=== PATIENT | male | born 1965 | race Caucasian/White ===

== ENCOUNTER 2021-06-26 10:28 | Outpatient (REF) | payer OTHER, SELFPAY ==
[2021-06-26 10:34] LABS: MANUAL DIFF FLAG NO
[2021-06-26 10:52] LABS: Basophils Percent Auto 0.3 % (0-2); Eosinophils Absolute Auto 0.1 X10*3/uL (0.0-0.4); Eosinophils Percent Auto 1.4 % (0-4); Hematocrit 45.1 % (42-52); Hemoglobin 15.5 g/dl (14.0-18.0); Imm Gran Abs Auto 0.05 X10*3/uL (0.00-0.03); Imm Gran Pct Auto 0.6 % (0.0-0.4); Lymphocytes Absolute Auto 2.2 X10*3/uL (1.2-4.9); Lymphocytes Percent Auto 28.3 % (20-40); Mean Corpuscular HGB Conc 34.4 g/dl (31.0-36.0); Mean Corpuscular Hemoglobin 30.2 pg (27.0-33.0); Mean Corpuscular Volume 87.9 fL (80-98); Mean Platelet Volume 9.3 fL (9.4-12.4); Monocytes Absolute Auto 0.5 X10*3/uL (0.1-1.2); Monocytes Percent Auto 5.9 % (2-11); Neutrophils Percent Auto 63.5 % (45-73); Platelet Count 248 X10*3/uL (160-400); Red Blood Count 5.13 X10*6/uL (4.60-5.80); Red Cell Distribution Width 12.7 % (11.0-16.0); White Blood Count 7.9 X10*3/uL (4.8-10.8)
[2021-06-26 11:02] LABS: Glucose Urine UA NEG (NEG); Leukocyte Esterase Urine NEG (NEG); Nitrite Urine NEG (NEG); Specific Gravity - Urine 1.025 (1.005-1.025); Urine Blood TRACE (NEG); Urine Ketones NEG (NEG); Urine Protein NEG (NEG-TRACE)
[2021-06-26 11:04] LABS: Appearance Urine CLEAR; Color Urine YELLOW
[2021-06-26 11:12] LABS: RBC Urine 0-2 /HPF (0); WBC Urine 0 /HPF (0-4)
[2021-06-26 11:37] LABS: PSA,Total (Free>4and<10) 0.16 ng/mL (0.00-4.00)
[2021-06-26 11:38] LABS: Alanine Aminotransferase 34 U/L (0-40); Albumin Level 4.5 g/dL (3.5-5.0); Alkaline Phosphatase 61 U/L (39-117); Anion Gap 16 (12-20); Aspartate Amino Transferase 18 U/L (5-37); Bilirubin Total 0.6 mg/dL (0.0-1.0); Blood Urea Nitrogen 12 mg/dL (9-16); Calcium 8.8 mg/dL (8.4-10.2); Carbon Dioxide 22 mmol/L (22-29); Chloride 104 mmol/L (96-108); Cholesterol 262 mg/dL; Estimated Glomerular Filt Rate > 60; Glucose Fasting 195 mg/dL (60-99); HDL Cholesterol 42 mg/dL; LDL Cholesterol Calculated 168 mg/dl; Potassium 4.2 mmol/L (3.3-5.1); Sodium 138 mmol/L (135-145); Total Protein 7.1 g/dL (6.5-8.0); Triglycerides 262 mg/dL
== END 2021-06-26 10:29 | disposition home or self-care (01) ==
LOC: HO.LNP 10:28
PROVIDERS: Visit Provider Internal Medicine
DX: Z12.5 Encounter for screening for malignant neoplasm of prostate (principal); E78.00 Pure hypercholesterolemia, unspecified; I10 Essential (primary) hypertension; G47.33 Obstructive sleep apnea (adult) (pediatric)
CPT/HCPCS: 80053; 80061; 81001; 81003; 84153; 85025

== ENCOUNTER → 2022-01-01 09:02 | Outpatient (BNVA) | payer OTHER, SELFPAY | PROVIDERS: PCP Internal Medicine; Visit Provider Internal Medicine | DX: S00.93XA Contusion of unspecified part of head, initial encounter (principal); S20.20XA Contusion of thorax, unspecified, initial encounter; S50.01XA Contusion of right elbow, initial encounter; S46.911A Strain of unspecified muscle, fascia and tendon at shoulder and upper arm level, right arm, initial encounter; S16.1XXA Strain of muscle, fascia and tendon at neck level, initial encounter; S46.811A Strain of other muscles, fascia and tendons at shoulder and upper arm level, right arm, initial encounter; W01.0XXA Fall on same level from slipping, tripping and stumbling without subsequent striking against object, initial encounter | CPT/HCPCS: 72040; 72072; 73080; 99204 ==

== ENCOUNTER → 2022-01-04 08:54 | Outpatient (BNVA) | payer OTHER, SELFPAY | PROVIDERS: PCP Internal Medicine; Visit Provider Physician Assistant Medical | DX: S06.2X0A Diffuse traumatic brain injury without loss of consciousness, initial encounter (principal); S16.1XXA Strain of muscle, fascia and tendon at neck level, initial encounter; S20.20XA Contusion of thorax, unspecified, initial encounter; S50.01XA Contusion of right elbow, initial encounter; W01.0XXA Fall on same level from slipping, tripping and stumbling without subsequent striking against object, initial encounter | CPT/HCPCS: 99213 ==

== ENCOUNTER → 2022-01-11 07:16 | Outpatient (BNVA) | payer OTHER, SELFPAY | PROVIDERS: PCP Internal Medicine; Visit Provider Physician Assistant Medical | DX: S00.93XA Contusion of unspecified part of head, initial encounter (principal); S16.1XXA Strain of muscle, fascia and tendon at neck level, initial encounter; S46.819A Strain of other muscles, fascia and tendons at shoulder and upper arm level, unspecified arm, initial encounter; S46.911A Strain of unspecified muscle, fascia and tendon at shoulder and upper arm level, right arm, initial encounter; S50.01XA Contusion of right elbow, initial encounter; W18.30XA Fall on same level, unspecified, initial encounter | CPT/HCPCS: 99213 ==

== ENCOUNTER 2022-01-11 11:29 | Outpatient (REF) | payer OTHER, SELFPAY ==
[2022-01-11 11:34] LABS: MANUAL DIFF FLAG NO
[2022-01-11 12:22] LABS: Basophils Percent Auto 0.5 % (0-2); Eosinophils Percent Auto 0.3 % (0-4); Hemoglobin 15.7 g/dl (14.0-18.0); Imm Gran Abs Auto 0.01 X10*3/uL (0.00-0.03); Imm Gran Pct Auto 0.1 % (0.0-0.4); Mean Corpuscular HGB Conc 33.4 g/dl (31.0-36.0); Mean Corpuscular Hemoglobin 30.4 pg (27.0-33.0); Mean Corpuscular Volume 90.9 fL (80.0-98.0); Mean Platelet Volume 9.3 fL (9.4-12.4); Monocytes Absolute Auto 0.4 X10*3/uL (0.1-1.2); Monocytes Percent Auto 5.6 % (2-11); Neutrophils Absolute Auto 4.8 x10*3/uL (2.0-8.3); Neutrophils Percent Auto 65.5 % (45-73); Platelet Count 228 X10*3/uL (160-400); Red Blood Count 5.17 X10*6/uL (4.60-5.80); Red Cell Distribution Width 13.1 % (11.0-16.0); White Blood Count 7.3 X10*3/uL (4.8-10.8)
[2022-01-11 12:36] LABS: Alanine Aminotransferase 24 U/L (0-40); Albumin Level 4.6 g/dL (3.5-5.0); Alkaline Phosphatase 46 U/L (39-117); Anion Gap 13 (12-20); Aspartate Amino Transferase 15 U/L (5-37); Blood Urea Nitrogen 19 mg/dL (9-16); Calcium 9.3 mg/dL (8.4-10.2); Carbon Dioxide 25 mmol/L (22-29); Chloride 104 mmol/L (96-108); Cholesterol 224 mg/dL; Estimated Glomerular Filt Rate > 60; Glucose Fasting 104 mg/dL (60-99); HDL Cholesterol 41 mg/dL; LDL Cholesterol Calculated 161 mg/dl; Potassium 4.6 mmol/L (3.3-5.1); Sodium 137 mmol/L (135-145); Total Protein 6.9 g/dL (6.5-8.0); Triglycerides 111 mg/dL
[2022-01-11 12:42] LABS: Appearance Urine HAZY; Color Urine YELLOW; Glucose Urine UA NEG (NEG); Leukocyte Esterase Urine NEG (NEG); Nitrite Urine NEG (NEG); Specific Gravity - Urine 1.025 (1.005-1.025); Urine Blood NEG (NEG); Urine Ketones NEG (NEG); Urine Protein NEG (NEG-TRACE)
[2022-01-11 12:59] LABS: PSA,Total (Free>4and<10) 0.36 ng/mL (0.00-4.00)
== END 2022-01-11 11:30 | disposition home or self-care (01) ==
LOC: HO.LNP 11:29
PROVIDERS: Visit Provider Internal Medicine
DX: Z00.00 Encounter for general adult medical examination without abnormal findings (principal); Z12.5 Encounter for screening for malignant neoplasm of prostate; E78.00 Pure hypercholesterolemia, unspecified; G47.33 Obstructive sleep apnea (adult) (pediatric); I10 Essential (primary) hypertension; G62.9 Polyneuropathy, unspecified
CPT/HCPCS: 80053; 80061; 81003; 84153; 85025

== ENCOUNTER → 2022-01-24 10:28 | Outpatient (BNVA) | payer OTHER, SELFPAY | PROVIDERS: PCP Internal Medicine; Visit Provider Physician Assistant Medical | DX: S00.93XD Contusion of unspecified part of head, subsequent encounter (principal); S46.819D Strain of other muscles, fascia and tendons at shoulder and upper arm level, unspecified arm, subsequent encounter; S29.012D Strain of muscle and tendon of back wall of thorax, subsequent encounter; S46.911D Strain of unspecified muscle, fascia and tendon at shoulder and upper arm level, right arm, subsequent encounter; S50.01XD Contusion of right elbow, subsequent encounter; X58.XXXD Exposure to other specified factors, subsequent encounter | CPT/HCPCS: 99213 ==

== ENCOUNTER → 2022-02-14 13:14 | Outpatient (BNVA) | payer OTHER, SELFPAY | PROVIDERS: PCP Internal Medicine; Visit Provider Physician Assistant Medical | DX: S00.93XD Contusion of unspecified part of head, subsequent encounter (principal); S16.1XXD Strain of muscle, fascia and tendon at neck level, subsequent encounter; S29.012D Strain of muscle and tendon of back wall of thorax, subsequent encounter; S46.911D Strain of unspecified muscle, fascia and tendon at shoulder and upper arm level, right arm, subsequent encounter; S50.01XD Contusion of right elbow, subsequent encounter; W18.30XD Fall on same level, unspecified, subsequent encounter | CPT/HCPCS: 99213 ==

== ENCOUNTER → 2022-02-21 07:59 | Outpatient (BNVA) | payer OTHER, SELFPAY | PROVIDERS: PCP Internal Medicine; Visit Provider Physician Assistant Medical | DX: S00.93XD Contusion of unspecified part of head, subsequent encounter (principal); S16.1XXD Strain of muscle, fascia and tendon at neck level, subsequent encounter; S29.012D Strain of muscle and tendon of back wall of thorax, subsequent encounter; W18.30XD Fall on same level, unspecified, subsequent encounter | CPT/HCPCS: 99213 ==

== ENCOUNTER → 2022-03-08 07:26 | Outpatient (BNVA) | payer OTHER, SELFPAY | PROVIDERS: PCP Internal Medicine; Visit Provider Physician Assistant Medical | DX: S00.93XD Contusion of unspecified part of head, subsequent encounter (principal); S16.1XXD Strain of muscle, fascia and tendon at neck level, subsequent encounter; S29.012D Strain of muscle and tendon of back wall of thorax, subsequent encounter; W18.30XD Fall on same level, unspecified, subsequent encounter | CPT/HCPCS: 99213 ==

== ENCOUNTER → 2022-03-25 07:25 | Outpatient (BNVA) | payer OTHER, SELFPAY | PROVIDERS: PCP Internal Medicine; Visit Provider Physician Assistant Medical | DX: S00.93XD Contusion of unspecified part of head, subsequent encounter (principal); S16.1XXD Strain of muscle, fascia and tendon at neck level, subsequent encounter; S29.012D Strain of muscle and tendon of back wall of thorax, subsequent encounter; W18.30XD Fall on same level, unspecified, subsequent encounter | CPT/HCPCS: 99213 ==

== ENCOUNTER → 2022-04-15 12:50 | Outpatient (BNVA) | payer OTHER, SELFPAY | PROVIDERS: PCP Internal Medicine; Visit Provider Internal Medicine | DX: M48.34 Traumatic spondylopathy, thoracic region (principal); S13.4XXD Sprain of ligaments of cervical spine, subsequent encounter | CPT/HCPCS: 99202 ==

== ENCOUNTER → 2022-04-25 07:30 | Outpatient (BNVA) | payer OTHER, SELFPAY | PROVIDERS: PCP Internal Medicine; Visit Provider Physician Assistant Medical | DX: S00.93XD Contusion of unspecified part of head, subsequent encounter (principal); S16.1XXD Strain of muscle, fascia and tendon at neck level, subsequent encounter; W01.0XXD Fall on same level from slipping, tripping and stumbling without subsequent striking against object, subsequent encounter | CPT/HCPCS: 99213 ==

== ENCOUNTER → 2022-05-23 07:38 | Outpatient (BNVA) | payer OTHER, SELFPAY | PROVIDERS: PCP Internal Medicine; Visit Provider Physician Assistant Medical | DX: S00.93XD Contusion of unspecified part of head, subsequent encounter (principal); S16.1XXD Strain of muscle, fascia and tendon at neck level, subsequent encounter; S29.012D Strain of muscle and tendon of back wall of thorax, subsequent encounter; W01.0XXD Fall on same level from slipping, tripping and stumbling without subsequent striking against object, subsequent encounter | CPT/HCPCS: 99213 ==

== ENCOUNTER 2022-06-19 06:10 | Outpatient (REF) | payer OTHER, SELFPAY ==
--- NOTE | ~2022-06-19 | FL_ITS ---
EXAMINATION: XR FLUOROSCOPY WITH IMAGES CLINICAL INFORMATION: Traumatic spondylopathy. COMPARISON: None. TECHNIQUE: Fluoroscopy performed by Mariela Ortiz. Fluoroscopy time: 0.3 minutes. Cumulative Dose: 0.0898 mGy. DAP: 0.0898 Gy-cm2. Images: 3. FINDINGS: There are at least 5 needles positioned adjacent to left pedicles of first, second, third, fourth and fifth vertebrae and adjacent contrast for pain management. Visualized bones are grossly unremarkable. FL/FL guidance in treatment room IMPRESSION: Fluoroscopy provided to referrer for pain management.
== END 2022-06-19 06:11 | disposition home or self-care (01) ==
LOC: HO.RADIR 06:10
PROVIDERS: Visit Provider Internal Medicine
DX: M48.34 Traumatic spondylopathy, thoracic region (principal)
CPT/HCPCS: 64490; 64491; 64492; J1040; J2795

== ENCOUNTER → 2022-06-27 07:25 | Outpatient (BNVA) | payer OTHER, SELFPAY | PROVIDERS: PCP Internal Medicine; Visit Provider Physician Assistant Medical | DX: S00.93XD Contusion of unspecified part of head, subsequent encounter (principal); S16.1XXD Strain of muscle, fascia and tendon at neck level, subsequent encounter; S29.012D Strain of muscle and tendon of back wall of thorax, subsequent encounter; W01.0XXD Fall on same level from slipping, tripping and stumbling without subsequent striking against object, subsequent encounter; M54.10 Radiculopathy, site unspecified | CPT/HCPCS: 99213 ==

== ENCOUNTER 2022-07-12 07:12 | Outpatient (REF) | payer OTHER, SELFPAY ==
--- NOTE | ~2022-07-12 | MR_ITS ---
EXAMINATION: MR THORACIC SPINE WITHOUT CONTRAST CLINICAL INFORMATION: Fall, sprain, radiculopathy. COMPARISON: Thoracic spine radiographs 01/01/2022. TECHNIQUE: MRI of the thoracic spine was obtained using routine sequences without contrast. FINDINGS: Alignment is normal. Vertebral heights are preserved. No acute bone marrow signal changes. There is a slight loss of intervertebral disc height and T2 signal intensity at multiple levels related to disc degeneration. There are a few shallow protrusions and/or bulging discs causing minimal indentation of the thecal sac. There is no canal or neuroforaminal compromise. No cord compression or abnormal intramedullary signal changes. Limited visualization of intrathoracic anatomy reveals no abnormal finding. Specifically there is no paraspinal soft tissue mass or collection. MR/MR thoracic spine wo con IMPRESSION: Mild multilevel degenerative spondylosis of the thoracic spine. No canal or neuroforaminal compromise. No cord compression or abnormal intramedullary signal changes.
== END 2022-07-12 07:13 | disposition home or self-care (01) ==
LOC: HO.MRI 07:12
PROVIDERS: Visit Provider Internal Medicine
DX: M54.14 Radiculopathy, thoracic region (principal)
CPT/HCPCS: 72146

== ENCOUNTER → 2022-08-01 07:35 | Outpatient (BNVA) | payer OTHER, SELFPAY | PROVIDERS: PCP Internal Medicine; Visit Provider Physician Assistant Medical | DX: S00.93XD Contusion of unspecified part of head, subsequent encounter (principal); S16.1XXD Strain of muscle, fascia and tendon at neck level, subsequent encounter; S29.012D Strain of muscle and tendon of back wall of thorax, subsequent encounter; W01.0XXD Fall on same level from slipping, tripping and stumbling without subsequent striking against object, subsequent encounter; M54.13 Radiculopathy, cervicothoracic region | CPT/HCPCS: 99213 ==

== ENCOUNTER 2023-01-14 11:38 | Outpatient (REF) | payer OTHER, SELFPAY ==
[2023-01-14 11:42] LABS: MANUAL DIFF FLAG NO
[2023-01-14 12:10] LABS: Basophils Percent Auto 0.4 % (0-2); Hematocrit 45.4 % (42.0-52.0); Hemoglobin 15.2 g/dl (14.0-18.0); Imm Gran Abs Auto 0.02 X10*3/uL (0.00-0.03); Imm Gran Pct Auto 0.2 % (0.0-0.4); Lymphocytes Absolute Auto 2.4 X10*3/uL (1.2-4.9); Lymphocytes Percent Auto 24.7 % (20-40); Mean Corpuscular HGB Conc 33.5 g/dl (31.0-36.0); Mean Corpuscular Hemoglobin 29.6 pg (27.0-33.0); Mean Corpuscular Volume 88.3 fL (80.0-98.0); Mean Platelet Volume 8.9 fL (9.4-12.4); Monocytes Absolute Auto 0.5 X10*3/uL (0.1-1.2); Neutrophils Absolute Auto 6.7 x10*3/uL (2.0-8.3); Neutrophils Percent Auto 69.7 % (45-73); Platelet Count 340 X10*3/uL (160-400); Red Blood Count 5.14 X10*6/uL (4.60-5.80); Red Cell Distribution Width 12.6 % (11.0-16.0); White Blood Count 9.6 X10*3/uL (4.8-10.8)
[2023-01-14 12:14] LABS: Appearance Urine Clear; Color Urine Dark Yellow; Glucose Urine UA Negative (Negative); Leukocyte Esterase Urine Negative (Negative); Nitrite Urine Negative (Negative); PH 6.5 (5.0-9.0); Specific Gravity - Urine >= 1.030 (1.005-1.025); UMIC TRIGGER UACC YES; Urine Blood Negative (Negative); Urine Ketones Trace mg/dL (Negative); Urine Protein 30 (1+) mg/dL (Neg-Trace)
[2023-01-14 12:18] LABS: Estimated Average Glucose 131 mg/dL; Hemoglobin A1c % 6.2 %
[2023-01-14 12:24] LABS: Bacteria Urine None Seen (None Seen); Calcium Oxalate Crystals Urine Present; Squamous Epithelial Cell Urine 0-2 /HPF (0-2); WBC Urine 0-5 /HPF (0-5)
[2023-01-14 12:32] LABS: Alanine Aminotransferase 26 U/L (0-40); Albumin Level 4.6 g/dL (3.5-5.0); Alkaline Phosphatase 44 U/L (39-117); Anion Gap 16 (12-20); Aspartate Amino Transferase 16 U/L (5-37); Bilirubin Direct 0.2 mg/dL (0.0-0.5); Bilirubin Total 0.6 mg/dL (0.0-1.0); Blood Urea Nitrogen 16 mg/dL (9-16); Calcium 9.2 mg/dL (8.4-10.2); Carbon Dioxide 22 mmol/L (22-29); Chloride 105 mmol/L (96-108); Cholesterol 273 mg/dL; Estimated Glomerular Filt Rate > 60; Glucose Fasting 140 mg/dL (60-99); HDL Cholesterol 50 mg/dL; LDL Cholesterol Calculated 191 mg/dl; Potassium 4.1 mmol/L (3.3-5.1); Sodium 139 mmol/L (135-145); Total Protein 6.8 g/dL (6.5-8.0); Triglycerides 163 mg/dL
[2023-01-14 12:47] LABS: Microalbum/Creatinine Ratio Ur 14.8 ug/mg cr
[2023-01-14 12:49] LABS: Reflex LDLD? No
== END 2023-01-14 11:39 | disposition home or self-care (01) ==
LOC: HO.LNP 11:38
PROVIDERS: Visit Provider Internal Medicine
DX: Z12.5 Encounter for screening for malignant neoplasm of prostate (principal); E78.00 Pure hypercholesterolemia, unspecified; G47.33 Obstructive sleep apnea (adult) (pediatric); I10 Essential (primary) hypertension; R73.03 Prediabetes
CPT/HCPCS: 80053; 80061; 80076; 81001; 82043; 82248; 83036; 84153; 85025

== ENCOUNTER 2023-02-10 15:50 | Outpatient (REF) | payer OTHER, SELFPAY ==
[2023-02-10 17:57] LABS: Appearance Urine Turbid; Color Urine Yellow; Glucose Urine UA Negative (Negative); Leukocyte Esterase Urine Negative (Negative); Nitrite Urine Negative (Negative); PH 5.5 (5.0-9.0); Specific Gravity - Urine >= 1.030 (1.005-1.025); Urine Blood Negative (Negative); Urine Ketones Trace mg/dL (Negative); Urine Protein Negative (Neg-Trace)
[2023-02-10 18:00] LABS: Bacteria Urine None Seen (None Seen); Hyaline Casts Urine 0-2 /LPF (0-2); RBC Urine 0-2 /HPF (0-2); Squamous Epithelial Cell Urine 0-2 /HPF (0-2); WBC Urine 0-5 /HPF (0-5)
== END 2023-02-10 15:51 | disposition home or self-care (01) ==
LOC: HO.LNP 15:50
PROVIDERS: Visit Provider Internal Medicine
DX: R31.9 Hematuria, unspecified (principal)
CPT/HCPCS: 81001

== ENCOUNTER 2023-05-13 10:47 | Outpatient (REF) | payer SELFPAY ==
[2023-05-13 11:31] LABS: Estimated Average Glucose 123 mg/dL; Hemoglobin A1c % 5.9 %
[2023-05-13 11:36] LABS: Alanine Aminotransferase 40 U/L (0-40); Albumin Level 4.9 g/dL (3.5-5.0); Alkaline Phosphatase 54 U/L (39-117); Aspartate Amino Transferase 20 U/L (5-37); Bilirubin Direct 0.2 mg/dL (0.0-0.5); Bilirubin Total 0.9 mg/dL (0.0-1.0); Cholesterol 210 mg/dL; Glucose Fasting 148 mg/dL (60-99); HDL Cholesterol 56 mg/dL; LDL Cholesterol Calculated 119 mg/dl; Total Protein 7.3 g/dL (6.5-8.0); Triglycerides 179 mg/dL
[2023-05-13 14:10] LABS: Reflex LDLD? No
== END 2023-05-13 10:48 | disposition home or self-care (01) ==
LOC: HO.LNP 10:47
PROVIDERS: Visit Provider Internal Medicine
DX: R73.03 Prediabetes (principal); E78.00 Pure hypercholesterolemia, unspecified
CPT/HCPCS: 80061; 80076; 82947; 83036

== ENCOUNTER 2023-08-19 11:36 | Outpatient (REF) | payer SELFPAY ==
[2023-08-19 12:32] LABS: Alanine Aminotransferase 38 U/L (0-40); Albumin Level 4.9 g/dL (3.5-5.0); Alkaline Phosphatase 48 U/L (39-117); Aspartate Amino Transferase 21 U/L (5-37); Bilirubin Direct 0.2 mg/dL (0.0-0.5); Bilirubin Total 0.7 mg/dL (0.0-1.0); Cholesterol 184 mg/dL (<200); Glucose Fasting 153 mg/dL (60-99); HDL Cholesterol 52 mg/dL (>40); LDL Cholesterol Calculated 94 mg/dL (<100); Total Protein 7.5 g/dL (6.5-8.0); Triglycerides 190 mg/dL (<150)
[2023-08-19 12:34] LABS: Estimated Average Glucose 126 mg/dL
[2023-08-19 13:48] LABS: Reflex LDLD? No
== END 2023-08-19 11:37 | disposition home or self-care (01) ==
LOC: HO.LNP 11:36
PROVIDERS: Visit Provider Internal Medicine
DX: R73.03 Prediabetes (principal); E78.00 Pure hypercholesterolemia, unspecified
CPT/HCPCS: 80061; 80076; 82947; 83036

== ENCOUNTER 2024-02-12 11:25 | Outpatient (REF) | payer SELFPAY ==
[2024-02-12 11:32] LABS: MANUAL DIFF FLAG NO
[2024-02-12 11:51] LABS: Estimated Average Glucose 143 mg/dL; Hemoglobin A1c % 6.6 % (<6.0)
[2024-02-12 11:54] LABS: Basophils Percent Auto 0.5 % (0-2); Eosinophils Absolute Auto 0.3 X10*3/uL (0.0-0.4); Eosinophils Percent Auto 3.9 % (0-4); Hematocrit 46.6 % (42.0-52.0); Hemoglobin 15.8 g/dl (14.0-18.0); Imm Gran Abs Auto 0.02 X10*3/uL (0.00-0.03); Imm Gran Pct Auto 0.2 % (0.0-0.4); Lymphocytes Percent Auto 23.5 % (20-40); Mean Corpuscular HGB Conc 33.9 g/dl (31.0-36.0); Mean Corpuscular Volume 88.6 fL (80.0-98.0); Mean Platelet Volume 9.1 fL (9.4-12.4); Monocytes Absolute Auto 0.4 X10*3/uL (0.1-1.2); Neutrophils Absolute Auto 5.7 x10*3/uL (2.0-8.3); Neutrophils Percent Auto 66.9 % (45-73); Platelet Count 216 X10*3/uL (160-400); Red Blood Count 5.26 X10*6/uL (4.60-5.80); Red Cell Distribution Width 12.3 % (11.0-16.0); White Blood Count 8.5 X10*3/uL (4.8-10.8)
[2024-02-12 11:55] LABS: Appearance Urine Clear; Color Urine Yellow; Glucose Urine UA Negative (Negative); Leukocyte Esterase Urine Negative (Negative); Nitrite Urine Negative (Negative); Urine Blood Negative (Negative); Urine Ketones Negative (Negative); Urine Protein Negative (Neg-Trace)
[2024-02-12 11:59] LABS: Bacteria Urine None Seen (None Seen); Hyaline Casts Urine 0-2 /LPF (0-2); RBC Urine 0-2 /HPF (0-2); Squamous Epithelial Cell Urine 0-2 /HPF (0-2); WBC Urine 0-5 /HPF (0-5)
[2024-02-12 12:13] LABS: Alanine Aminotransferase 43 U/L (0-40); Albumin Level 4.7 g/dL (3.5-5.0); Alkaline Phosphatase 50 U/L (39-117); Anion Gap 14 (12-20); Aspartate Amino Transferase 27 U/L (5-37); Bilirubin Total 0.7 mg/dL (0.0-1.0); Blood Urea Nitrogen 17 mg/dL (9-16); Calcium 9.5 mg/dL (8.4-10.2); Carbon Dioxide 25 mmol/L (22-29); Chloride 104 mmol/L (96-108); Cholesterol 147 mg/dL (<200); Estimated Glomerular Filt Rate > 60; Glucose Fasting 162 mg/dL (60-99); HDL Cholesterol 48 mg/dL (>40); LDL Cholesterol Calculated 73 mg/dL (<100); Potassium 4.4 mmol/L (3.3-5.1); Sodium 139 mmol/L (135-145); Total Protein 7.4 g/dL (6.5-8.0); Triglycerides 134 mg/dL (<150)
[2024-02-12 12:28] LABS: PSA,Total (Free>4and<10) 0.13 ng/mL (0.00-4.00)
[2024-02-12 12:41] LABS: Creatinine Urine 163.91 mg/dL; Microalbum/Creatinine Ratio Ur 8.5 ug/mg cr (<30)
== END 2024-02-12 11:26 | disposition home or self-care (01) ==
LOC: HO.LNP 11:25
PROVIDERS: Visit Provider Internal Medicine
DX: Z00.00 Encounter for general adult medical examination without abnormal findings (principal); Z12.5 Encounter for screening for malignant neoplasm of prostate; E78.00 Pure hypercholesterolemia, unspecified; R73.03 Prediabetes
CPT/HCPCS: 80053; 80061; 81001; 82043; 82570; 83036; 84153; 85025

== ENCOUNTER 2024-08-12 10:54 | Outpatient (REF) | payer SELFPAY ==
[2024-08-12 11:45] LABS: Estimated Average Glucose 143 mg/dL; Hemoglobin A1c % 6.6 % (<6.0)
[2024-08-12 12:00] LABS: Alanine Aminotransferase 42 U/L (0-40); Albumin Level 4.6 g/dL (3.5-5.0); Alkaline Phosphatase 56 U/L (39-117); Aspartate Amino Transferase 24 U/L (5-37); Bilirubin Direct 0.2 mg/dL (0.0-0.5); Bilirubin Total 0.7 mg/dL (0.0-1.0); Cholesterol 201 mg/dL (<200); Glucose Fasting 171 mg/dL (60-99); HDL Cholesterol 47 mg/dL (>40); LDL Cholesterol Calculated 116 mg/dL (<100); Total Protein 7.3 g/dL (6.5-8.0); Triglycerides 192 mg/dL (<150)
[2024-08-12 12:15] LABS: Reflex LDLD? No
== END 2024-08-12 10:55 | disposition home or self-care (01) ==
LOC: HO.LNP 10:54
PROVIDERS: Visit Provider Internal Medicine
DX: E11.9 Type 2 diabetes mellitus without complications (principal); E78.00 Pure hypercholesterolemia, unspecified
CPT/HCPCS: 80061; 80076; 82947; 83036

== ENCOUNTER 2025-02-17 10:34 | Outpatient (REF) | payer SELFPAY ==
[2025-02-17 10:38] LABS: MANUAL DIFF FLAG NO
[2025-02-17 11:13] LABS: Basophils Absolute Auto 0.1 X10*3/uL (0.0-0.2); Basophils Percent Auto 0.6 % (0-2); Eosinophils Absolute Auto 0.4 X10*3/uL (0.0-0.4); Eosinophils Percent Auto 4.6 % (0-4); Hematocrit 46.8 % (42.0-52.0); Hemoglobin 16.2 g/dl (14.0-18.0); Imm Gran Abs Auto 0.06 X10*3/uL (0.00-0.03); Imm Gran Pct Auto 0.7 % (0.0-0.4); Lymphocytes Absolute Auto 2.3 X10*3/uL (1.2-4.9); Lymphocytes Percent Auto 25.9 % (20-40); Mean Corpuscular HGB Conc 34.6 g/dl (31.0-36.0); Mean Corpuscular Volume 86.7 fL (80.0-98.0); Mean Platelet Volume 8.8 fL (9.4-12.4); Monocytes Absolute Auto 0.5 X10*3/uL (0.1-1.2); Monocytes Percent Auto 5.7 % (2-11); Neutrophils Absolute Auto 5.5 x10*3/uL (2.0-8.3); Neutrophils Percent Auto 62.5 % (45-73); Platelet Count 258 X10*3/uL (160-400); Red Cell Distribution Width 12.8 % (11.0-16.0); White Blood Count 8.7 X10*3/uL (4.8-10.8)
[2025-02-17 11:19] LABS: Appearance Urine Clear; Color Urine Yellow; Glucose Urine UA Negative (Negative); Leukocyte Esterase Urine Negative (Negative); Nitrite Urine Negative (Negative); PH 5.5 (5.0-9.0); Urine Blood Negative (Negative); Urine Ketones Negative (Negative); Urine Protein Negative (Neg-Trace)
[2025-02-17 11:27] LABS: Bacteria Urine None Seen (None Seen); Hyaline Casts Urine 0-2 /LPF (0-2); RBC Urine 0-2 /HPF (0-2); Squamous Epithelial Cell Urine 0-2 /HPF (0-2); WBC Urine 0-5 /HPF (0-5)
[2025-02-17 11:28] LABS: Estimated Average Glucose 166 mg/dL; Hemoglobin A1c % 7.4 % (<6.0)
[2025-02-17 11:40] LABS: Creatinine Urine 105.51 mg/dL; Microalbum/Creatinine Ratio Ur 6.6 ug/mg cr (<30)
[2025-02-17 11:48] LABS: PSA,Total (Free>4and<10) 0.14 ng/mL (0.00-4.00)
[2025-02-17 12:10] LABS: Albumin Level 4.7 g/dL (3.5-5.0); Alkaline Phosphatase 53 U/L (39-117); Anion Gap 14 (12-20); Aspartate Amino Transferase 22 U/L (5-37); Bilirubin Total 0.7 mg/dL (0.0-1.0); Blood Urea Nitrogen 16 mg/dL (9-16); Calcium 9.4 mg/dL (8.4-10.2); Carbon Dioxide 24 mmol/L (22-29); Chloride 103 mmol/L (96-108); Cholesterol 294 mg/dL (<200); Estimated Glomerular Filt Rate > 60; Glucose Fasting 182 mg/dL (60-99); HDL Cholesterol 45 mg/dL (>40); LDL Cholesterol Calculated 201 mg/dL (<100); Potassium 4.6 mmol/L (3.3-5.1); Sodium 136 mmol/L (135-145); Total Protein 7.4 g/dL (6.5-8.0); Triglycerides 241 mg/dL (<150)
[2025-02-17 12:27] LABS: Alanine Aminotransferase 36 U/L (0-40)
== END 2025-02-17 10:35 | disposition home or self-care (01) ==
LOC: HO.LNP 10:34
PROVIDERS: Visit Provider Internal Medicine
DX: Z00.00 Encounter for general adult medical examination without abnormal findings (principal); E78.00 Pure hypercholesterolemia, unspecified; I10 Essential (primary) hypertension; E11.9 Type 2 diabetes mellitus without complications; Z12.5 Encounter for screening for malignant neoplasm of prostate
CPT/HCPCS: 80053; 80061; 81001; 82043; 82570; 83036; 84153; 85025

== ENCOUNTER 2025-07-13 14:05 | Outpatient (AMB) | payer BC, SELFPAY ==
[2025-07-13 14:55] VITALS: BP 130/82; PULSE 91; BMI 32.6
--- NOTE | 2025-07-13 14:55 | A.OFFVIS_ITS ---
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 He recently had blood workup done which showed LDL cholesterol of 200. He does not have any family history of hyperlipidemia. He has known history of hypertension and is on amlodipine and valsartan. He also had herpes zoster involving the left side of the abdomen and has post herpetic neuralgia and is using gabapentin. He is complaining that off and on he gets lower extremity edema. He is saying that he has been holding his amlodipine for that purpose. It appears he was given statins but he had some issue with muscle aches and pains and it was discontinued. He is referred to us for management of high cholesterol. He has no chest discomfort shortness of breath with activities. He has never had any other medical issues. [facility] Medical History Tingling of upper extremity Family History (Updated 07/13/25 @ 14:57 by Radha Smith CMA) Father Heart attack Stented coronary artery Social History (Updated 07/13/25 @ 14:58 by Radha Smith CMA) Alcohol intake: current Alcohol intake frequency: holidays/special occasions only Alcohol type: beer, wine, hard liquor and other Patient Tobacco Use Status: Never used Tobacco Review of Systems Const Denies chills, Denies fatigue, Denies fever(s), Denies frequent falls, Denies weakness, Denies weight gain and Denies weight loss ENT Denies dizziness Card Denies chest pain, Denies leg edema, Denies lightheadedness, Denies palpitations, Denies dyspnea, Denies dyspnea on exertion and Denies orthopnea Resp Denies cough, Denies dyspnea and Denies dyspnea on exertion GI Denies bloating and Denies change in bowel habits Musc Denies muscle weakness, Denies numbness and Denies tingling Neuro Denies dizziness, Denies frequent falls, Denies numbness, Denies tingling and Denies weakness Endo Denies fatigue and Denies palpitations Physical Exam Vital Signs: Last Vital Signs Pulse 91 07/13/25 14:55 BP 130/82 07/13/25 14:55 BMI result Body Mass Index 32.6 GENERAL APPEARANCE: in no acute distress, pleasant. NECK: no carotid bruit, no jugular venous distention. SKIN: no suspicious lesions, warm and dry. HEART: no murmurs, regular rate and rhythm. LUNGS: clear to auscultation bilaterally. ABDOMEN: soft, nontender. EXTREMITIES: no edema. PERIPHERAL PULSES: equal. NEUROLOGIC: No gross deficits, AAO X 3 Office Procedures EKG Details: Sinus rhythm 91 beats per minute, normal axis, normal EKG, QTC 450 milliseconds. 59900-Cfgjrbvleniouovve, Complete Assessment & Plan Assessment & Plan (1) Hyperlipidemia: Code(s): E78.5 - Hyperlipidemia, unspecified Category: Medical Plan Pleasant 60-year-old gentleman who is here for 1st office visit. He has significantly elevated LDL and his LDL is in the range of familiar hyperlipidemia. He has not tolerated daily statin regimen. I have explained to him that most patients are able to tolerate statins if given once a week and slowly frequency can be increased to 3 times a week and eventually daily. I will start him on Crestor 20 mg once a week. If he tolerates it over the next month then he can make it 3 times a week and eventually daily. I will also add 10 mg of ezetimibe. We discussed about doing coronary calcium score to further risk stratify him and to define LDL target for him. If he has significant calcification for his age noticed on the coronary calcium score then we will consider starting him on PCSK9 and we will target LDL less than 55. Currently asymptomatic and does not need any stress testing. He will decrease the amlodipine to 5 mg daily. He will continue gabapentin because it works quite well for his post herpetic neuralgia. I have explained to him that gabapentin also is a common cause for lower extremity edema. Thank you for allowing me to participate in the care of your patient. Please feel free to contact me if you have any questions. Orders: Orders CT Coronary Calcium Score Today E78.5 - Hyperlipidemia, unspecified Medications: New rosuvastatin (Crestor) 20 mg PO .once a week 60 tabs 3RF E78.5 - Hyperlipidemia, unspecified amlodipine 5 mg PO DAILY ezetimibe 10 mg PO DAILY 90 tabs 3RF E78.5 - Hyperlipidemia, unspecified Coding Level of Care Code New Pt Level 4 (52298) Diagnoses Hyperlipidemia E78.5 CPT Codes EKG - CPT: 38967-Nngrpdzgxqfhppjpl, Complete ([id number])
--- OUTSIDE RECORDS SUMMARY | 2025-07-13 15:03 | XMS_ITS | Patient Health Record ---
Author Organization [facility] Address [address] [place] [address] Care Team Providers Care Luncheonette Operator Name Role Phone Bernard Nieves MD Primary Care Provider Cj Guajardo Jr Unavailable Reason For Referral Referring Provider First Name Bernard Referring Provider Last Name Ezequiel Referring Provider Speciality Internal M edicine Referred Organization [facility] Referred Provider Cj Gross Jr Referred Address [address],[place], [place],[address],[place] Referred Provider Specialty Gastroentero logy General Notes Nadia Felder 2024 08:31:32 AM >call Dr. Nieves's office to request an [facility] referral for visit with Dr. Gross on 06-20-25 for screening colon, Nadia Felder 06/02/2025 10:33:58 AM >requested referral from Dr. Nieves's office Referral Priority Routine Medications Medication SIG (Take, Route, Frequency, Duration) Notes Start Date End Date Status amLODIPine Besylate 10 MG 1 tablet Orall y Once a day for 30 day(s) 06/20/2025 Active Valsartan-hydroCHLOROthiaz maged 320-12.5 MG 1 tablet Orally Once a day for 30 day(s) 06/20/2025 Active Immunizations Vaccine Route Administration Date Status Comme nts Influenza Unknown 06/20/2025 Refused Social History Tobacco Use: Social History Observation Description Date Details (start date - stop date) Never Smoker NA - NA Tobacco Control (Standard) Question Answer Notes Tobacco use: Nonsmoker AUDIT-C (Standard) Question Answer Notes Did you have a drink contain ing alcohol in the past year? Yes How often did you have a dri nk containing alcohol in the past year? 2 to 3 times a week (3 points) How many drinks did you have on a typical day when you were drinking in the past year? 3 or 4 drinks (1 point) How often did you have six o r more drinks on one occasion in the past year? Never (0 point) Points 4 Interpretation Positive Problems Problem Type SNOMED Code ICD Code Onset Dates Problem Status W/U Status Risk Notes Problem Screening for malignant neoplasm of colon (884589921) Encounter for screening for malignant neoplasm of colon (Z12.11) Active confirmed Problem Preoperative examination (Z01.818) Active confirmed Vital Signs Temperature 98.2 degrees Fahrenheit 06/20/2025 Blood pressure diastolic 01 mm Hg 06/20/2025 Height 69 in 06/20/2025 Blood pressure systolic 001 mm Hg 06/20/2025 Weight 223 lbs 06/20/2025 BMI 32.93 kg/m2 06/20/2025 Encounters Encounter Location Date Provider Diagnosis [facility] [address] [place] [address] 06/20/2025 Cj Gross Jr Encounter for screening for malignant neoplasm of colon Z12.11 and Preoperative examination Z01.818 Assessments Encounter Date Diagnosis (ICD Code) Assessment Notes Treatment Notes Treatment Clinical Notes Section Notes 06/20/2025 Encounter for screening for malignant neoplasm of colon (ICD-10 - Z12.11) We discussed colonoscopy today. We discussed risks and benefits of the procedure today. He understands these and agrees to proceed. This will be scheduled at his convenience. 06/20/2025 Preoperative examination (ICD-10 - Z01.818) We discussed colonoscopy today. We discussed risks and benefits of the procedure today. He understands these and agrees to proceed. This will be scheduled at his convenience. Plan Of Treatment Future Test Test Name Order Date COLONOSCOPY 06/20/2025 Next Appt Details Provider Name:Cj dempsey Jr, 08/05/2025 08:20:00 AM, [address] [facility] , [place], [place], [id number], Insurance Providers Payer Name Payer Address Payer Phone Subscriber Number Group Number Insured Name Patient Relationship to Insured Coverage Start Date Coverage End Date [facility] PROFESSIONAL CLAIMS [address] [place] [address] [id number] СЕРГЕЙ POSADA Self - patient is the insured Medical (General) History Medical History History ICD Code Hypertension Diabetes type 2, borderline Postherpetic neuralgia FERNANDO/CPAP
--- OUTSIDE RECORDS SUMMARY | 2025-07-13 15:03 | XMS_ITS | Patient Health Record ---
Author Organization Bernard Nieves MD Address [address] [place], [place] [address] Care Team Providers Care Skelp Processor Name Role Phone Bernard Nieves Primary Care Provider Allergies Allergen (clinical drug ingredient) Drug/Non Drug Allergy documented on EMR Reaction Allergy Type Onset Date Status Medicinal product containing thiazide and acting as diuretic agent (product) Thiazide-Type Diuretics sun sensitivity Drug Allergy Active Results Component Value Reference Range Notes Hemoglobin A1c Reviewed date:08/19/2024 07:43:00 AM Interpretation: Performing Lab: Notes/Report: Hemoglobin A1c 6.8 Hemoglobin A1c Reviewed date:06/23/2025 02:01:36 PM Interpretation: Performing Lab: Notes/Report: Hemoglobin A1c 7.8 Hold Gold Reviewed date:08/12/2024 12:21:42 PM Interpretation: Performing Lab:[facility], [address] [place] [phone] Notes/Report: Hold Gold See Note Specimen held untested for 24 hours; Call to request Chemistry testing. Liver Panel Reviewed date:08/12/2024 12:23:14 PM Interpretation: Performing Lab:[facility], [address] [place] [phone] Notes/Report: Bilirubin Total 0.7 0.0-1.0 mg/dL Bilirubin Direct 0.2 0.0-0.5 mg/dL Aspartate Amino Transferase 24 5-37 U/L Alanine Aminotransferase 42 0-40 U/L Total Protein 7.3 6.5-8.0 g/dL Albumin Level 4.6 3.5-5.0 g/dL Alkaline Phosphatase 56 39-117 U/L Glucose Fasting Reviewed date:08/12/2024 12:23:02 PM Interpretation: Performing Lab:[facility], [address] [place] [phone] Notes/Report: Glucose Fasting 171 60-99 mg/dL A fasting glucose of 126 mg/dl or greater on more than one occasion is considered diagnostic of diabetes. Lipid Panel with Reflex Reviewed date:08/12/2024 12:21:51 PM Interpretation: Performing Lab:[facility], [address] [place] [phone] Notes/Report: Triglycerides 192 <150 mg/dL Desirable Triglyceride: [...] A1c Reviewed date:08/12/2024 12:22:00 PM Interpretation: Performing Lab:[address] [phone] Notes/Report: Hemoglobin A1c % 6.6 <6.0 % [...] average glucose, using the formula of the G5F-Jvxiyid Average Glucose study (ADAG), Diabetes Care, Vol.31,#8, 2007 Glucose, finger stick Reviewed date:08/19/2024 07:36:10 AM Interpretation: Performing Lab: Notes/Report: Value 158 Complete Blood Count Auto Di ff Reviewed date:02/17/2025 04:30:47 PM Interpretation: Performing Lab:[facility], [address] [place] [phone] Notes/Report: White Blood Count 8.7 4.8-10.8 X10*3/uL [...] NRBC Abs Auto 0.000 0.0-0.012 X10*3/uL Comprehensive [place]. Panel Fa st Reviewed date:02/17/2025 04:28:05 PM Interpretation: Performing Lab:[facility], [address] [place] [phone] Notes/Report: Sodium 136 135-145 mmol/L Potassium 4.6 [...] U/L Lipid Panel Reviewed date:02/24/2025 08:37:26 AM Interpretation:[facility] 02/24 Performing Lab:[address] [phone] Notes/Report: Triglycerides 241 <150 mg/dL Desirable Triglyceride: [...] (Free>4and<10) Reviewed date:02/17/2025 04:28:29 PM Interpretation: Performing Lab:[address] [phone] Notes/Report: PSA,Total (Free>4and<10) 0.14 0.00-4.00 ng/mL A [...] Random Reviewed date:02/17/2025 04:30:18 PM Interpretation: Performing Lab:[address] [phone] Notes/Report: Creatinine Urine 105.51 Microalbumin Urine 7.0 Microalbum/Creatinine Ratio Ur 6.6 <30 ug/mg cr Albumin/Creatinine Ratio Reference Ranges: Normal: < 30 ug/mg creatinine Microalbuminuria: 30 - 300 ug/mg creatinine Clinical Albuminuria: > 300 ug/mg creatinine Hemoglobin A1c Reviewed date:02/17/2025 04:28:19 PM Interpretation: Performing Lab:[address] [phone] Notes/Report: Hemoglobin A1c % 7.4 <6.0 % [...] average glucose, using the formula of the E1S-Rowbxkn Average Glucose study (ADAG), Diabetes Care, Vol.31,#8, Jun. 2007 UA ClnCatch+Micro w/rflx Cul t Reviewed date:02/17/2025 04:37:22 PM Interpretation: Performing Lab:[address] [phone] Notes/Report: Urine, Clean Catch Color Urine Yellow Appearance Urine Clear PH 5.5 5.0-9.0 Glucose Urine UA Negative Negative mg/dL Urine Blood Negative Negative Specific [place] - Urine 1.020 1.005-1.025 Urine Protein Negative Neg-Trace mg/dL Urine Ketones Negative Negative mg/dL Nitrite Urine Negative Negative Leukocyte Esterase Urine Negative Negative RBC Urine 0-2 0-2 /HPF WBC Urine 0-5 0-5 /HPF Squamous Epithelial Cell Urine 0-2 0-2 /HPF Bacteria Urine None Seen None Seen Hyaline Casts Urine 0-2 0-2 /LPF Glucose, finger stick Reviewed date:06/23/2025 01:55:04 PM Interpretation: Performing Lab: Notes/Report: Value 138 Reason For Referral Reason SCREEN FOR COLON [...] Last Name Ezequiel Referring Provider Speciality Internal edicine Referred Provider TOOTIE COLE Referred Provider Specialty Cardiology General Notes Flakita Valle 02/24/2025 08:41:12 AM >REFERRAL FOR NEW PATIENT, Flakita Valle 03/28/2025 11:59:14 AM >NOT BOOKED YET, EULALIO WILL CALL WITH APPT.HE IS NOT URGENT , WILL PROBABLY BE BOOKED FOR JUNE, Flakita Valle 04/29/2025 01:47:48 PM > [address] [facility], I CALLED LEELA TO INFORM HIM AND HE WILL CALL THEM, Flakita Valle 05/02/2025 02:05:44 PM >LEELA IS BOOKED FOR JUL 13 @ 215pm Referral Priority Routine Referral Appointment Date 07/13/2025 Reason umbilical hernia Diagnosis 1 Umbilical hernia (K4 2.9) Referral Organization Bernard Nieves MD Referring Provider First Name Bernard Referring Provider Last Name Ezequiel Referring Provider Speciality Internal M edicine Referred Provider Dave Lieberman Referred Provider Specialty Surgery General Notes OrvilleLeannElena 0 06/27/2025 10:14:17 AM >info faxed, Elena Jacinto 06/27/2025 11:47:05 AM >called patient with referral info and mailed Referral Priority Routine Referral Appointment Date 08/03/2025 Medications Medication SIG (Take, Route, Frequency, Duration) Notes Start Date End Date Status Gabapentin 300 MG 1 capsule Orally 3 times a day for 90 days 06/23/2025 Active Fluticasone Propionate 50 MCG/ACT 1 spray [...] ONE TABLET BY MOUTH EVERY DAY Active Immunizations Vaccine Route Administration Date Status Comme nts SARS-COV-2 Pfizer Unknown 05/11/2021 Administered SARS-COV-2 Pfizer Unknown 05/29/2021 Administered Fluarix Quadrivalent Unknown 08/07/2021 Refused Fluarix Quadrivalent Unknown 08/19/2023 Refused Fluarix Quadrivalent Unknown 08/22/2023 Refused Social History Tobacco Use: Social History [...] Never (0 point) Points 2 Interpretation Negative Problems Problem Type SNOMED Code ICD Code Onset Dates Problem Status W/U Status Risk Notes Problem 737031488 Neuropathy (G62.9) Active confirmed Problem 55794093 Essential hypert ension (I10) Active confirmed Problem Prediabetes (074691347) Prediabetes (R73.09) Active confirmed Problem Postherpetic neuralgia (8835006) Post herpetic neuralgia (B02.29) Active confirmed Problem 39809174 Hypercholesterol emia (E78.00) Active confirmed Problem 95613992 FERNANDO (obstructive sleep apnea) (G47.33) Active confirmed Problem 789830205 Type 2 diabetes mellitus without complication, without long-term current use of insulin (E11.9) Active confirmed Vital Signs Blood pressure diastolic 86 mm Hg 06/23/2025 jennyfer ght is down 2 pounds since 03-17-25 Height 68 in 06/23/2025 weight is down 2 pounds since 03-17-25 Blood pressure systolic 112 mm Hg 06/23/2025 weig ht is down 2 pounds since 03-17-25 Weight 223 lbs 06/23/2025 weight is down 2 pounds since 03-17-25 BMI 33.9 kg/m2 06/23/2025 weight is down 2 pounds since 03-17-25 Encounters Encounter Location Date Provider Diagnosis Bernard Nieves MD [address] [place] [address] Drive [address] [place] [id number] 08/12/2024 Bernard Nieves Type 2 diabetes brooks itus without complication, without long-term current use of insulin E11.9 and Hypercholesterolemia E78.00 Bernard Nieves MD [address] [place] [address] Drive [address] [place] [id number] 02/17/2025 Bernard Nieves Blood tests for rout ine general physical examination Z00.00 ; Hypercholesterolemia E78.00 ; Essential hypertension I10 ; Prediabetes R73.09 and Type 2 diabetes mellitus without complication, without long-term current use of insulin E11.9 Bernard Nieves MD [address] [place] [address] [address] [place] [id number] 08/19/2024 Bernard Nieves Prediabetes R73.09 ; History of asthma Z87.09 ; FERNANDO (obstructive sleep apnea) G47.33 ; Essential hypertension I10 ; Type 2 diabetes mellitus without complication, without long-term current use of insulin E11.9 ; Hypercholesterolemia E78.00 and Myalgia, multiple sites M79.18 Bernard Nieves MD [address] [place] [address] [address] [place] [id number] 02/24/2025 Bernard Nieves Annual physical exam Z00.00 ; Hypercholesterolemia E78.00 ; Post herpetic neuralgia B02.29 ; Essential hypertension I10 ; Type 2 diabetes mellitus without complication, without long-term current use of insulin E11.9 ; Abdominal pain R10.9 ; Colon cancer screening Z12.11 and Depression screening Z13.31 Bernard Nieves MD [address] [place] [id number] 03/17/2025 Bernard Nieves Neuropathy G62.9 and Essential hypertension I10 Bernard Nieves MD [address] [place] [id number] 06/23/2025 Bernard Nieves Type 2 diabetes brooks itus without complication, without long-term current use of insulin E11.9 ; Post herpetic neuralgia B02.29 and Umbilical hernia K42.9 Bernard Nieves MD [address] [place] [id number] 06/02/2025 Bernard Nieves Assessments Encounter Date Diagnosis (ICD Code) Assessment Notes Treatment Notes Treatment Clinical Notes Section Notes 08/12/2024 Type 2 diabetes mellitus without complication, without long-term current use of insulin (ICD-10 - E11.9) 08/12/2024 Hypercholesterolemia (ICD-10 - E78.00) 02/17/[address] ine general physical examination (ICD-10 - Z00.00) 08/19/2024 Prediabetes (ICD-10 - R73.09) doing well, no need for medication at this time, will continue to monitor 08/19/2024 History of asthma (ICD-10 - Z87.09) 02/24/2025 Annual physical exam (ICD-10 - Z00.00) referral for colonoscopy, labs reviewed and discussed with patient 02/24/2025 Hypercholesterolemia (ICD-10 - E78.00) referral to cardiology for cholesterol and intolernce to statins 03/17/2025 Neuropathy (ICD-10 - G62.9) will continue to monitor 06/23/2025 Type 2 diabetes mellitus without complication, without long-term current use of insulin (ICD-10 - E11.9) stable, no need for medication at this time 06/23/2025 Post herpetic neural mikie (ICD-10 - B02.29) patient verbalized understanding of medication and directions for use 02/17/2025 Hypercholesterolemia (ICD-10 - E78.00) 08/19/2024 FERNANDO (obstructive sle ep apnea) (ICD-10 - G47.33) can't use machine due to coughing 02/24/2025 Post herpetic neural mikie (ICD-10 - B02.29) stable 03/17/2025 Essential hypertensi on (ICD-10 - I10) paient verbalized understanding of medication and directions for use 06/23/2025 Umbilical hernia (ICD-10 - K42.9) referral to dr rebollar 02/17/2025 Essential hypertensi on (ICD-10 - I10) 08/19/2024 Essential hypertensi on (ICD-10 - I10) well controlled, at goal, will cntinue current regiment 02/24/2025 Essential hypertensi on (ICD-10 - I10) stable, will continue current regiment 02/17/2025 Prediabetes (ICD-10 - R73.09) 08/19/2024 Type 2 diabetes mellitus without complication, without long-term current use of insulin (ICD-10 - E11.9) doing well 02/24/2025 Type 2 diabetes mellitus without complication, without long-term current use of insulin (ICD-10 - E11.9) a1c is elevated, will continue current regiment and advised on diet, will contnue to monitor 02/17/2025 Type 2 diabetes mellitus without complication, without long-term current use of insulin (ICD-10 - E11.9) 08/19/2024 Hypercholesterolemia (ICD-10 - E78.00) can't take statins 02/24/2025 Abdominal pain (ICD- 10 - R10.9) pending diagnostic testing 08/19/2024 Myalgia, multiple si vivien (ICD-10 - M79.18) had to stop statin due to pain. this went away 02/24/2025 Colon cancer screeni ng (ICD-10 - Z12.11) guaiac negative 02/24/2025 Depression screening (ICD-10 - Z13.31) negative screen Plan Of Treatment Pending Test Test Name Order Date CT ABD & PELVIS WITH CONTRAST 02/24/2025 Next Appt Details Provider Name:Bernard Parson ier, 09/19/2025 09:00:00 AM, [address] [place] [address], [address], [phone], Provider Name:Bernard Parson ier, 02/20/2026 07:15:00 AM, [address] [place] [address], [place] [address], [place], [place], [phone], Provider Name:Bernard Parson ier, 02/27/2026 08:30:00 AM, [address] [place] [address], [address], [phone], Insurance Providers Payer Name Payer Address Payer Phone Subscriber Number Group Number Insured Name Patient Relationship to Insured Coverage Start Date Coverage End Date [employer] [address] [place], [place] [id number] Wu Roman Self - patient is the insured Medical (General) History Medical History History ICD Code sunsensitivity to thiazides cologuard 2021
== END 2025-07-13 15:26 | disposition home or self-care (01) ==
LOC: HO.HCS 14:06
PROVIDERS: PCP Internal Medicine; Visit Provider Internal Medicine Cardiovascular Disease
DX: E78.5 Hyperlipidemia, unspecified (principal)
CPT/HCPCS: 93010; 99204

== ENCOUNTER → 2025-07-13 14:05 | Outpatient (BNVA) | payer BC, SELFPAY | PROVIDERS: PCP Internal Medicine; Visit Provider Internal Medicine Cardiovascular Disease | DX: E78.5 Hyperlipidemia, unspecified (principal) | CPT/HCPCS: 93005 ==

== ENCOUNTER 2025-08-01 14:30 | Outpatient (AMB) | payer BC, SELFPAY ==
--- OUTSIDE RECORDS SUMMARY | 2025-02-17 03:00 | XMS_ITS ---
Author Organization Bernard Nieves MD Address [address] [place], [place] [id number] Care Team Providers Care Returned Goods Receiving Clerk Name Role Phone Bernard Nieves Primary Care Provider Results Component Value Reference Range Notes Complete Blood Count Auto Di ff Reviewed date:02/17/2025 04:30:47 PM Interpretation: Performing Lab:[facility], [address] [place] [phone] Notes/Report: White Blood Count 8.7 4.8-10.8 X10*3/uL [...] NRBC Abs Auto 0.000 0.0-0.012 X10*3/uL Comprehensive [place]. Panel Fa st Reviewed date:02/17/2025 04:28:05 PM Interpretation: Performing Lab:[facility], [address] [place] [phone] Notes/Report: Sodium 136 135-145 mmol/L Potassium 4.6 [...] U/L Lipid Panel Reviewed date:02/24/2025 08:37:26 AM Interpretation[facility] Performing Lab:[facility], [address] [place] [phone] Notes/Report: Triglycerides 241 <150 mg/dL Desirable Triglyceride: [...] (Free>4and<10) Reviewed date:02/17/2025 04:28:29 PM Interpretation: Performing Lab:[address] [phone] Notes/Report: PSA,Total (Free>4and<10) 0.14 0.00-4.00 ng/mL A [...] Random Reviewed date:02/17/2025 04:30:18 PM Interpretation: Performing Lab:[address] [phone] Notes/Report: Creatinine Urine 105.51 Microalbumin Urine 7.0 Microalbum/Creatinine Ratio Ur 6.6 <30 ug/mg cr Albumin/Creatinine Ratio Reference Ranges: Normal: < 30 ug/mg creatinine Microalbuminuria: 30 - 300 ug/mg creatinine Clinical Albuminuria: > 300 ug/mg creatinine Hemoglobin A1c Reviewed date:02/17/2025 04:28:19 PM Interpretation: Performing Lab:[address] [phone] Notes/Report: Hemoglobin A1c % 7.4 <6.0 % [...] average glucose, using the formula of the F0U-Suhvuzz Average Glucose study (ADAG), Diabetes Care, Vol.31,#8, Jun. 2007 UA ClnCatch+Micro w/rflx Cul t Reviewed date:02/17/2025 04:37:22 PM Interpretation: Performing Lab:[facility], [address] [place] [phone] Notes/Report: Urine, Clean Catch Color Urine Yellow Appearance Urine Clear PH 5.5 5.0-9.0 Glucose Urine UA Negative Negative mg/dL Urine Blood Negative Negative Specific [place] - Urine 1.020 1.005-1.025 Urine Protein Negative [...] Location Date Provider Diagnosis Bernard Nieves MD [address] [place] [address] [address] [place], [place] [phone] 02/17/2025 Bernard Nieves Blood tests for rout [...] Next Appt Details Provider Name:Bernard Parson ier, 09/19/2025 09:00:00 AM, [address], [address], [place], [place], [id number], Provider Name:Bernard Parson ier, 02/20/2026 07:15:00 AM, [address], [address], [place], [place], [phone], Provider Name:Bernard Parson ier, 02/27/2026 08:30:00 AM, [address] [place] [address], Suite [facility], [place], [place], [phone], Progress Notes * ABEL WuDOB:1965 ([age] yo M)Acc No.[id number]:02/17/2025 Progress Note Patient: Wu WORLEY Provider: Jessy Nieves MD :1965 A ge:59 Y S ex:Male Date:02/17/2025 Address:[address] [place] [address] [id number] Subjective: * Chief Complaints: * 1 . [...] - 02/17/2025 07:00 AM) L AB: Comprehensive [place]. Panel Fast (Collection Date & Time - [...] - 02/17/2025 07:00 AM) L AB: Comprehensive [place]. Panel Fast (Collection Date & Time - [...] - 02/17/2025 07:00 AM) L AB: Comprehensive [place]. Panel Fast (Collection Date & Time - [...] - 02/17/2025 07:00 AM) L AB: Comprehensive [place]. Panel Fast (Collection Date & Time - [...] 0 02/17/2025 Generated for Ilia roberts/Samantha/Jasitting on: 0 08/01/2025 04:55 PM EDT
--- OUTSIDE RECORDS SUMMARY | 2025-02-24 04:00 | XMS_ITS ---
Author Organization Bernard Nieves MD Address [address] [place], [place] [phone] Care Team Providers Care Live In Housekeeper Name Role Phone Bernard Nieves Primary Care Provider [phone] Allergies Allergen (clinical drug ingredient) Drug/Non Drug [...] Valle 02/24/2025 08:43:15 AM >REFERRAL FAXED TO GASTROLeonard Patti A 03/03/2025 10:33:44 AM >APPT SCHEDULED WITH DR [...] , WILL PROBABLY BE BOOKED FOR JUNE, CalosLalaIvis Womackclarence Pepper 04/29/2025 01:47:48 PM > 3 MESSAGES LEFT BY [facility], I CALLED LEELA TO INFORM HIM AND HE WILL CALL THEM, Ivis Valleclarence Pepper 05/02/2025 02:05:44 PM >LEELA IS BOOKED FOR JUL 13 @ 215pm, Ivis Valleclarence Pepper 07/21/2025 10:24:28 AM >OFFICE NOTE HAS BEEN RECEIVED Referral Priority Routine Referral Appointment Date 07/13/2025 REASON FOR VISIT annual visit, Due for repeat Cologuard, Overdue for Diabetic Eye Exam Patient will call to set up an appt, Jet 02/24 LIPIDS Medications Medication SIG (Take, Route, [...] Location Date Provider Diagnosis Bernard Nieves MD [address] [place], [place] [phone] 02/24/2025 Bernard Nieves Annual physical exam Z00.00 [...] scan, Scott roa: Provider Name:Bernard Parson ier, 09/19/2025 09:00:00 AM, [address] [place] [address], [address], [place], [place], [phone], Provider Name:Bernard Parson ier, 02/20/2026 07:15:00 AM, [address] [place] [address], Suite [facility], [place], [place], [phone], Provider Name:Bernard Parson ier, 02/27/2026 08:30:00 AM, [address] [place] [address], [address], [place], [place], [phone], Progress Notes * Wu ROMANDOB:1965 ([age] yo M)Acc No.[id number]:02/24/2025 Progress Notes Patient: Wu WORLEY Provider: Jessy Nieves MD :1965 A ge:59 Y S ex:Male Date:02/24/2025 Address:[address] [place], [place] [phone] Subjective: * Chief Complaints: * A nnual [...] mg/dL Urine Blood Negative Negative - Specific [place] - Urine 1.020 1.005-1.025 - Urine Protein [...] Auto 0.000 0.0-0.012 - X10*3/uL L ab:Comprehensive [place]. Panel Fast (Order Date - 02/17/2025) (Collection [...] MD Date: 0 02/24/2025 Generated for Ilia roberts/Samantha/Jasitting on: 0 08/01/2025 04:55 PM EDT History and Physical Notes * HPI (History [...] had two or more falls in the st year?: No Communication Needs Communication Needs Does [...] Bernard SCREEN FOR COLON CANCER 02/24/2025 Bernard Nieves HARIHARAN H YPERCHOLESTEROLEMIA
--- OUTSIDE RECORDS SUMMARY | 2025-03-17 10:15 | XMS_ITS ---
Author Organization Bernard Nieves MD Address [address] [place], [place] [phone] Care Team Providers Care Electrical Logging Engineer Name Role Phone Bernard Nieves Primary Care [...] Location Date Provider Diagnosis Bernard Nieves MD [address] [place] [phone] 03/17/2025 Bernard Nieves Neuropathy G62.9 and Essential [...] Up: 3 Months, Reason: Provider Name:Bernard miguel, 09/19/2025 09:00:00 AM, [address] [place] [address], [address], [phone], Provider Name:Bernard miguel, 02/20/2026 07:15:00 AM, [address] [place] [address], [address], [phone], Provider Name:Bernard miguel, 02/27/2026 08:30:00 AM, [address] [place] [address], [phone], Progress Notes * Wu ROMANDOB:1965 ([age] yo M)Acc No.[id number]:03/17/2025 Patient: Wu WORLEY Provider: Jessy Nieves MD :1965 A ge:60 Y S ex:Male Date:03/17/2025 Address:[address] [place], [place] [phone] Subjective: * Chief Complaints: * R EVIEW CT SCAN * HPI: S ymptom(s): patient is a 60 yo male here to discuss recent CT/ still nhaving pains in area of the shingles. had problems with muscl cramps since stopping the statins. * ROS: G eneral/Constitutional: Mary Oshea hills. D enies F atigue. D enies F ever. D enies H eadache. E NT: Denies S ore throat. R espiratory: Mary Oshea ough. D enies S hortness of breath [...] MD Date: 0 03/17/2025 Generated for Ilia roberts/Samantha/Paytonransmitting on: 0 08/01/2025 04:55 PM EDT History [...]
--- OUTSIDE RECORDS SUMMARY | 2025-06-02 06:36 | XMS_ITS ---
Author Organization Bernard Nieves MD Address [address] [place] [address] [address] [place] [phone] Care Team Providers Care Logistics Operations Director Name Role Phone Bernard Nieves Primary Care Provider [phone] REASON FOR VISIT ins referral Encounters Encounter Location Date Provider Diagnosis Bernard Nieves MD [address] [place] [address] [place] [phone] 06/02/2025 Bernard Nieves Plan Of Treatment Next Appt Details Provider Name:Bernard Parson ier, 09/19/2025 09:00:00 AM, [address] [place] [address], [address], [phone], Provider Name:Bernard miguel, 02/20/2026 07:15:00 AM, [address] [place] [address], [address] [place] [address], [phone], Provider Name:Bernard Parson ier, 02/27/2026 08:30:00 AM, [address] [place] [address], [address] [place] [address], [phone], Progress Notes * Wu ROMANDOB:1965 ([age] yo M)Acc No.[id number]:06/02/2025 Patient: Wu WORLEY :1965 A ge:60 Y S ex:Male Address:[address] [place], [address] * true * Date: Generated for Printi ng/Faxing/eTransmitting on: 0 08/01/2025 04:55 PM EDT
--- OUTSIDE RECORDS SUMMARY | 2025-06-23 10:00 | XMS_ITS ---
Author Organization Bernard Nieves MD Address [address] [place], [place] [phone] Care Team Providers Care Cycle Consultant Name Role Phone Bernard Nieves Primary Care [...] kg/m2 06/23/2025 weight is down 2 pounds [facility] 03-17-25 Encounters Encounter Location Date Provider Diagnosis Bernard Nieves MD [address] [place] [address] [place] [phone] 06/23/2025 Bernard Nieves Type 2 diabetes mellitus [...] use Umbilical hernia referral to dr bautista accounts clerk Referrals Referral Date Details 06/23/2025 06/23/2025, umbilica l hernia, Dave Mio Next Appt Details Follow Up: 3 Months, Reason: Provider Name:Bernard Parson ier, 09/19/2025 09:00:00 AM, [address], [address], [place], [place], [phone], Provider Name:Bernard Parson ier, 02/20/2026 07:15:00 AM, [address], [address], [place], [place], [phone], Provider Name:Bernard Parson ier, 02/27/2026 08:30:00 AM, [address] [place] [address] Drive, [address], [place], [place], [phone], Progress Notes * ALBINOWuDOB:1965 (7 8 yo M)Acc No.[id number]:06/23/2025 Progress Notes Patient: Wu WORLEY Provider: Jessy Nieves MD :1965 A ge:60 Y S ex:Male Date:06/23/2025 Address:[address] [place] [address], [place]en [id number] Subjective: * Chief Complaints: * 3 month [...] 2947 ASSAY, GLUCOSE, BLOOD QUANT, Modifiers: QW 40764 GLYCATED HEMOGLOBIN TEST, Modifiers: QW * Follow Up: 3 Months * * Sign off status: Completed true * Provider: Jessy Nieves MD Date: 0 06/23/2025 Generated for Ilia roberts/Samantha/Jasitting on: 0 08/01/2025 [...]
--- NOTE | 2025-08-01 14:42 | A.OFFVIS_ITS ---
Vital Signs 3 08/01/25 14:48 Height 5 ft 9 in Weight 220 lb BMI 32.5 BP 128/80 Blood Pressure Location Lt brachial Position Sitting Intake Visit Reasons: Umbilical hernia Intake Note: Patient is seen in office for evaluation of an umbilical hernia. 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 He 1st noted the hernia several years ago and feels that the hernia has gradually increased in size. He would like to get back to exercising and finds it difficult with the hernia being present. He denies nausea, vomiting, fever or chills. He denies previous surgery in this location. He does have occasional discomfort when the hernia is protruding or if he puts pressure on the hernia. The hernias usually easily reducible. [facility] Medical History (Updated 08/01/25 @ 15:07 by Benji Pablo MD) Hyperlipidemia Tingling of upper extremity Surgical History (Updated 08/01/25 @ 14:54 by SAEN Cassidy) History of foot surgery History of bilateral knee arthroplasty History of surgical removal of ganglion cyst Hx of shoulder surgery Family History Father Heart attack Stented coronary artery Social History Alcohol intake: current Alcohol intake frequency: holidays/special occasions only Alcohol type: beer, wine, hard liquor and other Patient Tobacco Use Status: Never used Tobacco Review of Systems Const All systems reviewed & are unremarkable except as noted in HPI and below Physical Exam Vital Signs: Last Vital Signs BP 128/80 08/01/25 14:48 BMI result Body Mass Index 32.5 Const General: cooperative and no acute distress Nutritional Appearance: well nourished Orientation/consciousness: patient oriented x3 Limitations: no limitations HEENT Head: Yes normocephalic and Yes atraumatic Ears: hearing grossly normal bilaterally Resp Effort & Inspection: normal respiratory effort, no audible wheezes, no cough and no respiratory distress Cardio Jugular venous distension: no JVD GI Other: Soft, nondistended, nontender, palpable umbilical hernias noted below measuring approximately 2 cm in diameter. Inspection: Yes normal to inspection Abdomen image: 2 1. Palpable hernia located just above the umbilicus measuring approximately 2 cm in diameter Skin Other: Warm, dry, no rash Neuro General: patient oriented x3 Extrem General: Yes no clubbing, cyanosis or edema Assessment & Plan Assessment & Plan (1) Umbilical hernia: Code(s): K42.9 - Umbilical hernia without obstruction or gangrene Category: Medical Qualifiers: Obstruction and gangrene presence: without obstruction or gangrene Q ualified Code(s): K42.9 - Umbilical hernia without obstruction or gangrene Plan 60-year-old male patient presenting with a gradually enlarging umbilical hernia which is causing some discomfort especially with lifting. On examination he has a reducible umbilical hernia which measures approximately 2 cm in diameter. The hernias mildly tender to palpation. I recommended an elective repair of the umbilical hernia with mesh and after discussion of the procedure, risks, and alternatives, he consents to the umbilical hernia repair with mesh Medications: Changed 2 From rosuvastatin (Crestor) 20 mg PO .once a week 60 tabs 3RF E78.5 - Hyperlipidemia, unspecified To rosuvastatin (Crestor) 10 mg PO .once a week E78.5 - Hyperlipidemia, unspecified Coding Level of Care Code New Pt Level 4 (85619) Diagnoses Umbilical hernia without obstruction and without gangrene K42.9 Obstruction and gangrene presence: without obstruction or gangrene
[2025-08-01 14:48] VITALS: BP 128/80; BMI 32.5
--- OUTSIDE RECORDS SUMMARY | 2025-08-01 16:55 | XMS_ITS | Patient Health Record ---
Author Organization Bernard Nieves MD Address [address] [place], [place] [id number] Care Team Providers Care Glass Furnace Operator Name Role Phone Bernard Nieves Primary Care [...] Gold Reviewed date:08/12/2024 12:21:42 PM Interpretation: Performing Lab:[facility], [address] [place] [phone] Notes/Report: Hold Gold See Note Specimen held untested for 24 hours; Call to request Chemistry testing. Liver Panel Reviewed date:08/12/2024 12:23:14 PM Interpretation: Performing Lab:[facility], [address] [place] [phone] Notes/Report: Bilirubin Total 0.7 0.0-1.0 mg/dL Bilirubin Direct 0.2 0.0-0.5 mg/dL Aspartate Amino Transferase 24 5-37 U/L Alanine Aminotransferase 42 0-40 U/L Total Protein 7.3 6.5-8.0 g/dL Albumin Level 4.6 3.5-5.0 g/dL Alkaline Phosphatase 56 39-117 U/L Glucose Fasting Reviewed date:08/12/2024 12:23:02 PM Interpretation: Performing Lab:[facility], [address] [place] [phone] Notes/Report: Glucose Fasting 171 60-99 mg/dL A fasting glucose of 126 mg/dl or greater on more than one occasion is considered diagnostic of diabetes. Lipid Panel with Reflex Reviewed date:08/12/2024 12:21:51 PM Interpretation: Performing Lab:[facility], [address] [place] [phone] Notes/Report: Triglycerides 192 <150 mg/dL Desirable Triglyceride: [...] A1c Reviewed date:08/12/2024 12:22:00 PM Interpretation: Performing Lab:[address] [phone] Notes/Report: Hemoglobin A1c % 6.6 <6.0 % [...] average glucose, using the formula of the W2G-Zdjohup Average Glucose study (ADAG), Diabetes Care, Vol.31,#8, 2007 Glucose, finger stick Reviewed date:08/19/2024 07:36:10 AM Interpretation: Performing Lab: Notes/Report: Value 158 Complete Blood Count Auto Di ff Reviewed date:02/17/2025 04:30:47 PM Interpretation: Performing Lab:[facility], [address] [place] [phone] Notes/Report: White Blood Count 8.7 4.8-10.8 X10*3/uL [...] NRBC Abs Auto 0.000 0.0-0.012 X10*3/uL Comprehensive Jupiter. Panel Fa st Reviewed date:02/17/2025 04:28:05 PM Interpretation: Performing Lab:[facility], [address] [place] [phone] Notes/Report: Sodium 136 135-145 mmol/L Potassium 4.6 [...] U/L Lipid Panel Reviewed date:02/24/2025 08:37:26 AM Interpretation:[facility] LIPIDS 02/24 Performing Lab:[address] [phone] Notes/Report: Triglycerides 241 <150 mg/dL Desirable Triglyceride: [...] (Free>4and<10) Reviewed date:02/17/2025 04:28:29 PM Interpretation: Performing Lab:[address] [phone] Notes/Report: PSA,Total (Free>4and<10) 0.14 0.00-4.00 ng/mL A [...] Random Reviewed date:02/17/2025 04:30:18 PM Interpretation: Performing Lab:[address] [phone] Notes/Report: Creatinine Urine 105.51 Microalbumin Urine 7.0 Microalbum/Creatinine Ratio Ur 6.6 <30 ug/mg cr Albumin/Creatinine Ratio Reference Ranges: Normal: < 30 ug/mg creatinine Microalbuminuria: 30 - 300 ug/mg creatinine Clinical Albuminuria: > 300 ug/mg creatinine Hemoglobin A1c Reviewed date:02/17/2025 04:28:19 PM Interpretation: Performing Lab:[address] [phone] Notes/Report: Hemoglobin A1c % 7.4 <6.0 % [...] average glucose, using the formula of the U3N-Azkyzcr Average Glucose study (ADAG), Diabetes Care, Vol.31,#8, Jun. 2007 UA ClnCatch+Micro w/rflx Cul t Reviewed date:02/17/2025 04:37:22 PM Interpretation: Performing Lab:[address] [phone] Notes/Report: Urine, Clean Catch Color Urine Yellow Appearance Urine Clear PH 5.5 5.0-9.0 Glucose Urine UA Negative Negative mg/dL Urine Blood Negative Negative Specific [place] - Urine 1.020 1.005-1.025 Urine Protein Negative [...] 01:47:48 PM > 3 MESSAGES LEFT BY [facility], I CALLED LEELA TO INFORM HIM AND HE WILL CALL THEM, Flakita Valle 05/02/2025 02:05:44 PM >LEELA IS BOOKED FOR JUL 13 @ 215pm, Flakita Valle 07/21/2025 10:24:28 AM >OFFICE NOTE HAS BEEN [...] Problem Status W/U Status Risk Notes Problem 889525514 Neuropathy (G62.9) Active confirmed Problem 73490988 Essential hypert ension (I10) Active confirmed Problem Prediabetes (255686169) Prediabetes (R73.09) Active confirmed Problem Postherpetic neuralgia (1001834) Post herpetic neuralgia (B02.29) Active confirmed Problem 02204769 Hypercholesterol emia (E78.00) Active confirmed Problem 25589688 FERNANDO (obstructive sleep apnea) (G47.33) Active confirmed Problem 397953406 Type 2 diabetes mellitus without complication, without [...] Location Date Provider Diagnosis Bernard Nieves MD [address] [place] [address] Drive [address] [place] [id number] 08/12/2024 Bernard Nieves Type 2 diabetes brooks itus without complication, without long-term current use of insulin E11.9 and Hypercholesterolemia E78.00 Bernard Nieves MD [address] [place] [address] Drive [address] [place] [id number] 02/17/2025 Bernard Nieves Blood tests for rout ine general physical examination Z00.00 ; Hypercholesterolemia E78.00 ; Essential hypertension I10 ; Prediabetes R73.09 and Type 2 diabetes mellitus without complication, without long-term current use of insulin E11.9 Bernard Nieves MD [address] [place] [id number] 08/19/2024 Bernard Nieves Prediabetes R73.09 ; History of asthma Z87.09 ; FERNANDO (obstructive sleep apnea) G47.33 ; Essential hypertension I10 ; Type 2 diabetes mellitus without complication, without long-term current use of insulin E11.9 ; Hypercholesterolemia E78.00 and Myalgia, multiple sites M79.18 Bernard Nieves MD [address] [id number] 02/24/2025 Bernard Nieves Annual physical exam Z00.00 ; Hypercholesterolemia E78.00 ; Post herpetic neuralgia B02.29 ; Essential hypertension I10 ; Type 2 diabetes mellitus without complication, without long-term current use of insulin E11.9 ; Abdominal pain R10.9 ; Colon cancer screening Z12.11 and Depression screening Z13.31 Bernard Nieves MD [address] [id number] 03/17/2025 Bernard Nieves Neuropathy G62.9 and Essential hypertension I10 Bernard Nieves MD [address] [place] [address] [address] [id number] 06/23/2025 Bernard Nieves Type 2 diabetes brooks itus without complication, without long-term current use of insulin E11.9 ; Post herpetic neuralgia B02.29 and Umbilical hernia K42.9 Bernard Nieves MD [address] [place] [id number] 06/02/2025 Bernard Nieves Assessments Encounter Date Diagnosis [...] WITH CONTRAST 02/24/2025 Next Appt Details Provider Name:Brenard Parson ier, 09/19/2025 09:00:00 AM, [address] [place] [address], [address], [place], [place], [phone], Provider Name:Bernard miguel, 02/20/2026 07:15:00 AM, [address] [place] [address], [address], [place], [place], [phone], Provider Name:Bernard clayr, 02/27/2026 08:30:00 AM, [address] [place] [address], [address], [place], [place], [phone], Insurance Providers Payer Name Payer Address Payer Phone Subscriber Number Group Number Insured Name Patient Relationship to Insured Coverage Start Date Coverage End Date [employer] [address] [place], [place] [phone] [id number] Wu Roman Self - patient is the insured Medical (General) History Medical History History ICD Code sunsensitivity to thiazides cologuard 2021
--- OUTSIDE RECORDS SUMMARY | 2025-08-01 16:55 | XMS_ITS | Patient Health Record ---
Author Organization [facility] Address [address] [place] [address] Care Team Providers Care Digital Production Artist Name Role Phone Bernard Nieves MD Primary Care Provider Cj Guajardo Jr Unavailable Reason For Referral Referring Provider First Name Bernard Referring Provider Last Name Ezequiel Referring Provider Speciality Internal M edicine Referred Organization [facility] Referred Provider Cj Gross Jr Referred Address [address],[place], [place],[address],[place] Referred Provider Specialty Gastroentero logy General Notes Nadia Felder 2024 08:31:32 AM >call Dr. Nieves's office to request an [facility] blue referral for visit with Dr. [...] Problem Screening for malignant neoplasm of colon (655954450) Encounter for screening for malignant neoplasm of colon (Z12.11) Active confirmed Problem Pre-procedure evaluation check (890599294) Preoperative examination (Z01.818) Active confirmed Vital Signs Temperature 98.2 degrees Fahrenheit 06/20/2025 Blood pressure diastolic 01 mm Hg 06/20/2025 Height 69 in 06/20/2025 Blood pressure systolic 001 mm Hg 06/20/2025 Weight 223 lbs 06/20/2025 BMI 32.93 kg/m2 06/20/2025 Encounters Encounter Location Date Provider Diagnosis [facility] [address] [place] [address] 06/20/2025 Cj Gross Jr Encounter for screening [...] Appt Details Provider Name:Cj dempsey Jr, 08/05/2025 07:30:00 AM, [address] , [place], [place], [phone], Insurance Providers Payer Name Payer Address Payer Phone Subscriber Number Group Number Insured Name Patient Relationship to Insured Coverage Start Date Coverage End Date [facility] [employer] [address] [place] [address] [phone] [id number] СЕРГЕЙ POSADA Self - patient is the insured Medical (General) History Medical History History ICD Code Hypertension Diabetes type 2, borderline Postherpetic neuralgia FERNANDO/CPAP
== END 2025-08-01 15:43 | disposition home or self-care (01) ==
LOC: HO.HGS 14:30
PROVIDERS: PCP Internal Medicine; Visit Provider Surgery
DX: K42.9 Umbilical hernia without obstruction or gangrene (principal)
CPT/HCPCS: 99204

== ENCOUNTER → 2025-08-01 14:30 | Outpatient (BNVA) | payer BC, SELFPAY | PROVIDERS: PCP Internal Medicine; Visit Provider Surgery | DX: K42.9 Umbilical hernia without obstruction or gangrene (principal); Z13.89 Encounter for screening for other disorder ==

== ENCOUNTER 2025-08-05 06:24 | Day surgery (SDC) | payer BC, SELFPAY ==
--- OUTSIDE RECORDS SUMMARY | 2025-07-15 11:40 | XMS_ITS | Patient Health Record ---
Author Organization Bernard Nieves MD Address [address] [place], [place] [id number] Care Team Providers Care Lockstitch Cup Setter Name Role Phone Bernard Nieves Primary Care Provider [phone] Allergies Allergen (clinical drug ingredient) Drug/Non Drug [...] Gold Reviewed date:08/12/2024 12:21:42 PM Interpretation: Performing Lab:[facility], [address] [place] [phone] Notes/Report: Hold Gold See Note Specimen held untested for 24 hours; Call to request Chemistry testing. Liver Panel Reviewed date:08/12/2024 12:23:14 PM Interpretation: Performing Lab:[facility], [address] [phone] Notes/Report: Bilirubin Total 0.7 0.0-1.0 mg/dL Bilirubin Direct 0.2 0.0-0.5 mg/dL Aspartate Amino Transferase 24 5-37 U/L Alanine Aminotransferase 42 0-40 U/L Total Protein 7.3 6.5-8.0 g/dL Albumin Level 4.6 3.5-5.0 g/dL Alkaline Phosphatase 56 39-117 U/L Glucose Fasting Reviewed date:08/12/2024 12:23:02 PM Interpretation: Performing Lab:[facility], [address] [phone] Notes/Report: Glucose Fasting 171 60-99 mg/dL A fasting glucose of 126 mg/dl or greater on more than one occasion is considered diagnostic of diabetes. Lipid Panel with Reflex Reviewed date:08/12/2024 12:21:51 PM Interpretation: Performing Lab:[facility], [address] [phone] Notes/Report: Triglycerides 192 <150 mg/dL Desirable Triglyceride: [...] A1c Reviewed date:08/12/2024 12:22:00 PM Interpretation: Performing Lab:[address] [phone] Notes/Report: Hemoglobin A1c % 6.6 <6.0 % [...] average glucose, using the formula of the B7B-Fwyfejl Average Glucose study (ADAG), Diabetes Care, Vol.31,#8, 2007 Glucose, finger stick Reviewed date:08/19/2024 07:36:10 AM Interpretation: Performing Lab: Notes/Report: Value 158 Complete Blood Count Auto Di ff Reviewed date:02/17/2025 04:30:47 PM Interpretation: Performing Lab:[facility], [address] [place] [phone] Notes/Report: White Blood Count 8.7 4.8-10.8 X10*3/uL [...] NRBC Abs Auto 0.000 0.0-0.012 X10*3/uL Comprehensive [place]. Panel Fa st Reviewed date:02/17/2025 04:28:05 PM Interpretation: Performing Lab:[facility], [address] [place] [phone] Notes/Report: Sodium 136 135-145 mmol/L Potassium 4.6 [...] U/L Lipid Panel Reviewed date:02/24/2025 08:37:26 AM Interpretation:[facility] LIP[facility] 02/24 Performing Lab:[address] [phone] Notes/Report: Triglycerides 241 <150 mg/dL Desirable Triglyceride: [...] (Free>4and<10) Reviewed date:02/17/2025 04:28:29 PM Interpretation: Performing Lab:[address] [phone] Notes/Report: PSA,Total (Free>4and<10) 0.14 0.00-4.00 ng/mL A [...] Random Reviewed date:02/17/2025 04:30:18 PM Interpretation: Performing Lab:[address] [phone] Notes/Report: Creatinine Urine 105.51 Microalbumin Urine 7.0 Microalbum/Creatinine Ratio Ur 6.6 <30 ug/mg cr Albumin/Creatinine Ratio Reference Ranges: Normal: < 30 ug/mg creatinine Microalbuminuria: 30 - 300 ug/mg creatinine Clinical Albuminuria: > 300 ug/mg creatinine Hemoglobin A1c Reviewed date:02/17/2025 04:28:19 PM Interpretation: Performing Lab:[address] [phone] Notes/Report: Hemoglobin A1c % 7.4 <6.0 % [...] average glucose, using the formula of the L7D-Jsckvbx Average Glucose study (ADAG), Diabetes Care, Vol.31,#8, Jun. 2007 UA ClnCatch+Micro w/rflx Cul t Reviewed date:02/17/2025 04:37:22 PM Interpretation: Performing Lab:[address] [phone] Notes/Report: Urine, Clean Catch Color Urine Yellow Appearance Urine Clear PH 5.5 5.0-9.0 Glucose Urine UA Negative Negative mg/dL Urine Blood Negative Negative Specific [place] - Urine 1.020 1.005-1.025 Urine Protein Negative [...] 01:47:48 PM > 3 MESSAGES LEFT BY [facility], I CALLED LEELA [...] Problem Status W/U Status Risk Notes Problem 306368986 Neuropathy (G62.9) Active confirmed Problem 22385872 Essential hypert ension (I10) Active confirmed Problem Prediabetes (102821153) Prediabetes (R73.09) Active confirmed Problem Postherpetic neuralgia (7643705) Post herpetic neuralgia (B02.29) Active confirmed Problem 19213700 Hypercholesterol emia (E78.00) Active confirmed Problem 73060029 FERNANDO (obstructive sleep apnea) (G47.33) Active confirmed Problem 098983233 Type 2 diabetes mellitus without complication, without [...] Location Date Provider Diagnosis Bernard Nieves MD [address] [place] [address] Drive [address] [place] [id number] 08/12/2024 Bernard Nieves Type 2 diabetes brooks itus without complication, without long-term current use of insulin E11.9 and Hypercholesterolemia E78.00 Bernard Nieves MD [address] [place] [address] Drive [address] [place] [id number] 02/17/2025 Bernard Nieves Blood tests for rout ine general physical examination Z00.00 ; Hypercholesterolemia E78.00 ; Essential hypertension I10 ; Prediabetes R73.09 and Type 2 diabetes mellitus without complication, without long-term current use of insulin E11.9 Bernard Nieves MD [address] [place] [address] Drive [address] [place] [id number] 08/19/2024 Bernard Nieves Prediabetes R73.09 ; History of asthma Z87.09 ; FERNANDO (obstructive sleep apnea) G47.33 ; Essential hypertension I10 ; Type 2 diabetes mellitus without complication, without long-term current use of insulin E11.9 ; Hypercholesterolemia E78.00 and Myalgia, multiple sites M79.18 Bernard Nieves MD [address] [place] [address] Drive [address] [place] [id number] 02/24/2025 Bernard Nieves Annual physical exam Z00.00 ; Hypercholesterolemia E78.00 ; Post herpetic neuralgia B02.29 ; Essential hypertension I10 ; Type 2 diabetes mellitus without complication, without long-term current use of insulin E11.9 ; Abdominal pain R10.9 ; Colon cancer screening Z12.11 and Depression screening Z13.31 Bernard Nieves MD [address] [place] [id number] 03/17/2025 Bernard Nieves Neuropathy G62.9 and Essential hypertension I10 Bernard Nieves MD [address] [place] [id number] 06/23/2025 Bernard Nieves Type 2 diabetes brooks itus without complication, without long-term current use of insulin E11.9 ; Post herpetic neuralgia B02.29 and Umbilical hernia K42.9 Bernard Nieves MD [address] [place] [id number] 06/02/2025 Bernard Nieves Assessments Encounter Date Diagnosis [...] Provider Name:Bernard Parson ier, 09/19/2025 09:00:00 AM, [address] [place] [address], [address], [phone], Provider Name:Bernard Parson ier, 02/20/2026 07:15:00 AM, [address] [place] [address], [place] [address], [place], [place], [phone], Provider Name:Bernard Parson ier, 02/27/2026 08:30:00 AM, [address] [place] [address], [address], [phone], Insurance Providers Payer Name Payer Address Payer Phone Subscriber Number Group Number Insured Name Patient Relationship to Insured Coverage Start Date Coverage End Date [employer] [address] [place], [place] [id number] Wu Roman Self - patient is the insured Medical (General) History Medical History History ICD Code sunsensitivity to thiazides cologuard 2021
--- OUTSIDE RECORDS SUMMARY | 2025-07-15 11:40 | XMS_ITS | Patient Health Record ---
Author Organization [facility] Address [address] [place] [address] Care Team Providers Care Fermenting Cellar Dropper Name Role Phone Bernard Nieves MD Primary Care Provider Cj Guajardo Jr Unavailable Reason For Referral Referring Provider First Name Bernard Referring Provider Last Name Ezequiel Referring Provider Speciality Internal M edicine Referred Organization [facility] Referred Provider Cj Gross Jr Referred Address [address],[place], [place],[address],[place] Referred Provider Specialty Gastroentero logy General Notes Nadia Felder 2024 08:31:32 AM >call Dr. Nieves's office to request an [facility] blue referral for visit with Dr. Gross [...] Problem Screening for malignant neoplasm of colon (782309526) Encounter for screening for malignant neoplasm of colon (Z12.11) Active confirmed Problem Preoperative examination (Z01.818) Active confirmed Vital Signs Temperature 98.2 degrees Fahrenheit 06/20/2025 Blood pressure diastolic 01 mm Hg 06/20/2025 Height 69 in 06/20/2025 Blood pressure systolic 001 mm Hg 06/20/2025 Weight 223 lbs 06/20/2025 BMI 32.93 kg/m2 06/20/2025 Encounters Encounter Location Date Provider Diagnosis [facility] [address] [place] [address] 06/20/2025 Cj Gross Jr Encounter for screening [...] Name:Cj dempsey Jr, 08/05/2025 08:20:00 AM, [address] [facility] , [place], [place], [phone], Insurance Providers Payer Name Payer Address Payer Phone Subscriber Number Group Number Insured Name Patient Relationship to Insured Coverage Start Date Coverage End Date [facility] [employer] [address] [place] [address] [id number] СЕРГЕЙ POSADA Self - patient is the insured Medical (General) History Medical History History ICD Code Hypertension Diabetes type 2, borderline Postherpetic neuralgia FERNANDO/CPAP
[2025-08-03 10:47] VITALS: BMI 32.9
--- NOTE | 2025-08-03 13:35 | P.CONAN_ITS ---
Documented by User: Tisha Soto NP 08/03/25 13:38 HPI - Anesthesia Eval Consult details Narrative: 60 yr old male for colonoscopy Post herpetic neuralgia: using gabapentin High triglycerides: 241, was started on zetia end of Jun 2025 FERNANDO: CPAP status unknown [facility] Active Problems Active Problems: All Active Problems (Updated 08/03/25 @ 10:22 by Opal Ndiaye RN) Umbilical hernia (Acute) Herpes zoster (Acute) Traumatic spondylopathy of thoracic region (Acute) Sprain of ligament of cervicothoracic region of spine (Acute) Hyperlipidemia (Acute) Tingling of upper extremity (Acute) Past Medical History Medical History Sleep apnea Postherpetic neuralgia Diabetes HTN (hypertension) Hyperlipidemia Tingling of upper extremity Family History Family History Father Heart attack Stented coronary artery Surgical History Surgical History History of foot surgery History of bilateral knee arthroplasty History of surgical removal of ganglion cyst Hx of shoulder surgery Social History Social History Are you a primary respiratory care instructor to a significant other at home: No Do you presently have visiting nurse or other home services: No Alcohol intake: current Alcohol intake frequency: holidays/special occasions only Alcohol type: beer, wine, hard liquor and other Patient Tobacco Use Status: Never used Tobacco Substance Use Frequency: Occasionally Have you been hit, kicked, punched, or otherwise hurt by someone within the past year? If so, by whom?: No Are you DNR?: No Advance Directives: No Advance Directives Information Provided: Yes Poor oral hygiene: No Meds Allergies Allergy/AdvReac Type Severity Reaction Status Date / Time No Known Allergies Allergy Verified 08/05/25 06:51 Home Medications ?Medication ?Instructions ?Recorded ?Confirmed ?Last Taken ?Type gabapentin 300 mg capsule 300 mg PO TID 07/13/2508/05 Unknown History amlodipine 5 mg tablet 10 mg PO DAILY 08/01/2507/25 Unknown History rosuvastatin 20 mg tablet (Crestor) 10 mg PO .once a w [place] 08/01/25 08/05/25 U nknown History valsartan 320 1 tab PO DAILY 08/03/2507/25 Unknown History mg-hydrochlorothiazide 12.5 mg tablet Exam Height,Weight and Vital Signs: Height 5 ft 9 in Weight 101.151 kg Documented by User: Padmini Lugo MD 08/05/25 07:16 [facility] Past Medical History Medical History Sleep apnea Postherpetic neuralgia Diabetes HTN (hypertension) Hyperlipidemia Tingling of upper extremity Family History Family History Father Heart attack Stented coronary artery Family history of problems with anesthesia: No Surgical History Surgical History History of foot surgery History of bilateral knee arthroplasty History of surgical removal of ganglion cyst Hx of shoulder surgery History of Problems with Anesthesia: No Social History Social History Are you a primary respiratory care instructor to a significant other at home: No Do you presently have visiting nurse or other home services: No Alcohol intake: current Alcohol intake frequency: holidays/special occasions only Alcohol type: beer, wine, hard liquor and other Patient Tobacco Use Status: Never used Tobacco Substance Use Frequency: Occasionally Have you been hit, kicked, punched, or otherwise hurt by someone within the past year? If so, by whom?: No Are you DNR?: No Advance Directives: No Advance Directives Information Provided: Yes Poor oral hygiene: No Meds Allergies Allergy/AdvReac Type Severity Reaction Status Date / Time No Known Allergies Allergy Verified 08/05/25 06:51 Home Medications ?Medication ?Instructions ?Recorded ?Confirmed ?Last Taken ?Type gabapentin 300 mg capsule 300 mg PO TID 07/13/2508/05 Unknown History amlodipine 5 mg tablet 10 mg PO DAILY 08/01/2507/25 Unknown History rosuvastatin 20 mg tablet (Crestor) 10 mg PO .once a w [place] 08/01/25 08/05/25 Unknown History valsartan 320 1 tab PO DAILY 08/03/2507/25 Unknown History mg-hydrochlorothiazide 12.5 mg tablet Exam Airway Mallampati Class: III TM Dist: >3cm Neck ROM: Full Heart: rrr Lungs: cta Assessment and Plan Assessment Anesthesia Assessment: Anesthesia Plan Discussed and Chart Reviewed Final Anesthetic Review Family History of Problems with Anesthesia: No History of Problems with Anesthesia: No NPO: No ASA Class: II Final Preanesthetic Review: No Changes in Pt Med Stat, Meds/Allgs Chart Reviewed and Consent Obtained/Reviewed Patient Risk: Low Procedure Risk: Low Anesthetic Plan Anesthetic Plan: MAC: Disposition: Standard PACU
[2025-08-05 06:35] VITALS: BMI 31.7
[2025-08-05] MEDS: Lactated Ringers 1,000 ML 100 ML IVCONT (06:40)
[2025-08-05 06:46] VITALS: BP 158/97; PULSE 100; RESP 18; TEMP 36.7; O2SAT 97
--- NOTE | 2025-08-05 07:27 | MHC.SHP ---
Pre-Procedural Eval Section A - 24 Hr Update-Section A only Date of Service: 08/05/25 Section B - Complete if H&P > 30 days Chief Complaint: screening Details of Present Illness: see H&P no changes Relevant Family History (Specify if Yes): No Relevant Social History: None Present Medications: see Short Stay Collaborative assessment History of Previous Operations: No relevant previous surgery Allergies: Allergies Allergy/AdvReac Type Severity Reaction Status Date / Time No Known Allergies Allergy Verified 08/05/25 06:51 Review of Systems Sugical H&P ROS: Negative: Constitution, Cardiovascular, Respiratory, Neurological, Psychiatric, Hem-Onc, Allergic/Immunologic, Gastrointestinal, Genitourinary, Musculoskeletal, Integumentary, Endocrine and Eyes/Ears/Nose/Throat Exam Surgical H&P Exam: Normal: HEENT, Normal: Heart, Normal: Lungs, Normal: Extremities, Normal: Abdomen, Normal: Skin and Normal: Neurological Plan Diagnosis/Plan: Unchanged I have reviewed the history and physical and performed a pertinent physical examination on my patient. No changes have occurred unless specified. Time Spent With Patient Time: Total time managing care of this patient today ____ minutes.
[2025-08-05 07:58] VITALS: BP 120/80; PULSE 98; RESP 19; TEMP 36.1; O2SAT 95
[2025-08-05 08:15] VITALS: BP 144/99; PULSE 91; RESP 18; TEMP 36.1; O2SAT 95
--- NOTE | 2025-08-05 08:39 | OP_ITS ---
DATE OF SERVICE: 08/05/2025 SURGEON: Cj Gross MD INDICATIONS: Colon cancer screening and prior history of colon polyps. PREOPERATIVE DIAGNOSIS: POSTOPERATIVE DIAGNOSIS: PROCEDURE PERFORMED: Colonoscopy to the terminal ileum. ESTIMATED BLOOD LOSS: COMPLICATIONS: ANESTHESIA: Monitored anesthesia care. ASSISTANTS: SPECIMENS: DESCRIPTION OF PROCEDURE: A history and physical was performed. The risks and benefits of the procedure were explained to the patient, and informed consent was obtained. The patient was placed in the left lateral decubitus position. A digital rectal exam was performed and was found to be normal. The Olympus pediatric video colonoscope was introduced into the rectum and advanced to the cecum. The cecum was identified by transillumination, palpation, and identification of the ileocecal valve. Examination was performed. The scope was removed. He tolerated the procedure well and was returned to the recovery area in stable condition. FINDINGS: The terminal ileum was examined and appeared normal. Visualized colonic mucosa was normal. The quality of the prep was good. No polyps were identified. Retroflexed examination showed small internal hemorrhoids. There was mild sigmoid diverticulosis. IMPRESSION: Normal colonoscopy. RECOMMENDATION: 1. Follow up as needed. 2. Repeat colonoscopy is recommended in 10 years for average-risk individuals. MD SHAKILA Mcnair/ASHLEY / [id number]
== END 2025-08-05 08:27 | disposition home or self-care (01) ==
PROVIDERS: PCP Internal Medicine; Visit Provider Internal Medicine Gastroenterology
PROC: 0DJD8ZZ Inspection of Lower Intestinal Tract, Via Natural or Artificial Opening Endoscopic (ICD-10-PCS; CPT 45378; principal; 2025-08-05 07:30)
DX: Z12.11 Encounter for screening for malignant neoplasm of colon (principal); K57.30 Diverticulosis of large intestine without perforation or abscess without bleeding; K64.8 Other hemorrhoids; Z86.0101 Personal history of adenomatous and serrated colon polyps; E11.9 Type 2 diabetes mellitus without complications; I10 Essential (primary) hypertension; E78.5 Hyperlipidemia, unspecified; G47.33 Obstructive sleep apnea (adult) (pediatric); Z99.89 Dependence on other enabling machines and devices; Z79.02 Long term (current) use of antithrombotics/antiplatelets; Z79.899 Other long term (current) drug therapy
CPT/HCPCS: G0105; J2003; J2704

== ENCOUNTER 2025-09-29 05:45 | Day surgery (SDC) | payer BC, SELFPAY ==
--- OUTSIDE RECORDS SUMMARY | 2025-02-17 03:00 | XMS_ITS ---
Author Organization Bernard Nieves MD Address [address] [place], [place] [phone] Care Team Providers Care Coordinate Measuring Machine Technician Name Role Phone Bernard Nieves Primary Care Provider [phone] Results Component Value Reference Range Notes Complete Blood Count Auto Di ff Reviewed date:02/17/2025 04:30:47 PM Interpretation: Performing Lab:[facility], [address] [place] [phone] Notes/Report: White Blood Count 8.7 4.8-10.8 X10*3/uL [...] NRBC Abs Auto 0.000 0.0-0.012 X10*3/uL Comprehensive [place]. Panel Fa st Reviewed date:02/17/2025 04:28:05 PM Interpretation: Performing Lab:[facility], [address] [place] [phone] Notes/Report: Sodium 136 135-145 mmol/L Potassium 4.6 [...] U/L Lipid Panel Reviewed date:02/24/2025 08:37:26 AM Interpretation[facility] Performing Lab:[facility], [address] [place] [phone] Notes/Report: Triglycerides 241 <150 mg/dL Desirable Triglyceride: [...] (Free>4and<10) Reviewed date:02/17/2025 04:28:29 PM Interpretation: Performing Lab:[address] [phone] Notes/Report: PSA,Total (Free>4and<10) 0.14 0.00-4.00 ng/mL A [...] Random Reviewed date:02/17/2025 04:30:18 PM Interpretation: Performing Lab:[address] [phone] Notes/Report: Creatinine Urine 105.51 Microalbumin Urine 7.0 Microalbum/Creatinine Ratio Ur 6.6 <30 ug/mg cr Albumin/Creatinine Ratio Reference Ranges: Normal: < 30 ug/mg creatinine Microalbuminuria: 30 - 300 ug/mg creatinine Clinical Albuminuria: > 300 ug/mg creatinine Hemoglobin A1c Reviewed date:02/17/2025 04:28:19 PM Interpretation: Performing Lab:[address] [phone] Notes/Report: Hemoglobin A1c % 7.4 <6.0 % [...] average glucose, using the formula of the Q5V-Yeiwzrc Average Glucose study (ADAG), Diabetes Care, Vol.31,#8, Jun. 2007 UA ClnCatch+Micro w/rflx Cul t Reviewed date:02/17/2025 04:37:22 PM Interpretation: Performing Lab:[facility], [address] [place] [phone] Notes/Report: Urine, Clean Catch Color Urine Yellow Appearance Urine Clear PH 5.5 5.0-9.0 Glucose Urine UA Negative Negative mg/dL Urine Blood Negative Negative Specific [place] - Urine 1.020 1.005-1.025 Urine Protein Negative [...] Location Date Provider Diagnosis Bernard Nieves MD [address] [place] [address] [address] [place], [place] [phone] 02/17/2025 Bernard Nieves Blood tests for rout [...] 09:00:00 AM, [address], [address], [place], [place], [phone], Provider Name:Bernard Parson ier, 02/20/2026 07:15:00 AM, [address], [address], [place], [place], [phone], Provider Name:Bernard Parson ier, 02/27/2026 08:30:00 AM, [address] [place] [address], Suite [facility], [place], [place], [phone], Progress Notes * ABEL WuDOB:1965 ([age] yo M)Acc No.[id number]:02/17/2025 Progress Note Patient: Wu WORLEY Provider: Jessy Nieves MD :1965 A ge:59 Y S ex:Male Date:02/17/2025 Address:[address] [place] [address] [id number] Subjective: * Chief Complaints: * 1 . [...] - 02/17/2025 07:00 AM) L AB: Comprehensive [place]. Panel Fast (Collection Date & Time - [...] - 02/17/2025 07:00 AM) L AB: Comprehensive [place]. Panel Fast (Collection Date & Time - [...] - 02/17/2025 07:00 AM) L AB: Comprehensive [place]. Panel Fast (Collection Date & Time - [...] - 02/17/2025 07:00 AM) L AB: Comprehensive [place]. Panel Fast (Collection Date & Time - [...] 02/17/2025 Generated for Ilia roberts/Samantha/Jasitting on: 0 08/10/2025 08:03 AM EDT
--- OUTSIDE RECORDS SUMMARY | 2025-02-24 04:00 | XMS_ITS ---
Author Organization Bernard Nieves MD Address [address] [place], [place] [phone] Care Team Providers Care Pipe And Boiler Covers Supervisor Name Role Phone Bernard Nieves Primary Care Provider Allergies Allergen (clinical drug ingredient) Drug/Non Drug [...] 01:47:48 PM > 3 MESSAGES LEFT BY [facility], I CALLED LEELA TO [...] will call to set up an appt, Zhui Xin 02/24 LIPIDS Medications Medication SIG (Take, Route, [...] Date Provider Diagnosis Bernard Nieves MD [address] [place], [place] [phone] 02/24/2025 Bernard Nieves Annual physical exam Z00.00 [...] Provider Name:Bernard Parson ier, 09/19/2025 09:00:00 AM, [address] [place] [address], [address], [place], [place], [phone], Provider Name:Bernard Parson ier, 02/20/2026 07:15:00 AM, [address] [place] [address], Suite [facility], [place], [place], [phone], Provider Name:Bernard Parson ier, 02/27/2026 08:30:00 AM, [address] [place] [address], [address], [place], [place], [phone], Progress Notes * Wu ROMANDOB:1965 ([age] yo M)Acc No.[id number]:02/24/2025 Progress Notes Patient: Wu WORLEY Provider: Jessy Nieves MD :1965 A ge:59 Y S ex:Male Date:02/24/2025 Address:[address] [place], [place] [phone] Subjective: * Chief Complaints: * A nnual [...] mg/dL Urine Blood Negative Negative - Specific [place] - Urine 1.020 1.005-1.025 - Urine Protein [...] Auto 0.000 0.0-0.012 - X10*3/uL L ab:Comprehensive [place]. Panel Fast (Order Date - 02/17/2025) (Collection [...] 02/24/2025 Generated for Ilia roberts/Samantha/Jasitting on: 0 08/10/2025 08:04 AM EDT History and Physical Notes * HPI [...]
--- OUTSIDE RECORDS SUMMARY | 2025-03-17 10:15 | XMS_ITS ---
Author Organization Bernard Nieves MD Address [address] [place], [place] [phone] Care Team Providers Care Photocopier Technician Name Role Phone Bernard Nieves Primary Care Provider [phone] Allergies Allergen (clinical drug ingredient) Drug/Non Drug [...] Location Date Provider Diagnosis Bernard Nieves MD [address] [place] [phone] 03/17/2025 Bernard Nieves Neuropathy G62.9 and Essential [...] Reason: Provider Name:Bernard miguel, 09/19/2025 09:00:00 AM, [address] [place] [address], [address], [phone], Provider Name:Bernard miguel, 02/20/2026 07:15:00 AM, [address] [place] [address], [address], [phone], Provider Name:Bernard miguel, 02/27/2026 08:30:00 AM, [address] [place] [address], [phone], Progress Notes * Wu ROMANDOB:1965 ([age] yo M)Acc No.[id number]:03/17/2025 Patient: Wu WORLEY Provider: Jessy Nieves MD :1965 A ge:60 Y S ex:Male Date:03/17/2025 Address:[address] [place], [place] [phone] Subjective: * Chief Complaints: * R EVIEW [...] MD Date: 0 03/17/2025 Generated for Ilia roberts/Samantha/eTransmitting on: 0 08/10/2025 08:03 AM EDT History and Physical Notes * [...]
--- OUTSIDE RECORDS SUMMARY | 2025-06-02 06:36 | XMS_ITS ---
Author Organization Bernard Nieves MD Address [address] [place] [address] [address] [place] [phone] Care Team Providers Care Wool Sacker Name Role Phone Bernard Nieves Primary Care Provider [phone] REASON FOR VISIT ins referral Encounters Encounter Location Date Provider Diagnosis Bernard Nieves MD [address] [place] [address] [place] [phone] 06/02/2025 Bernard Nieves Plan Of Treatment Next Appt Details Provider Name:Bernard Parson ier, 09/19/2025 09:00:00 AM, [address] [place] [address], [address] [place] [address], [phone], Provider Name:Bernard miguel, 02/20/2026 07:15:00 AM, [address] [place] [address], [address] [place] [address], [phone], Provider Name:Bernard Parson ier, 02/27/2026 08:30:00 AM, [address] [place] [address], [address] [place] [address], [phone], Progress Notes * Wu ROMANDOB:1965 ([age] yo M)Acc No.[id number]:06/02/2025 Patient: Wu WORLEY :1965 A ge:60 Y S ex:Male Address:[address] [place], [address] * true * Date: Generated for Printi ng/Faxing/eTransmitting on: 0 08/10/2025 08:03 AM EDT
--- OUTSIDE RECORDS SUMMARY | 2025-06-23 10:00 | XMS_ITS ---
Author Organization Bernard Nieves MD Address [address] [place], [place] [id number] Care Team Providers Care Marble Mechanic Helper Name Role Phone Bernard Nieves Primary Care [...] kg/m2 06/23/2025 weight is down 2 pounds [facility] e 03-17-25 Encounters Encounter Location Date Provider Diagnosis Bernard Nieves MD [address] [place] [address] [place] [phone] 06/23/2025 Bernard Nieves Type 2 diabetes mellitus [...] for use Umbilical hernia referral to dr bautista account development executive Referrals Referral Date Details 06/23/2025 06/23/2025, umbilica l hernia, Dave Mio Next Appt Details Follow Up: 3 Months, Reason: Provider Name:Bernard Parson ier, 09/19/2025 09:00:00 AM, [address], [address], [place], [place], [phone], Provider Name:Bernard Parson ier, 02/20/2026 07:15:00 AM, [address], [address], [place], [place], [phone], Provider Name:Bernard Parson ier, 02/27/2026 08:30:00 AM, [address] [place] [address] Drive, [address], [place], [place], [phone], Progress Notes * ALBINOWuDOB:1965 ([age] yo M)Acc No.[id number]:06/23/2025 Progress Notes Patient: Wu WORLEY Provider: Jessy Nieves MD :1965 A ge:60 Y S ex:Male Date:06/23/2025 Address:[address] [place] [address], [address] [id number] Subjective: * Chief Complaints: * 3 month [...] 2947 ASSAY, GLUCOSE, BLOOD QUANT, Modifiers: QW 51774 GLYCATED HEMOGLOBIN TEST, Modifiers: QW * Follow Up: 3 Months * * Sign off status: Completed true * Provider: Jessy Nieves MD Date: 0 06/23/2025 Generated for Ilia roberts/Samantha/Jasitting on: 0 08/10/2025 08:03 AM EDT History [...]
--- OUTSIDE RECORDS SUMMARY | 2025-08-05 03:30 | XMS_ITS ---
Author Organization [facility] Address [address] [place] [phone] Care Team Providers Care Cruise Consultant Name Role Phone Ezequiel MONACO, Bernard Primary Care Provider Cj Guajardo Jr REASON FOR VISIT screening Encounters Encounter Location Date Provider Diagnosis [facility] [address] [place] [id number] 08/05/2025 Cj Gross Jr Plan Of Treatment No Information Progress Notes * СЕРГЕЙ POSADA MDOB:1965 (60 yo M)Acc No.[id number]:08/05/2025 COLON WITH MAC Patient: Anurag SHELDONСЕРГЕЙ Goldman Mina Provider: Abelardo Gross MD :1965 A ge:60 Y S ex:Male Date:08/05/2025 Address:[address] [place], [place] [phone] Pcp:Bernard Nieves MD Subjective: * Chief Complaints: * 1 . Screening. * Medical History: Objective: * Vitals: Assessment: Plan: * Treatment: * * The named appointment provid er may or may not be the originator of this progress note, and it is not deemed complete until electronically signed by the appointment provider. Sign off status: Pending * Provider: Abelardo Gross MD Date: 08/05/2025 Generated for Printi ng/Faxing/eTransmitting on: 08/10/2025 08:03 AM EDT
--- OUTSIDE RECORDS SUMMARY | 2025-08-10 08:03 | XMS_ITS | Patient Health Record ---
Author Organization Bernard Nieves MD Address [address] [place], [place] [id number] Care Team Providers Care Diesel Pile Driver Operator Name Role Phone Bernard Nieves Primary [...] Gold Reviewed date:08/12/2024 12:21:42 PM Interpretation: Performing Lab:[facility], [address] [place] [phone] Notes/Report: Hold Gold See Note Specimen held untested for 24 hours; Call to request Chemistry testing. Liver Panel Reviewed date:08/12/2024 12:23:14 PM Interpretation: Performing Lab:[facility], [address] [place] [phone] Notes/Report: Bilirubin Total 0.7 0.0-1.0 mg/dL Bilirubin Direct 0.2 0.0-0.5 mg/dL Aspartate Amino Transferase 24 5-37 U/L Alanine Aminotransferase 42 0-40 U/L Total Protein 7.3 6.5-8.0 g/dL Albumin Level 4.6 3.5-5.0 g/dL Alkaline Phosphatase 56 39-117 U/L Glucose Fasting Reviewed date:08/12/2024 12:23:02 PM Interpretation: Performing Lab:[facility], [address] [place] [phone] Notes/Report: Glucose Fasting 171 60-99 mg/dL A fasting glucose of 126 mg/dl or greater on more than one occasion is considered diagnostic of diabetes. Lipid Panel with Reflex Reviewed date:08/12/2024 12:21:51 PM Interpretation: Performing Lab:[facility], [address] [place] [phone] Notes/Report: Triglycerides 192 <150 mg/dL Desirable Triglyceride: [...] A1c Reviewed date:08/12/2024 12:22:00 PM Interpretation: Performing Lab:[address] [phone] Notes/Report: Hemoglobin A1c % 6.6 <6.0 % [...] average glucose, using the formula of the U4I-Iwsenfy Average Glucose study (ADAG), Diabetes Care, Vol.31,#8, 2007 Glucose, finger stick Reviewed date:08/19/2024 07:36:10 AM Interpretation: Performing Lab: Notes/Report: Value 158 Complete Blood Count Auto Di ff Reviewed date:02/17/2025 04:30:47 PM Interpretation: Performing Lab:[facility], [address] [place] [phone] Notes/Report: White Blood Count 8.7 4.8-10.8 X10*3/uL [...] NRBC Abs Auto 0.000 0.0-0.012 X10*3/uL Comprehensive Pinckard. Panel Fa st Reviewed date:02/17/2025 04:28:05 PM Interpretation: Performing Lab:[facility], [address] [place] [phone] Notes/Report: Sodium 136 135-145 mmol/L Potassium 4.6 [...] U/L Lipid Panel Reviewed date:02/24/2025 08:37:26 AM Interpretation:[facility] LIPIDS 02/24 Performing Lab:[address] [phone] Notes/Report: Triglycerides 241 <150 mg/dL Desirable Triglyceride: [...] (Free>4and<10) Reviewed date:02/17/2025 04:28:29 PM Interpretation: Performing Lab:[address] [phone] Notes/Report: PSA,Total (Free>4and<10) 0.14 0.00-4.00 ng/mL A [...] Random Reviewed date:02/17/2025 04:30:18 PM Interpretation: Performing Lab:[address] [phone] Notes/Report: Creatinine Urine 105.51 Microalbumin Urine 7.0 Microalbum/Creatinine Ratio Ur 6.6 <30 ug/mg cr Albumin/Creatinine Ratio Reference Ranges: Normal: < 30 ug/mg creatinine Microalbuminuria: 30 - 300 ug/mg creatinine Clinical Albuminuria: > 300 ug/mg creatinine Hemoglobin A1c Reviewed date:02/17/2025 04:28:19 PM Interpretation: Performing Lab:[address] [phone] Notes/Report: Hemoglobin A1c % 7.4 <6.0 % [...] average glucose, using the formula of the B6C-Bugkzse Average Glucose study (ADAG), Diabetes Care, Vol.31,#8, Jun. 2007 UA ClnCatch+Micro w/rflx Cul t Reviewed date:02/17/2025 04:37:22 PM Interpretation: Performing Lab:[address] [phone] Notes/Report: Urine, Clean Catch Color Urine Yellow Appearance Urine Clear PH 5.5 5.0-9.0 Glucose Urine UA Negative Negative mg/dL Urine Blood Negative Negative Specific [place] - Urine 1.020 1.005-1.025 Urine Protein Negative [...] 01:47:48 PM > 3 MESSAGES LEFT BY [facility], I CALLED LEELA TO [...] Problem Status W/U Status Risk Notes Problem 077973510 Neuropathy (G62.9) Active confirmed Problem 78598393 Essential hypert ension (I10) Active confirmed Problem Prediabetes (842168200) Prediabetes (R73.09) Active confirmed Problem Postherpetic neuralgia (1257734) Post herpetic neuralgia (B02.29) Active confirmed Problem 71124935 Hypercholesterol emia (E78.00) Active confirmed Problem 84123670 FERNANDO (obstructive sleep apnea) (G47.33) Active confirmed Problem 792636178 Type 2 diabetes mellitus without complication, without [...] Location Date Provider Diagnosis Bernard Nieves MD [address] [place] [address] Drive [address] [place] [id number] 08/12/2024 Bernard Nieves Type 2 diabetes brooks itus without complication, without long-term current use of insulin E11.9 and Hypercholesterolemia E78.00 Bernard Nieves MD [address] [place] [address] Drive [address] [place] [id number] 02/17/2025 Bernard Nieves Blood tests for rout ine general physical examination Z00.00 ; Hypercholesterolemia E78.00 ; Essential hypertension I10 ; Prediabetes R73.09 and Type 2 diabetes mellitus without complication, without long-term current use of insulin E11.9 Bernard Nieves MD [address] [place] [id number] 08/19/2024 Bernard Nieves Prediabetes R73.09 ; History of asthma Z87.09 ; FERNANDO (obstructive sleep apnea) G47.33 ; Essential hypertension I10 ; Type 2 diabetes mellitus without complication, without long-term current use of insulin E11.9 ; Hypercholesterolemia E78.00 and Myalgia, multiple sites M79.18 Bernard Nieves MD [address] [id number] 02/24/2025 Bernard Nieves Annual physical exam Z00.00 ; Hypercholesterolemia E78.00 ; Post herpetic neuralgia B02.29 ; Essential hypertension I10 ; Type 2 diabetes mellitus without complication, without long-term current use of insulin E11.9 ; Abdominal pain R10.9 ; Colon cancer screening Z12.11 and Depression screening Z13.31 Bernard Nieves MD [address] [id number] 03/17/2025 Bernard Nieves Neuropathy G62.9 and Essential hypertension I10 Bernard Nieves MD [address] [place] [address] [address] [id number] 06/23/2025 Bernard Nieves Type 2 diabetes brooks itus without complication, without long-term current use of insulin E11.9 ; Post herpetic neuralgia B02.29 and Umbilical hernia K42.9 Bernard Nieves MD [address] [place] [id number] 06/02/2025 Bernard Nieves Assessments Encounter Date Diagnosis [...] Provider Name:Bernard Parson ier, 09/19/2025 09:00:00 AM, [address] [place] [address], [address], [place], [place], [phone], Provider Name:Bernard miguel, 02/20/2026 07:15:00 AM, [address] [place] [address], [address], [place], [place], [phone], Provider Name:Bernard clayr, 02/27/2026 08:30:00 AM, [address] [place] [address], [address], [place], [place], [phone], Insurance Providers Payer Name Payer Address Payer Phone Subscriber Number Group Number Insured Name Patient Relationship to Insured Coverage Start Date Coverage End Date [employer] [address] [place], [place] [phone] [id number] Wu Roman Self - patient is the insured Medical (General) History Medical History History ICD Code sunsensitivity to thiazides cologuard 2021
--- OUTSIDE RECORDS SUMMARY | 2025-08-10 08:04 | XMS_ITS | Patient Health Record ---
Author Organization [facility] Address [address] [place] [address] Care Team Providers Care Senior Operations Analyst Name Role Phone Bernard Nieves MD Primary Care Provider Cj Guajardo Jr Unavailable Reason For Referral Referring Provider First Name Bernard Referring Provider Last Name Ezequiel Referring Provider Speciality Internal M edicine Referred Organization [facility] Referred Provider Cj Gross Jr Referred Address [address],[place], [place],[address],[place] Referred Provider Specialty Gastroentero logy General Notes Nadia Felder 2024 08:31:32 AM >call Dr. Nieves's office to request an [facility] blue referral for visit with Dr. Gross [...] Problem Screening for malignant neoplasm of colon (707211761) Encounter for screening for malignant neoplasm of colon (Z12.11) Active confirmed Problem Pre-procedure evaluation check (532100678) Preoperative examination (Z01.818) Active confirmed Vital Signs Temperature 98.2 degrees Fahrenheit 06/20/2025 Blood pressure diastolic 01 mm Hg 06/20/2025 Height 69 in 06/20/2025 Blood pressure systolic 001 mm Hg 06/20/2025 Weight 223 lbs 06/20/2025 BMI 32.93 kg/m2 06/20/2025 Encounters Encounter Location Date Provider Diagnosis [facility] Out[facility] [address] [place] [id number] 08/05/2025 Cj [facility] [address] [place] [address] 06/20/2025 Cj Gross Jr Encounter for screening [...] Test Test Name Order Date COLONOSCOPY 06/20/2025 Insurance Providers Payer Name Payer Address Payer Phone Subscriber Number Group Number Insured Name Patient Relationship to Insured Coverage Start Date Coverage End Date [facility] [employer] [address] [place] [address] [id number] СЕРГЕЙ POSADA Self - patient is the insured Medical (General) History Medical History History ICD Code Hypertension Diabetes type 2, borderline Postherpetic neuralgia FERNANDO/CPAP
[2025-09-27 10:33] VITALS: BMI 32.5
[2025-09-29] VITALS (7 sets, daily range): BP systolic 110–161; BP diastolic 75–102; PULSE 92–111; RESP 16–18; TEMP 36.1–36.4; O2SAT 95–98; BMI 31.0
[2025-09-29] MEDS: Lactated Ringers 1,000 ML 100 ML IVCONT (06:49)
--- NOTE | 2025-09-29 07:20 | HO.ANESPROP2 ---
Documented by User: Vianney Espinoza NP 09/27/25 10:09 HPI - Anesthesia Eval Consult details Narrative: 60yo M for Repair Hernia Umbilical Reducible with mesh s/p colo 07/2025 DM - no rx PMFSH Active Problems Active Problems: All Active Problems Umbilical hernia (Acute) Herpes zoster (Acute) Traumatic spondylopathy of thoracic region (Acute) Sprain of ligament of cervicothoracic region of spine (Acute) Hyperlipidemia (Acute) Tingling of upper extremity (Acute) Past Medical History Medical History Sleep apnea Postherpetic neuralgia Diabetes HTN (hypertension) Hyperlipidemia Tingling of upper extremity Family History Family History Father Heart attack Stented coronary artery Family history of problems with anesthesia: No Surgical History Surgical History (Updated 09/29/25 @ 06:18 by Alondra Eason RN) Hx of colonoscopy (08/05/25) History of foot surgery History of bilateral knee arthroplasty History of surgical removal of ganglion cyst Hx of shoulder surgery History of Problems with Anesthesia: No Social History Social History Are you a primary health care facilities inspector to a significant other at home: No Do you presently have visiting nurse or other home services: No Alcohol intake: current Alcohol intake frequency: holidays/special occasions only Alcohol type: beer, wine, hard liquor and other Patient Tobacco Use Status: Current someday Tobacco user Tobacco use type: Cigar Use of substances other than those prescribed or required for medical reasons: Yes Substance Use Type Other:: gummies Are you DNR?: No Advance Directives: No Advance Directives Information Provided: Yes Meds Allergies Allergy/AdvReac Type Severity Reaction Status Date / Time No Known Allergies Allergy Verified 08/05/25 06:51 Home Medications ?Medication ?Instructions ?Recorded ?Confirmed ?Last Taken ?Type gabapentin 300 mg capsule 300 mg PO TID 07/13/25 09/27/25 Unknown History amlodipine 5 mg tablet 10 mg PO BEDTIME 08/01/25 09/29/25 Unknown History rosuvastatin 20 mg tablet (Crestor) 10 mg PO .once a week 08/01/25 09/27/25 Unknown History valsartan 320 1 tab PO DAILY 08/03/25 09/27/25 Unknown History mg-hydrochlorothiazide 12.5 mg tablet Assessment and Plan Assessment Anesthesia Assessment: Chart Reviewed Final Anesthetic Review Family History of Problems with Anesthesia: No History of Problems with Anesthesia: No Documented by User: Holly Stevenson DO 09/29/25 07:41 HPI - Anesthesia Eval Consult details Narrative: 60yo M for Repair Hernia Umbilical Reducible with mesh s/p colo 07/2025 DM - no rx PONV PMFSH Past Medical History Medical History Sleep apnea Postherpetic neuralgia Diabetes HTN (hypertension) Hyperlipidemia Tingling of upper extremity Family History Family History Father Heart attack Stented coronary artery Family history of problems with anesthesia: No Surgical History Surgical History (Updated 09/29/25 @ 06:18 by Alondra Eason RN) Hx of colonoscopy (08/05/25) History of foot surgery History of bilateral knee arthroplasty History of surgical removal of ganglion cyst Hx of shoulder surgery History of Problems with Anesthesia: Yes (PONV) Social History Social History Are you a primary health care facilities inspector to a significant other at home: No Do you presently have visiting nurse or other home services: No Alcohol intake: current Alcohol intake frequency: holidays/special occasions only Alcohol type: beer, wine, hard liquor and other Patient Tobacco Use Status: Current someday Tobacco user Tobacco use type: Cigar Use of substances other than those prescribed or required for medical reasons: Yes Substance Use Type Other:: gummies Are you DNR?: No Advance Directives: No Advance Directives Information Provided: Yes Meds Allergies Allergy/AdvReac Type Severity Reaction Status Date / Time No Known Allergies Allergy Verified 08/05/25 06:51 Home Medications ?Medication ?Instructions ?Recorded ?Confirmed ?Last Taken ?Type gabapentin 300 mg capsule 300 mg PO TID 07/13/25 09/27/25 Unknown History amlodipine 5 mg tablet 10 mg PO BEDTIME 08/01/25 09/29/25 Unknown History rosuvastatin 20 mg tablet (Crestor) 10 mg PO .once a week 08/01/25 09/27/25 Unknown History valsartan 320 1 tab PO DAILY 08/03/25 09/27/25 Unknown History mg-hydrochlorothiazide 12.5 mg tablet Exam Exam Date and Time: 09/29/25 0715 Height,Weight and Vital Signs: Height 5 ft 9 in Weight 95.2 kg Vital Signs Temperature 97.1 F 09/29/25 06:21 Pulse Rate 93 09/29/25 06:21 Respiratory Rate 16 09/29/25 06:21 Blood Pressure 161/102 H 09/29/25 06:21 Pulse Oximetry 98 09/29/25 06:21 Oxygen Delivery Method Room Air 09/29/25 06:21 Temperature 97.1 F 09/29/25 06:21 Pulse Rate 93 09/29/25 06:21 Respiratory Rate 16 09/29/25 06:21 Blood Pressure 161/102 H 09/29/25 06:21 Pulse Oximetry 98 09/29/25 06:21 Oxygen Delivery Method Room Air 09/29/25 06:21 Airway Mallampati Class: II TM Dist: <=3cm Neck ROM: Full Loose/Missing/Broken Teeth: No (patient denies any loose or broken teeth) Heart: S1S2 Lungs: CTAB Assessment and Plan Assessment Anesthesia Assessment: Anesthesia Plan Discussed and Chart Reviewed Final Anesthetic Review Family History of Problems with Anesthesia: No History of Problems with Anesthesia: Yes (PONV) NPO: Yes ASA Class: II Final Preanesthetic Review: No Changes in Pt Med Stat, Meds/Allgs Chart Reviewed, Consent Obtained/Reviewed and Anes Risks/Benef Reviewed Patient Risk: Low Procedure Risk: Low Anesthetic Plan Anesthetic Plan: GA and Agree w/ Assess. and Plan Disposition: Standard PACU
--- NOTE | 2025-09-29 07:27 | MHC.SHP ---
Pre-Procedural Eval Section A - 24 Hr Update-Section A only Date of Service: 09/29/25 The patient is an INPATIENT: No Changes since office visit: Yes Patient answered all questions; No Cold of Flu in the past 2 weeks, No New Medical Problems and No Changes in Medication The patient has been examined within 24 hours of the surgical procedure. The History & Physical has been completed within 30 days and I have reviewed it.: No Section B - Complete if H&P > 30 days Chief Complaint: Umbilical hernia without obstruction or gangrene Details of Present Illness: No change in symptoms. Relevant Family History (Specify if Yes): No Relevant Social History: None Present Medications: see Short Stay Collaborative assessment Medical History: No relevant PMH History of Previous Operations: No relevant previous surgery Allergies: Allergies Allergy/AdvReac Type Severity Reaction Status Date / Time No Known Allergies Allergy Verified 08/05/25 06:51 Review of Systems Sugical H&P ROS: Negative: Constitution, Cardiovascular, Respiratory, Neurological, Psychiatric, Hem-Onc, Allergic/Immunologic, Gastrointestinal, Genitourinary, Musculoskeletal, Integumentary, Endocrine and Eyes/Ears/Nose/Throat Exam Surgical H&P Exam: Normal: HEENT, Normal: Heart, Normal: Lungs, Normal: Extremities, Normal: Abdomen, Normal: Skin and Normal: Neurological Plan Diagnosis/Plan: Unchanged I have reviewed the history and physical and performed a pertinent physical examination on my patient. No changes have occurred unless specified. Time Spent With Patient Time: Total time managing care of this patient today ____ minutes.
--- NOTE | 2025-09-29 08:20 | P.OP_ITS ---
Operative Note Operative Note Date of Service: 09/29/25 Narrative: Preoperative diagnosis: Umbilical and ventral hernia, reducible, 4 cm total Postoperative diagnosis: Same Procedure: Repair of umbilical and ventral hernia with mesh Surgeon: Benji Pablo MD Manual Training Teacher: Bianca Agarwal PA-C; Wu Black PA-C Anesthesia: General LMA Indications for procedure: 60-year-old male patient presenting with a palpable lump located in the umbilicus with a 2nd opening located slightly higher for total measurement of 4 cm hernia. The hernias noted to be reducible with slight discomfort with palpation. Operative findings: Umbilical and ventral hernia, reducible, 4 cm Specimen: None Estimated blood loss: 2 mL Complications: None Procedure details: Patient was brought to the OR and placed in a supine position. After administering general anesthesia the patient's abdomen was prepped with ChloraPrep and draped in a sterile fashion. A surgical time-out was called the consent confirmed. Patient received preoperative antibiotics and Venodyne boots were in place. Local anesthesia consisting of 0.5% Sensorcaine was placed in a midline position around the umbilicus over the palpable hernia above the umbilicus as well. A midline incision was created to include a portion of the umbilicus, created in a curvilinear fashion. Incision was carried out through subcutaneous tissue up to the hernia sacs. The umbilical skin was dissected off the hernia sac using electrocautery. A 2nd ventral hernia was noted slightly higher and was dissected free. Fascial edges were further defined using electrocautery. Contents were then reduced to the abdominal cavity. Preperitoneal space was further dissected to combine the 2 openings. Defect measured approximately 4 cm. A 6.4 cm Ventralex mesh was then obtained. This was placed into the preperitoneal space and secured in 4 quadrants using a 1 Tycron suture. Fascia was then closed over the mesh using [id number] 1 Tycron sutures. Approximately 4 mL of Zenrelef was instilled below the fascia for postop pain relief prior to complete closure of the fascia. Wounds were then irrigated with saline solution and suctioned dry. Local skin was reattached to the fascia using a 3-0 Polysorb suture. Subcutaneous tissue and dermis were then reapproximated using interrupted 3-0 Polysorb sutures. Skin was then closed using a running subcuticular 4-0 Polysorb suture. Steri- Strips, 4 x 4 gauze and Tegaderm were then applied. The patient tolerated the procedure well. Sponge, instrument, and needle counts reported as correct. The patient was transferred to PACU in stable condition.
== END 2025-09-29 09:30 | disposition home or self-care (01) ==
PROVIDERS: PCP Internal Medicine; Visit Provider Surgery
PROC: (CPT 49593; principal; 2025-09-29 07:30)
DX: K42.9 Umbilical hernia without obstruction or gangrene (principal); K43.9 Ventral hernia without obstruction or gangrene; E78.5 Hyperlipidemia, unspecified; R20.0 Anesthesia of skin; G47.33 Obstructive sleep apnea (adult) (pediatric); Z79.899 Other long term (current) drug therapy
CPT/HCPCS: 49593; C1781; J0131; J0668; J0690; J1885; J2003; J2704; J3010

== ENCOUNTER → 2025-09-29 05:45 | Outpatient (BNV) | payer BC, SELFPAY | PROVIDERS: PCP Internal Medicine; Visit Provider Surgery | DX: K42.9 Umbilical hernia without obstruction or gangrene (principal); K43.9 Ventral hernia without obstruction or gangrene | CPT/HCPCS: 49593 ==

== ENCOUNTER 2025-10-10 09:10 | Outpatient (AMB) | payer BC, SELFPAY ==
--- NOTE | 2025-10-10 09:18 | A.OFFVIS_ITS ---
Vital Signs 10/10/25 09:25 Height 5 ft 9 in Weight 211 lb BMI 31.2 BP 171/90 H Blood Pressure Location Lt brachial Position Sitting Pulse 85 Intake Visit Reasons: s/p umbilical hernia w/mesh Intake Note: Patient is seen in office for post op assessment post repair of umbilical and ventral hernia with mesh. 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 Eating well. Regular BMs. Denies nausea, vomiting. has been avoiding heavy lifting. [facility] Medical History Sleep apnea Postherpetic neuralgia Diabetes HTN (hypertension) Hyperlipidemia Tingling of upper extremity Surgical History (Updated 10/11/25 @ 09:02 by Wu Black PA-C) Hx of umbilical hernia repair (09/29/25) Hx of colonoscopy (08/05/25) History of foot surgery History of bilateral knee arthroplasty History of surgical removal of ganglion cyst Hx of shoulder surgery Family History Father Heart attack Stented coronary artery Social History Are you a primary body care manager to a significant other at home: No Do you presently have visiting nurse or other home services: No Alcohol intake: current Alcohol intake frequency: holidays/special occasions only Alcohol type: beer, wine, hard liquor and other Patient Tobacco Use Status: Current someday Tobacco user Tobacco use type: Cigar Review of Systems Const All systems reviewed & are unremarkable except as noted in HPI and below Physical Exam Vital Signs: Last Vital Signs Pulse 85 10/10/25 09:25 BP 171/90 H 10/10/25 09:25 BMI result Body Mass Index 31.2 Const General: comfortable and no acute distress Orientation/consciousness: patient oriented x3 Resp Effort & Inspection: normal respiratory effort and able to speak in complete sentences GI Other: very small amount of fluctuance at the umbillicus, no erythema, mild pain. no drainage incision site intact, dry Inspection: No distended Palpation (GI): Soft to palpation and Tenderness to palpation present (GI) (mild at incision) Neuro General: patient oriented x3 Assessment & Plan Assessment & Plan (1) Hx of umbilical hernia repair: Onset Date: 09/29/25 Comment: and ventral hernia with mesh- Basilio Pablo MD Code(s): Z98.890 - Other specified postprocedural states; Z87.19 - Personal history of other diseases of the digestive system Category: Medical Plan 52-year-old male s/p umbilical and ventral hernia repair with Dr. Pablo on 09/29/25 returning for routine follow up. Overall patient doing well. Denies significant pain. Some occasional pain with ambulation. Only concern is a small lump around the belly button. Otherwise tolerating diet, bowel function at baseline. Denying fevers or chills at home. Has been tolerating gentle ambulation. He appears to be doing well. On exam his abdomen is soft and benign, incision site appears to be healing well, no concern for infection at this time. There was a small area of fluctuance which likely represents a seroma deep to the incision, at this time is very small and we will likely be reabsorbed with time. They did recommend using warm compress to 3 times a day to help expedite this process. There were no surrounding skin changes suggestive of infection. We will continue with activity restrictions no heavy lifting greater than 15-20 lb for a total of 6 weeks. Patient will follow up in 2-3 weeks for routine follow up, can return sooner with any questions or concerns prior Coding Level of Care Code Est Pt Level 4 (92915) Diagnoses Hx of umbilical hernia repair Z98.890; Z87.19
[2025-10-10 09:25] VITALS: BP 171/90; PULSE 85; BMI 31.2
== END 2025-10-10 09:45 | disposition home or self-care (01) ==
LOC: HO.HGS 09:10
PROVIDERS: PCP Internal Medicine
DX: Z98.890 Other specified postprocedural states (principal); Z87.19 Personal history of other diseases of the digestive system
CPT/HCPCS: 99214

== ENCOUNTER 2025-10-25 13:19 | Outpatient (AMB) | payer BC, SELFPAY ==
--- NOTE | 2025-10-25 13:21 | A.OFFVIS_ITS ---
Vital Signs 10/25/25 13:26 Height 5 ft 9 in Weight 212 lb 2 oz BMI 31.3 Intake Visit Reasons: 2 week follow up s/p umbilical hernia w/mesh Intake Note: Patient presents for two week follow-up status post umbilical hernia repair with mesh. Pt c/o; no complaints at this time. 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 Continues to get some pain late in the day at the incision site especially when he has been up on his feet all day. Additionally long periods of sitting also cause him discomfort. Feels like the small fluid collection seen at last visit has improved. Denies fevers chills. Bowel function, appetite at baseline PFSH Medical History Sleep apnea Postherpetic neuralgia Diabetes HTN (hypertension) Hyperlipidemia Tingling of upper extremity Surgical History Hx of umbilical hernia repair (09/29/25) Hx of colonoscopy (08/05/25) History of foot surgery History of bilateral knee arthroplasty History of surgical removal of ganglion cyst Hx of shoulder surgery Family History Father Heart attack Stented coronary artery Social History Are you a primary care coordinator to a significant other at home: No Do you presently have visiting nurse or other home services: No Alcohol intake: current Alcohol intake frequency: holidays/special occasions only Alcohol type: beer, wine, hard liquor and other Patient Tobacco Use Status: Current someday Tobacco user Tobacco use type: Cigar Review of Systems Const All systems reviewed & are unremarkable except as noted in HPI and below Physical Exam Vital Signs: BMI result Body Mass Index 31.3 Const General: comfortable and no acute distress Orientation/consciousness: patient oriented x3 GI Other: Umbilical hernia repair site: Well healed incision. Previous fluid collection resolved. No surrounding erythema. Mildly tender to palpation. No recurrence with Valsalva Neuro General: patient oriented x3 Assessment & Plan Assessment & Plan (1) Hx of umbilical hernia repair: Onset Date: 09/29/25 Comment: and ventral hernia with mesh- Basilio Pablo MD Code(s): Z98.890 - Other specified postprocedural states; Z87.19 - Personal history of other diseases of the digestive system Category: Surgical Plan 52-year-old male s/p umbilical and ventral hernia repair with Dr. Pablo on 09/29/25 returning for routine follow up. Overall patient doing well. Denies significant pain. Some occasional pain at the end of the day when he has been on his feet for work, also with periods of prolonged sitting. The small lump around the belly button is resolving. He continues to do warm compresses. Otherwise tolerating diet, bowel function at baseline. Denying fevers or chills at home. He appears to be doing well. On exam his abdomen is soft and benign, incision site appears to be healing well, no concern for infection at this time. The small area of fluid collection seen at last visit is nearly completely resolved. No surrounding erythema, no drainage from the incision site. I had the patient perform Valsalva and was unable to appreciate recurrence. . We will continue with activity restrictions no heavy lifting greater than 15-20 lb until November 07, he agrees to this plan. No longer requiring follow up, can follow up as needed with any concerns in the future. Coding Level of Care Code Est Pt Level 4 (50554) Diagnoses Hx of umbilical hernia repair Z98.890; Z87.19 Time Spent (min) 35
[2025-10-25 13:26] VITALS: BMI 31.3
== END 2025-10-25 13:48 | disposition home or self-care (01) ==
LOC: HO.HGS 13:19
PROVIDERS: PCP Internal Medicine
DX: Z98.890 Other specified postprocedural states (principal); Z87.19 Personal history of other diseases of the digestive system
CPT/HCPCS: 99214

== ENCOUNTER 2025-11-02 14:45 | Outpatient (AMB) | payer BC, SELFPAY ==
--- OUTSIDE RECORDS SUMMARY | 2024-08-12 02:00 | XMS_ITS ---
Author Organization Bernard Nieves MD Address [address] [place] [id number] Care Team Providers Care Inside Sales Specialist Name Role Phone Bernard Nieves Primary Care Provider Results Component Value Reference Range Notes Liver Panel Reviewed date:08/12/2024 12:23:14 PM Interpretation: Performing Lab:[facility], [address] [place] [phone] Notes/Report: Bilirubin Total 0.7 0.0-1.0 mg/dL Bilirubin Direct 0.2 0.0-0.5 mg/dL Aspartate Amino Transferase 24 5-37 U/L Alanine Aminotransferase 42 0-40 U/L Total Protein 7.3 6.5-8.0 g/dL Albumin Level 4.6 3.5-5.0 g/dL Alkaline Phosphatase 56 39-117 U/L Glucose Fasting Reviewed date:08/12/2024 12:23:02 PM Interpretation: Performing Lab:[facility], [address] [place] [phone] Notes/Report: Glucose Fasting 171 60-99 mg/dL A fasting glucose of 126 mg/dl or greater on more than one occasion is considered diagnostic of diabetes. Lipid Panel with Reflex Reviewed date:08/12/2024 12:21:51 PM Interpretation: Performing Lab:[facility], [address] [place] [phone] Notes/Report: Triglycerides 192 <150 mg/dL Desirable Triglyceride: less than 150 mg/dL Borderline High Triglyceride 150-199 mg/dL High Triglyceride: 200-499 mg/dL Very High Triglyceride: greater than or equal to 5OO mg/dL Cholesterol 201 <200 mg/dL Desirable Cholesterol: less than 200 mg/dL Borderline High Cholesterol: 200-239 mg/dL High Cholesterol: greater than 239 mg/dL LDL Cholesterol Calculated 116 <100 mg/dL Desirable LDL: less than 100 mg/dL Near Optimal/Above Optimal LDL: 110-129 mg/dL Borderline High LDL: 130-159 mg/dL High LDL: 160-189 mg/dL Very High LDL: greater than or equal to 190 mg/dL HDL Cholesterol 47 >40 mg/dL Desirable HDL: greater than 40 mg/dL Note: This HDL assay may give artificially low results in patients with liver disease. Hemoglobin A1c Reviewed date:08/12/2024 12:22:00 PM Interpretation: Performing Lab:[facility], [address] [place] [phone] Notes/Report: Hemoglobin A1c % 6.6 <6.0 % Hemoglobin A1C Reference Range Adults: 4.8 - 6.0 % Non diabetic: < 6.0 % Goal: < 7.0 % Additional Action Suggested: > 8.0 % Note: Hemoglobin A1c results are invalid for patients with abnormal amounts of HbF. Blood transfusions may impact the HbA1c concentration in the patient sample. Estimated Average Glucose 143 eAG = Estimated average glucose which is %A1C expressed as average glucose, using the formula of the D6O-Jycioav Average Glucose study (ADAG), Diabetes Care, Vol.31,#8, Jun. 2007 REASON FOR VISIT lipids Encounters Encounter Location Date Provider Diagnosis Bernard Nieves MD [address] [place] [address] [place] [phone] 08/12/2024 Bernard Nieves Type 2 diabetes brooks itus without complication, without long-term current use of insulin E11.9 and Hypercholesterolemia E78.00 Assessments Encounter Date Diagnosis (ICD Code) Assessment Notes Treatment Notes Treatment Clinical Notes Section Notes 08/12/2024 Type 2 diabetes brooks itus without complication, without long-term current use of insulin (ICD-10 - E11.9) 08/12/2024 Hypercholesterolemia (ICD-10 - E78.00) Plan Of Treatment Next Appt Details Provider Name:Bernard miguel, 02/20/2026 07:15:00 AM, [address] [place] [address], [address], [place], [place], [phone], Provider Name:Bernard Parson ier, 02/27/2026 08:30:00 AM, [address], [address], [place], [place], [phone], Progress Notes * Wu ROMANDOB:1965 ([age] yo M)Acc No.[id number]:08/12/2024 Progress Note Patient: Wu WORLEY Provider: Jessy Nieves MD :1965 A ge:59 Y S ex:Male Date:08/12/2024 Address:[address] [place], [place] [phone] Subjective: * Chief Complaints: * 1 . Lipids. * Medical History: Objective: * Vitals: Assessment: * Assessment: 1. T ype 2 diabetes mellitus without complication, without long-term current use of insulin - E11.9 (Primary) 2 . H ypercholesterolemia - E78.00 Plan: * Treatment: 2. H ypercholesterolemia L AB: Liver Panel (Collection Date & Time - 08/12/2024 07:00 AM) L AB: Glucose Fasting (Collection Date & Time - 08/12/2024 07:00 AM) L AB: Lipid Panel with Reflex (Collection Date & Time - 08/12/2024 07:00 AM) L AB: Hemoglobin A1c (Collection Date & Time - 08/12/2024 07:00 AM) * Procedure Codes: 3 6415 VENIPUNCT, ROUTINE* * * The named appointment provid er may or may not be the originator of this progress note, and it is not deemed complete until electronically signed by the appointment provider. Sign off status: Pending * Provider: Jessy Nieves MD Date: 0 08/12/2024 Generated for Ilia roberts/Samantha/Kacismitting on: 1 01/03/2025 11:08 PM EST
--- OUTSIDE RECORDS SUMMARY | 2024-08-19 02:45 | XMS_ITS ---
Author Organization Bernard Nieves MD Address [address] [place], [place] [id number] Care Team Providers Care Sr. Pricing Analyst Name Role Phone Bernard Nieves Primary Care Provider [phone] Allergies Allergen (clinical drug ingredient) Drug/Non Drug Allergy documented on EMR Reaction Allergy Type Onset Date Status Medicinal product containing thiazide and acting as diuretic agent (product) Thiazide-Type Diuretics sun sensitivity Drug Allergy Active Results Component Value Reference Range Notes Hemoglobin A1c Reviewed date:08/19/2024 07:43:00 AM Interpretation: Performing Lab: Notes/Report: Hemoglobin A1c 6.8 Glucose, finger stick Reviewed date:08/19/2024 07:36:10 AM Interpretation: Performing Lab: Notes/Report: Value 158 REASON FOR VISIT 6 month, c/o cough x 1 month post nasal drip Covid tests x 6 all negative Medications Medication SIG (Take, Route, Frequency, Duration) Notes Start Date End Date Status amLODIPine Besylate 5 MG TAKE ONE TABLET BY MOUTH EVERY DAY Active CeleBREX 200 MG 1 capsule with food Orally Once a day for 30 day(s) Not-Taking Albuterol Sulfate HFA 108 (90 Base) MCG/ACT 1 puff as needed Inhalation every 4 hrs for 30 days 08/19/2024 Active traMADol HCl 50 MG 1 or 2 tabs Orally 3 times a day for 10 days 01/14/2023 Not-Taki ng Fluticasone Propionate 50 MCG/ACT 1 spray in each nostril Nasally Once a day for 30 day(s) 02/19/2024 Active Gabapentin 400 MG 1 capsule Orally 3 times a day for 30 days 05/19/2023 Not-Taki ng Valsartan 320 MG TAKE ONE TABLET BY MOUTH EVERY DAY Active Vital Signs Blood pressure systolic 122 mm Hg 08/19/20 24 Blood pressure diastolic 80 mm Hg 024 Height 68 in 08/19/2024 Weight 220 lbs 08/19/2024 BMI 33.45 kg/m2 08/19/2024 Encounters Encounter Location Date Provider Diagnosis Bernard Nieves MD [address] [place] [address] [address] [place], [place] [phone] 08/19/2024 Bernard Nieves Prediabetes R73.09 ; History of asthma Z87.09 ; FERNANDO (obstructive sleep apnea) G47.33 ; Essential hypertension I10 ; Type 2 diabetes mellitus without complication, without long-term current use of insulin E11.9 ; Hypercholesterolemia E78.00 and Myalgia, multiple sites M79.18 Assessments Encounter Date Diagnosis (ICD Code) Assessment Notes Treatment Notes Treatment Clinical Notes Section Notes 08/19/2024 Prediabetes (ICD-10 - R73.09) doing well, no need for medication at this time, will continue to monitor 08/19/2024 History of asthma (ICD-10 - Z87.09) 08/19/2024 FERNANDO (obstructive sle ep apnea) (ICD-10 - G47.33) can't use machine due to coughing 08/19/2024 Essential hypertensi on (ICD-10 - I10) well controlled, at goal, will cntinue current regiment 08/19/2024 Type 2 diabetes brooks itus without complication, without long-term current use of insulin (ICD-10 - E11.9) doing well 08/19/2024 Hypercholesterolemia (ICD-10 - E78.00) can't take statins 08/19/2024 Myalgia, multiple si vivien (ICD-10 - M79.18) had to stop statin due to pain. this went away Plan Of Treatment Medication Medication Name Sig Start Date Stop Date Notes amLODIPine Besylate 5 MG TAKE ONE TABLET BY MOUTH EVERY DAY Rosuvastatin Calcium 40 MG 1 tablet Orally Once a day 04/25 Albuterol Sulfate HFA 108 (9 0 Base) MCG/ACT 1 puff as needed Inhalation every 4 hrs for 30 days 08/19/2024 Valsartan 320 MG TAKE ONE TABLET BY M OUTH EVERY DAY Treatment Notes Assessment Notes Prediabetes doing well, no need for medication at this time, will continue to monitor FERNANDO (obstructive sleep apnea) can't use machine due to coughing Essential hypertension well controlled, at goal, will cntinue current regiment Type 2 diabetes mellitus wit hout complication, without long-term current use of insulin doing well Hypercholesterolemia can't take statins Myalgia, multiple sites had to stop stat in due to pain. this went away Next Appt Details Provider Name:Bernard Parson ier, 02/20/2026 07:15:00 AM, [address] [facility], [address], [place], [place], [phone], Provider Name:Bernard Parson ier, 02/27/2026 08:30:00 AM, [address] [facility], [address], [place], [place], [phone], Progress Notes * Wu ROMANDOB:1965 ([age] yo M)Acc No.[id number]:08/19/2024 Progress Notes Patient: Anurag hamilton Wu Provider: Jessy Nieves MD :1965 A ge:59 Y S ex:Male Date:08/19/2024 Address:[address] [place] [address] [id number] Subjective: * Chief Complaints: * 6 monthc/o cough x 1 month post nasal drip Covid tests x 6 all negative * HPI: S ymptom(s): patient is a 59 yo male here for 6 month follow up visit, had asthma when he was younger.complaining of cough for one month with post nasal drip, covid tests x 6 all negative. * ROS: G eneral/Constitutional: Denies C hills. D enies F atigue. D enies F ever. D enies H eadache. E NT: Patient denies d ecreased sense of smell , any loss of taste , sore throat. P atient complaining of c /o post nasal drip. D enies S ore throat.? R espiratory: Admits C ough. D enies S hortness of breath at rest. D enies S hortness of breath with exertion. G astrointestinal: Denies D iarrhea. D enies N ausea. M usculoskeletal: Patient denies m uscle aches. P eripheral Vascular: Patient denies r ed and blue toes. * Medical History: * Surgical History: * Hospitalization/Major Diagno stic Procedure: * Medications: T akingFluticasone Propionate 50 MCG/ACT Suspension 1 spray in each nostril Nasally Once a dayValsartan 320 MG Tablet TAKE ONE TABLET BY MOUTH EVERY DAY amLODIPine Besylate 5 MG Tablet TAKE ONE TABLET BY MOUTH EVERY DAY Taking Fluticasone Propionate 50 MCG/ACT Suspension 1 spray in each nostril Nasally Once a dayTaking Valsartan 320 MG Tablet TAKE ONE TABLET BY MOUTH EVERY DAY Taking amLODIPine Besylate 5 MG Tablet TAKE ONE TABLET BY MOUTH EVERY DAY Not-Taking/PRNGabapentin 400 MG Capsule 1 capsule Orally 3 times a dayRosuvastatin Calcium 40 MG Tablet 1 tablet Orally Once a daytraMADol HCl 50 MG Tablet 1 or 2 tabs Orally 3 times a dayCeleBREX 200 MG Capsule 1 capsule with food Orally Once a dayMedication List reviewed and reconciled with the patientNot-Taking/PRN Gabapentin 400 MG Capsule 1 capsule Orally 3 times a dayNot-Taking/PRN Rosuvastatin Calcium 40 MG Tablet 1 tablet Orally Once a dayNot-Taking/PRN traMADol HCl 50 MG Tablet 1 or 2 tabs Orally 3 times a dayNot-Taking/PRN CeleBREX 200 MG Capsule 1 capsule with food Orally Once a dayMedication List reviewed and reconciled with the patient * Allergies: T hiazide-Type Diuretics: sun sensitivityyes[Allergies Verified] Objective: * Vitals: H t: 68, Wt:220, BMI:33.45, BP:122/80. * P ast Orders: L ab:Liver Panel (Order Date - 08/12/2024) (Collection Date - 08/12/2024) Value Reference Range Bilirubin Total 0.7 0.0-1.0 - mg/dL Bilirubin Direct 0.2 0.0-0.5 - mg/dL Aspartate Amino Transferase 24 5-37 - U/L Alanine Aminotransferase 42 H 0-40 - U/L Total Protein 7.3 6.5-8.0 - g/dL Albumin Level 4.6 3.5-5.0 - g/dL Alkaline Phosphatase 56 39-117 - U/L L ab:Glucose Fasting (Order Date - 08/12/2024) (Collection Date - 08/12/2024) Value Reference Range Glucose Fasting 171 H 60-99 - mg/dL L ab:Lipid Panel with Reflex (Order Date - 08/12/2024) (Collection Date - 08/12/2024) Value Reference Range Triglycerides 192 H <150 - mg/dL Cholesterol 201 H <200 - mg/dL LDL Cholesterol Calculated 116 H <100 - mg/dL HDL Cholesterol 47 >40 - mg/dL L ab:Hemoglobin A1c (Order Date - 08/12/2024) (Collection Date - 08/12/2024) Value Reference Range Hemoglobin A1c % 6.6 H <6.0 - % Estimated Average Glucose 143 - mg/dL * Examination: G eneral Examination: GENERAL APPEARANCE: alert, well hydrated, in no distress , , male. HEAD: normocephalic. SKIN: good turgor. HEART: regular rate and rhythm, no murmurs, rubs, gallops. LUNGS: no wheezes, rales, rhonchi, good air movement, clear to auscultation bilaterally. Assessment: * Assessment: 1. P rediabetes - R73.09 (Primary) 2 . H istory of asthma - Z87.09 3 . O SA (obstructive sleep apnea) - G47.33 4 . E ssential hypertension - I10 5 . T ype 2 diabetes mellitus without complication, without long-term current use of insulin - E11.9 6 . H ypercholesterolemia - E78.00 7 . M yalgia, multiple sites - M79.18 Plan: * Treatment: Value Reference Range H emoglobin A1c 6.8 * Delores Monet 4 07:42:59 AM EDT > ?LAB: Glucose, finger stick* Value Reference Range V alue 158 * Delores Monet 4 07:36:08 AM EDT > Notes: doing well, no need for medication at this time, will continue to monitor??2.?History of asthma? Start Albuterol Sulfate HFA Aerosol Solution, 108 (90 Base) MCG/ACT, 1 puff as needed, Inhalation, every 4 hrs, 30 days, 1, Refills 3;?Stop Rosuvastatin Calcium Tablet, 40 MG, 1 tablet, Orally, Once a day.??3.?FERNANDO (obstructive sleep apnea)? Notes: can't use machine due to coughing??4.?Essential hypertension? Continue Valsartan Tablet, 320 MG, TAKE ONE TABLET BY MOUTH EVERY DAY;?Continue amLODIPine Besylate Tablet, 5 MG, TAKE ONE TABLET BY MOUTH EVERY DAY.?? Notes: well controlled, at goal, will cntinue current regiment??5.?Type 2 diabetes mellitus without complication, without long-term current use of insulin ? Notes: doing well??6.?Hypercholesterolemia? Notes: can't take statins??7.?Myalgia, multiple sites? Notes: had to stop statin due to pain. this went away?? * Procedure Codes: 8 2947 ASSAY, GLUCOSE, BLOOD QUANT, Modifiers: QW 05055 GLYCATED HEMOGLOBIN TEST, Modifiers: QW * * Sign off status: Completed true * Provider: Jessy Nieves MD Date: 0 08/19/2024 Generated for Ilia roberts/Samantha/Kacismitting on: 1 01/03/2025 11:10 PM EST History and Physical Notes * HPI (History of Present Illness) Category Sub-Category Detail Notes Category Not es Symptom(s) patient is a 59 yo male here for 6 month follow up visit, had asthma when he was younger.complaining of cough for one month with post nasal drip, covid tests x 6 all negative Examination Category Sub-Category Detail Notes Category Not es General Examination GENERAL APPEARANCE: alert, w ell hydrated, in no distress , , male HEAD: normocephalic HEART: regular rate and rhy thm, no murmurs, rubs, gallops LUNGS: no wheezes, rales, r honchi, good air movement, clear to auscultation bilaterally SKIN: good turgor
--- OUTSIDE RECORDS SUMMARY | 2025-02-17 02:00 | XMS_ITS ---
Author Organization Bernard Nieves MD Address [address] [place], [place] [id number] Care Team Providers Care Low Voltage Electrician Name Role Phone Bernard Nieves Primary Care Provider Results Component Value Reference Range Notes Complete Blood Count Auto Di ff Reviewed date:02/17/2025 04:30:47 PM Interpretation: Performing Lab:[facility], [address] [place] [phone] Notes/Report: White Blood Count 8.7 4.8-10.8 X10*3/uL Red Blood Count 5.40 4.60-5.80 X10*6/uL Hemoglobin 16.2 14.0-18.0 g/dl Hematocrit 46.8 42.0-52.0 % Mean Corpuscular Volume 86.7 80.0-98.0 fL Mean Corpuscular Hemoglobin 30.0 27.0-33.0 pg Mean Corpuscular HGB Conc 34.6 31.0-36.0 g/dl Red Cell Distribution Width 12.8 11.0-16.0 % Platelet Count 258 160-400 X10*3/uL Mean Platelet Volume 8.8 9.4-12.4 fL Neutrophils Percent Auto 62.5 45-73 % Imm Gran Pct Auto 0.7 0.0-0.4 % Lymphocytes Percent Auto 25.9 20-40 % Monocytes Percent Auto 5.7 2-11 % Eosinophils Percent Auto 4.6 0-4 % Basophils Percent Auto 0.6 0-2 % NRBC Pct Auto 0.0 0.0-0.2 /100WBC Neutrophils Absolute Auto 5.5 2.0-8.3 x10*3/u L Imm Gran Abs Auto 0.06 0.00-0.03 X10*3/uL Lymphocytes Absolute Auto 2.3 1.2-4.9 X10*3/u L Monocytes Absolute Auto 0.5 0.1-1.2 X10*3/uL Eosinophils Absolute Auto 0.4 0.0-0.4 X10*3/u L Basophils Absolute Auto 0.1 0.0-0.2 X10*3/uL NRBC Abs Auto 0.000 0.0-0.012 X10*3/uL Comprehensive [place]. Panel Fa st Reviewed date:02/17/2025 04:28:05 PM Interpretation: Performing Lab:[facility], [address] [place] [phone] Notes/Report: Sodium 136 135-145 mmol/L Potassium 4.6 3.3-5.1 mmol/L Chloride 103 96-108 mmol/L Carbon Dioxide 24 22-29 mmol/L Anion Gap 14 12-20 Blood Urea Nitrogen 16 9-16 mg/dL Creatinine 0.85 0.5-1.4 mg/dL Estimated Glomerular Filt Rate > 60 Chronic Kidney Disease: Estimated GFR < 60 mL/min/1.73m2 Severe Kidney Disease: Estimated GFR < 15 mL/min/1.73m2 Glucose Fasting 182 60-99 mg/dL A fasting glucose of 126 mg/dl or greater on more than one occasion is considered diagnostic of diabetes. Calcium 9.4 8.4-10.2 mg/dL Bilirubin Total 0.7 0.0-1.0 mg/dL Aspartate Amino Transferase 22 5-37 U/L Alanine Aminotransferase 36 0-40 U/L Total Protein 7.4 6.5-8.0 g/dL Albumin Level 4.7 3.5-5.0 g/dL Alkaline Phosphatase 53 39-117 U/L Lipid Panel Reviewed date:02/24/2025 08:37:26 AM Interpretation:[place] LIPIDS 02/24 Performing Lab:[facility], [address] [place] [phone] Notes/Report: Triglycerides 241 <150 mg/dL Desirable Triglyceride: less than 150 mg/dL Borderline High Triglyceride 150-199 mg/dL High Triglyceride: 200-499 mg/dL Very High Triglyceride: greater than or equal to 5OO mg/dL Cholesterol 294 <200 mg/dL Desirable Cholesterol: less than 200 mg/dL Borderline High Cholesterol: 200-239 mg/dL High Cholesterol: greater than 239 mg/dL LDL Cholesterol Calculated 201 <100 mg/dL Desirable LDL: less than 100 mg/dL Near Optimal/Above Optimal LDL: 110-129 mg/dL Borderline High LDL: 130-159 mg/dL High LDL: 160-189 mg/dL Very High LDL: greater than or equal to 190 mg/dL HDL Cholesterol 45 >40 mg/dL Desirable HDL: greater than 40 mg/dL Note: This HDL assay may give artificially low results in patients with liver disease. PSA,Total (Free>4and<10) Reviewed date:02/17/2025 04:28:29 PM Interpretation: Performing Lab:[address] [phone] Notes/Report: PSA,Total (Free>4and<10) 0.14 0.00-4.00 ng/mL A Free PSA was not performed: The percentage of Free PSA can be used to enhance the differentiation of prostate cancer from benign prostatic disease in subjects whose PSA levels are between 4.0 and 10.0 ng/mL. For subjects whose PSA levels are below 4.0 or above 10.0 ng/mL, the risk of prostate cancer is determined on the basis of the PSA alone. Therefore the % Free PSA is recommended only for those subjects whose PSA levels are between 4.0 and 10.0 ng/mL. PSA methodology: Kamara Alinity i Chemiluminescent Microparticle Immunoassay (CMIA) Microalbumin, Random Reviewed date:02/17/2025 04:30:18 PM Interpretation: Performing Lab:[facility], [address] [place] [phone] Notes/Report: Creatinine Urine 105.51 Microalbumin Urine 7.0 Microalbum/Creatinine Ratio Ur 6.6 <30 ug/mg cr Albumin/Creatinine Ratio Reference Ranges: Normal: < 30 ug/mg creatinine Microalbuminuria: 30 - 300 ug/mg creatinine Clinical Albuminuria: > 300 ug/mg creatinine Hemoglobin A1c Reviewed date:02/17/2025 04:28:19 PM Interpretation: Performing Lab:[address] [phone] Notes/Report: Hemoglobin A1c % 7.4 <6.0 % Hemoglobin A1C Reference Range Adults: 4.8 - 6.0 % Non diabetic: < 6.0 % Goal: < 7.0 % Additional Action Suggested: > 8.0 % Note: Hemoglobin A1c results are invalid for patients with abnormal amounts of HbF. Blood transfusions may impact the HbA1c concentration in the patient sample. Estimated Average Glucose 166 eAG = Estimated average glucose which is %A1C expressed as average glucose, using the formula of the B6X-Ydluila Average Glucose study (ADAG), Diabetes Care, Vol.31,#8, Jun. 2007 UA ClnCatch+Micro w/rflx Cul t Reviewed date:02/17/2025 04:37:22 PM Interpretation: Performing Lab:[facility], [address] [place] [phone] Notes/Report: Urine, Clean Catch Color Urine Yellow Appearance Urine Clear PH 5.5 5.0-9.0 Glucose Urine UA Negative Negative mg/dL Urine Blood Negative Negative Specific [place] - Urine 1.020 1.005-1.025 Urine Protein Negative Neg-Trace mg/dL Urine Ketones Negative Negative mg/dL Nitrite Urine Negative Negative Leukocyte Esterase Urine Negative Negative RBC Urine 0-2 0-2 /HPF WBC Urine 0-5 0-5 /HPF Squamous Epithelial Cell Urine 0-2 0-2 /HPF Bacteria Urine None Seen None Seen Hyaline Casts Urine 0-2 0-2 /LPF REASON FOR VISIT yearly fasting labs Encounters Encounter Location Date Provider Diagnosis Bernard Nieves MD [address] [place] [address] [address] [place], [place] [id number] 02/17/2025 Bernard Nieves Blood tests for rout ine general physical examination Z00.00 ; Hypercholesterolemia E78.00 ; Essential hypertension I10 ; Prediabetes R73.09 and Type 2 diabetes mellitus without complication, without long-term current use of insulin E11.9 Assessments Encounter Date Diagnosis (ICD Code) Assessment Notes Treatment Notes Treatment Clinical Notes Section Notes 02/17/2025 Blood tests for rout ine general physical examination (ICD-10 - Z00.00) 02/17/2025 Hypercholesterolemia (ICD-10 - E78.00) 02/17/2025 Essential hypertensi on (ICD-10 - I10) 02/17/2025 Prediabetes (ICD-10 - R73.09) 02/17/2025 Type 2 diabetes brooks itus without complication, without long-term current use of insulin (ICD-10 - E11.9) Plan Of Treatment Next Appt Details Provider Name:Bernard Parson ier, 02/20/2026 07:15:00 AM, [address], [address], [place], [place], [phone], Provider Name:Bernard Parson ier, 02/27/2026 08:30:00 AM, [address], [address], [place], [place], [id number], Progress Notes * Wu ROMANDOB:1965 ([age] yo M)Acc No.[id number]:02/17/2025 Progress Note Patient: Wu WORLEY Provider: Jessy Nieves MD :1965 A ge:59 Y S ex:Male Date:02/17/2025 Address:[address] [place], [place] [phone] Subjective: * Chief Complaints: * 1 . Yearly fasting labs. * Medical History: Objective: * Vitals: Assessment: * Assessment: 1. B lood tests for routine general physical examination - Z00.00 (Primary) 2 .?Hypercholesterolemia - E78.00 3 . E ssential hypertension - I10 4 . P rediabetes - R73.09 5 . T ype 2 diabetes mellitus without complication, without long-term current use of insulin - E11.9 Plan: * Treatment: 2. H ypercholesterolemia L AB: Complete Blood Count Auto Diff (Collection Date & Time - 02/17/2025 07:00 AM) L AB: Comprehensive [place]. Panel Fast (Collection Date & Time - 02/17/2025 07:00 AM) L AB: Lipid Panel (Collection Date & Time - 02/17/2025 07:00 AM) L AB: PSA,Total (Free>4and<10) (Collection Date & Time - 02/17/2025 07:00 AM) L AB: Microalbumin, Random (Collection Date & Time - 02/17/2025 07:00 AM) L AB: Hemoglobin A1c (Collection Date & Time - 02/17/2025 07:00 AM) L AB: UA ClnCatch+Micro w/rflx Cult (Collection Date & Time - 02/17/2025 07:00 AM) 3. E ssential hypertension L AB: Complete Blood Count Auto Diff (Collection Date & Time - 02/17/2025 07:00 AM) L AB: Comprehensive [place]. Panel Fast (Collection Date & Time - 02/17/2025 07:00 AM) L AB: Lipid Panel (Collection Date & Time - 02/17/2025 07:00 AM) L AB: PSA,Total (Free>4and<10) (Collection Date & Time - 02/17/2025 07:00 AM) L AB: Microalbumin, Random (Collection Date & Time - 02/17/2025 07:00 AM) L AB: Hemoglobin A1c (Collection Date & Time - 02/17/2025 07:00 AM) L AB: UA ClnCatch+Micro w/rflx Cult (Collection Date & Time - 02/17/2025 07:00 AM) 4. P rediabetes L AB: Complete Blood Count Auto Diff (Collection Date & Time - 02/17/2025 07:00 AM) L AB: Comprehensive [place]. Panel Fast (Collection Date & Time - 02/17/2025 07:00 AM) L AB: Lipid Panel (Collection Date & Time - 02/17/2025 07:00 AM) L AB: PSA,Total (Free>4and<10) (Collection Date & Time - 02/17/2025 07:00 AM) L AB: Microalbumin, Random (Collection Date & Time - 02/17/2025 07:00 AM) L AB: Hemoglobin A1c (Collection Date & Time - 02/17/2025 07:00 AM) L AB: UA ClnCatch+Micro w/rflx Cult (Collection Date & Time - 02/17/2025 07:00 AM) 5. T ype 2 diabetes mellitus without complication, without long-term current use of insulin L AB: Complete Blood Count Auto Diff (Collection Date & Time - 02/17/2025 07:00 AM) L AB: Comprehensive [place]. Panel Fast (Collection Date & Time - 02/17/2025 07:00 AM) L AB: Lipid Panel (Collection Date & Time - 02/17/2025 07:00 AM) L AB: PSA,Total (Free>4and<10) (Collection Date & Time - 02/17/2025 07:00 AM) L AB: Microalbumin, Random (Collection Date & Time - 02/17/2025 07:00 AM) L AB: Hemoglobin A1c (Collection Date & Time - 02/17/2025 07:00 AM) L AB: UA ClnCatch+Micro w/rflx Cult (Collection Date & Time - 02/17/2025 07:00 AM) * Procedure Codes: 3 6415 VENIPUNCT, ROUTINE* * * The named appointment provid er may or may not be the originator of this progress note, and it is not deemed complete until electronically signed by the appointment provider. Sign off status: Pending * Provider: Jessy Nieves MD Date: 0 02/17/2025 Generated for Ilia roberts/Samantha/Jasitting on: 1 01/03/2025 11:08 PM EST
--- OUTSIDE RECORDS SUMMARY | 2025-02-24 03:00 | XMS_ITS ---
Author Organization Bernard Nieves MD Address [address] [place], [place] [id number] Care Team Providers Care Legal Word Processor Name Role Phone Bernard Nieves Primary Care Provider [phone] Allergies Allergen (clinical drug ingredient) Drug/Non Drug Allergy documented on EMR Reaction Allergy Type Onset Date Status Medicinal product containing thiazide and acting as diuretic agent (product) Thiazide-Type Diuretics sun sensitivity Drug Allergy Active Reason For Referral Reason SCREEN FOR COLON CAN CER Diagnosis 1 Screen for colon can cer (Z12.11) Referral Organization Bernard Nieves MD Referring Provider First Name Bernard Referring Provider Last Name Ezequiel Referring Provider Speciality Internal M edicine Referred Provider Cj Mg Referred Provider Specialty Gastroentero logy General Notes Flakita Valle 02/24/2025 08:43:15 AM >REFERRAL FAXED TO [facility], Flakita Valle 03/03/2025 10:33:44 AM >APPT SCHEDULED WITH DR MG Referral Priority Routine Referral Appointment Date 06/20/2025 Reason HYPERCHOLESTEROLEMIA Diagnosis 1 Hypercholesterolemia (E78.00) Referral Organization Bernard Nieves MD Referring Provider First Name Bernard Referring Provider Last Name Ezequiel Referring Provider Speciality Internal M edicine Referred Provider TOOTIE COLE Referred Provider Specialty Cardiology General Notes Flakita Valle 02/24/2025 08:41:12 AM >REFERRAL FOR NEW PATIENT, Flakita Valle 03/28/2025 11:59:14 AM >NOT BOOKED YET, EULALIO WILL CALL WITH APPT.HE IS NOT URGENT , WILL PROBABLY BE BOOKED FOR JUNE, NishaFlakita Toribio 04/29/2025 01:47:48 PM > 3 MESSAGES LEFT BY [facility], I CALLED LEELA TO INFORM HIM AND HE WILL CALL THEM, NishaIvis Toribioclarence Pepper 05/02/2025 02:05:44 PM >LEELA IS BOOKED FOR JUL 13 @ 215pm, CalosSanthosh Flakita Pepper 07/21/2025 10:24:28 AM >OFFICE NOTE HAS BEEN RECEIVED Referral Priority Routine Referral Appointment Date 07/13/2025 REASON FOR VISIT annual visit, Due for repeat Cologuard, Overdue for Diabetic Eye Exam Patient will call to set up an appt, bluepulse 02/24 LIPIDS Medications Medication SIG (Take, Route, Frequency, Duration) Notes Start Date End Date Status CeleBREX 200 MG 1 capsule with food Orally Once a day for 30 day(s) Not-Taking traMADol HCl 50 MG 1 or 2 tabs Orally 3 times a day for 10 days 01/14/2023 Not-Taki ng Gabapentin 400 MG 1 capsule Orally 3 times a day for 30 days 05/19/2023 Not-Taki ng Albuterol Sulfate HFA 108 (90 Base) MCG/ACT 1 puff as needed Inhalation every 4 hrs for 30 days 08/19/2024 Active Fluticasone Propionate 50 MCG/ACT 1 spray in each nostril Nasally Once a day for 30 day(s) 02/19/2024 Active Valsartan 320 MG TAKE ONE TABLET BY MOUTH EVERY DAY Active amLODIPine Besylate 5 MG TAKE ONE TABLET BY MOUTH EVERY DAY Active Social History Tobacco Use: Social History Observation Description Date Details (start date - stop date) Never Smoker NA - NA Tobacco Use/Smoking Question Answer Notes Patient is a nonsmoker Additional Findings: Tobacco Non-User Cu rrent non-smoker, currently using no form of tobacco Alcohol Screen Question Answer Notes Did you have a drink contain ing alcohol in the past year? Yes How often did you have a dri nk containing alcohol in the past year? 2 to 4 times a month (2 points) How many drinks did you have on a typical day when you were drinking in the past year? 1 or 2 drinks (0 point) How often did you have 6 or more drinks on one occasion in the past year? Never (0 point) Points 2 Interpretation Negative Vital Signs Blood pressure systolic 152 mm Hg 02/25/20 25 Blood pressure diastolic 94 mm Hg 025 Height 68 in 02/24/2025 Weight 220 lbs 02/24/2025 BMI 33.45 kg/m2 02/24/2025 Encounters Encounter Location Date Provider Diagnosis Bernard Nieves MD [address] [place] [address] Drive [address] [place], [place] [id number] 02/24/2025 Bernard Nieves Annual physical exam Z00.00 ; Hypercholesterolemia E78.00 ; Post herpetic neuralgia B02.29 ; Essential hypertension I10 ; Type 2 diabetes mellitus without complication, without long-term current use of insulin E11.9 ; Abdominal pain R10.9 ; Colon cancer screening Z12.11 and Depression screening Z13.31 Assessments Encounter Date Diagnosis (ICD Code) Assessment Notes Treatment Notes Treatment Clinical Notes Section Notes 02/24/2025 Annual physical exam (ICD-10 - Z00.00) referral for colonoscopy, labs reviewed and discussed with patient 02/24/2025 Hypercholesterolemia (ICD-10 - E78.00) referral to cardiology for cholesterol and intolernce to statins 02/24/2025 Post herpetic neural mikie (ICD-10 - B02.29) stable 02/24/2025 Essential hypertensi on (ICD-10 - I10) stable, will continue current regiment 02/24/2025 Type 2 diabetes mellitus without complication, without long-term current use of insulin (ICD-10 - E11.9) a1c is elevated, will continue current regiment and advised on diet, will contnue to monitor 02/24/2025 Abdominal pain (ICD- 10 - R10.9) pending diagnostic testing 02/24/2025 Colon cancer screeni ng (ICD-10 - Z12.11) guaiac negative 02/24/2025 Depression screening (ICD-10 - Z13.31) negative screen Plan Of Treatment Medication Medication Name Sig Start Date Stop Date Notes Valsartan 320 MG TAKE ONE TABLET BY M OUTH EVERY DAY amLODIPine Besylate 5 MG TAKE ONE TABLET BY MOUTH EVERY DAY Treatment Notes Assessment Notes Annual physical exam referral for colono scopy, labs reviewed and discussed with patient Hypercholesterolemia referral to cardiol ogy for cholesterol and intolernce to statins Post herpetic neuralgia stable Essential hypertension stable, will cont inue current regiment Type 2 diabetes mellitus wit hout complication, without long-term current use of insulin a1c is elevated, will continue current regiment and advised on diet, will contnue to monitor Abdominal pain pending diagnostic t esting Colon cancer screening guaiac negative Depression screening negative screen Pending Test Test Name Order Date CT ABD & PELVIS WITH CONTRAST 02/24/2025 Referrals Referral Date Details 02/24/2025 02/24/2025, SCREEN F OR COLON CANCER, [facility] 02/24/2025 02/24/2025, HYPERCHO LESTEROLEMIA, [facility] Next Appt Details Follow Up: after cat scan, [place]: Provider Name:Bernard Parson ier, 02/20/2026 07:15:00 AM, [address], [address], [place], [place], [id number], Provider Name:Bernard Parson ier, 02/27/2026 08:30:00 AM, [address] [facility], [address], [place], [place], [id number], Progress Notes * Wu ROMANDOB:1965 ([age] yo M)Acc No.[id number]:02/24/2025 Progress Notes Patient: Wu WORLEY Provider: Jessy Nieves MD :1965 A ge:59 Y S ex:Male Date:02/24/2025 Address:[address] [place], [place] [id number] Subjective: * Chief Complaints: * A nnual visitDue for repeat CologuardOverdue for Diabetic Eye Exam Patient will call to set up an apptCBACK 02/24 LIPIDS * HPI: D epression Screening: PHQ-9 L ittle interest or pleasure in doing things N ot at all, F eeling down, depressed, or hopeless N ot at all, T rouble falling or staying asleep, or sleeping too much N ot at all, F eeling tired or having little energy N ot at all, P oor appetite or overeating N ot at all, F eeling bad about yourself or that you are a failure, or have let yourself or your family down N ot at all, T rouble concentrating on things, such as reading the newspaper or watching television N ot at all, M oving or speaking so slowly that other people could have noticed; or the opposite, being so fidgety or restless that you have been moving around a lot more than usual N ot at all, T houghts that you would be better off or of hurting yourself in some way N ot at all, T otal Score 0 . I nterpretation and Intervention D epression Screening Findings N egative, F ollow-Up for Depression : review of PHQ-9 found negative result, no follow-up needed. C ommunication Needs: Communication Needs D oes the patient have a hearing impairment N o, D oes the patient have a vision impairment? Y es, I f yes, what is the vision impairment? G lasses, D oes the patient have a cognition impairment? N o. F all Risk: History H ave you had any falls with injury in the past year? N o, H ave you had two or more falls in the past year? N o. S KRIS Questions: SDOH Questions I n the past year have you been worried about losing housing? N o, I n the past year have you or any family members you live with been unable to get any of the following when it was really needed? Check all that apply: N one. S ymptom(s): patient is a 59 yo male here for annual visit with review of recent labs and follow up of chronic issues.having pain in side from shigles/ worse with eating. doesn't hurt when he doesn't eat. * ROS: G eneral/Constitutional: Change in appetite d enies. C hills d enies. F ever d enies. O phthalmologic: Blurred vision d enies. D ischarge d enies. P ain d enies. E NT: Decreased hearing d enies. S ore throat d enies.?Swollen glands d enies. E ndocrine: Cold intolerance d enies. E xcessive thirst d enies. H eat intolerance d enies. W eight loss d enies. R espiratory: Cough d enies. S hortness of breath at rest d enies. S hortness of breath with exertion d enies. W heezing d enies. C ardiovascular: Chest pain at rest d enies. C hest pain with exertion?denies. I rregular heartbeat d enies. S hortness of breath d enies. ? G astrointestinal: Abdominal pain d enies. C hange in bowel habits d enies. D iarrhea d enies. N ausea d enies. R ectal bleeding d enies. V omiting d enies . G enitourinary: Blood in urine d enies. D ifficulty urinating d enies. F requent urination d enies. M usculoskeletal: Painful joints d enies. W eakness d enies. ? S kin: Dry skin d enies. I tching d enies. D enies?Mole(s), changes in moles, new moles or any lesions of concern. D enies P hotosensitivity. R kolton d enies. N eurologic: Dizziness d enies. F ainting d enies. H eadache?denies. * Medical History: * Surgical History: * Hospitalization/Major Diagno stic Procedure: * Family History: F ather: alive 84 yrs. M other: alive 80 yrs. 1 sister(s) . 1 son(s) , 1 daughter(s) . . Denies mental health/substance abuse family history, No pertinent family medical history, Denies mental health/substance abuse family history. * Social History: T obacco Use: T obacco Use/Smoking P atient is a n onsmoker, A dditional Findings: Tobacco Non-User C urrent non-smoker, currently using no form of tobacco. D rugs/Alcohol: A lcohol Screen D id you have a drink containing alcohol in the past year? Y es, H ow often did you have a drink containing alcohol in the past year? 2 to 4 times a month (2 points), H ow many drinks did you have on a typical day when you were drinking in the past year? 1 or 2 drinks (0 point), H ow often did you have 6 or more drinks on one occasion in the past year? N ever (0 point), P oints 2 , I nterpretation N egative. M iscellaneous: C affeine: yes, frequency:, 1-2 cups per day. Children: yes. Community involvements: yes. Exercise: no. Housing: owning. Living with: spouse. Marital status: . Occupation: weeks/months/years, works full-time. Pets: none. Travel outside of the [place]: no. * Medications: T akingFluticasone Propionate 50 MCG/ACT Suspension 1 spray in each nostril Nasally Once a day Albuterol Sulfate HFA 108 (90 Base) MCG/ACT Aerosol Solution 1 puff as needed Inhalation every 4 hrs amLODIPine Besylate 5 MG Tablet TAKE ONE TABLET BY MOUTH EVERY DAY Valsartan 320 MG Tablet TAKE ONE TABLET BY MOUTH EVERY DAY Taking Fluticasone Propionate 50 MCG/ACT Suspension 1 spray in each nostril Nasally Once a day Taking Albuterol Sulfate HFA 108 (90 Base) MCG/ACT Aerosol Solution 1 puff as needed Inhalation every 4 hrs Taking amLODIPine Besylate 5 MG Tablet TAKE ONE TABLET BY MOUTH EVERY DAY Taking Valsartan 320 MG Tablet TAKE ONE TABLET BY MOUTH EVERY DAY Not-Taking/PRNGabapentin 400 MG Capsule 1 capsule Orally 3 times a day traMADol HCl 50 MG Tablet 1 or 2 tabs Orally 3 times a day CeleBREX 200 MG Capsule 1 capsule with food Orally Once a day Medication List reviewed and reconciled with the patientNot-Taking/PRN Gabapentin 400 MG Capsule 1 capsule Orally 3 times a day Not-Taking/PRN traMADol HCl 50 MG Tablet 1 or 2 tabs Orally 3 times a day Not-Taking/PRN CeleBREX 200 MG Capsule 1 capsule with food Orally Once a day Medication List reviewed and reconciled with the patient * Allergies: T hiazide-Type Diuretics: sun sensitivityyes[Allergies Verified] Objective: * Vitals: H t: 68, Wt: 220, BMI:33.45, BP:152/94, Repeat BP:126/90, Wt-k.79. * P ast Orders: L ab:Microalbumin, Random (Order Date - 02/17/2025) (Collection Date & Time - 02/17/2025 07:00 AM) Value Reference Range Creatinine Urine 105.51 - mg/dL Microalbumin Urine 7.0 - mg/L Microalbum Creatinine Ratio Ur 6.6 <30 - ug/ mg cr L ab:Hemoglobin A1c (Order Date - 02/17/2025) (Collection Date & Time - 02/17/2025 07:00 AM) Value Reference Range Hemoglobin A1c % 7.4 H <6.0 - % Estimated Average Glucose 166 - mg/dL L ab:UA ClnCatch+Micro w/rflx Cult (Order Date - 02/17/2025) (Collection Date & Time - 02/17/2025 07:00 AM) Value Reference Range Color Urine Yellow - Appearance Urine Clear - PH 5.5 5.0-9.0 - Glucose Urine UA Negative Negative - mg/dL Urine Blood Negative Negative - Specific Williams - Urine 1.020 1.005-1.025 - Urine Protein Negative Neg-Trace - mg/dL Urine Ketones Negative Negative - mg/dL Nitrite Urine Negative Negative - Leukocyte Esterase Urine Negative Negative - RBC Urine 0-2 0-2 - /HPF WBC Urine 0-5 0-5 - /HPF Squamous Epithelial Cell Urine 0-2 0-2 - /HP F Bacteria Urine None Seen None Seen - Hyaline Casts Urine 0-2 0-2 - /LPF L ab:Complete Blood Count Auto Diff (Order Date - 02/17/2025) (Collection Date & Time - 02/17/2025 07:00 AM) Value Reference Range White Blood Count 8.7 4.8-10.8 - X10*3/uL Red Blood Count 5.40 4.60-5.80 - X10*6/uL Hemoglobin 16.2 14.0-18.0 - g/dl Hematocrit 46.8 42.0-52.0 - % Mean Corpuscular Volume 86.7 80.0-98.0 - fL Mean Corpuscular Hemoglobin 30.0 27.0-33.0 - pg Mean Corpuscular HGB Conc 34.6 31.0-36.0 - g/ dl Red Cell Distribution Width 12.8 11.0-16.0 - % Platelet Count 258 160-400 - X10*3/uL Mean Platelet Volume 8.8 L 9.4-12.4 - fL Neutrophils Percent Auto 62.5 45-73 - % Imm Gran Pct Auto 0.7 H 0.0-0.4 - % Lymphocytes Percent Auto 25.9 20-40 - % Monocytes Percent Auto 5.7 2-11 - % Eosinophils Percent Auto 4.6 H 0-4 - % Basophils Percent Auto 0.6 0-2 - % NRBC Pct Auto 0.0 0.0-0.2 - /100WBC Neutrophils Absolute Auto 5.5 2.0-8.3 - x10* 3/uL Imm Gran Abs Auto 0.06 H 0.00-0.03 - X10*3/uL Lymphocytes Absolute Auto 2.3 1.2-4.9 - X10* 3/uL Monocytes Absolute Auto 0.5 0.1-1.2 - X10*3/ uL Eosinophils Absolute Auto 0.4 0.0-0.4 - X10* 3/uL Basophils Absolute Auto 0.1 0.0-0.2 - X10*3/ uL NRBC Abs Auto 0.000 0.0-0.012 - X10*3/uL L ab:Comprehensive Dixie. Panel Fast (Order Date - 02/17/2025) (Collection Date & Time - 02/17/2025 07:00 AM) Value Reference Range Sodium 136 135-145 - mmol/L Bilirubin Total 0.7 0.0-1.0 - mg/dL Aspartate Amino Transferase 22 5-37 - U/L Alanine Aminotransferase 36 0-40 - U/L Total Protein 7.4 6.5-8.0 - g/dL Albumin Level 4.7 3.5-5.0 - g/dL Alkaline Phosphatase 53 39-117 - U/L Potassium 4.6 3.3-5.1 - mmol/L Chloride 103 96-108 - mmol/L Carbon Dioxide 24 22-29 - mmol/L Anion Gap 14 12-20 - Blood Urea Nitrogen 16 9-16 - mg/dL Creatinine 0.85 0.5-1.4 - mg/dL Estimated Glomerular Filt Rate > 60 - Glucose Fasting 182 H 60-99 - mg/dL Calcium 9.4 8.4-10.2 - mg/dL L ab:PSA,Total (Free>4and<10) (Order Date - 02/17/2025) (Collection Date & Time - 02/17/2025 07:00 AM) Value Reference Range PSA,Total (Free>4and<10) 0.14 0.00-4.00 - ng/ mL * Examination: G eneral Examination: GENERAL APPEARANCE: w ell developed, well nourished, in no acute distress. HEAD: n ormocephalic, atraumatic. EYES: p upils equal, round, reactive to light and accommodation, sclera non-icteric. EARS: n ormal. ORAL CAVITY: m ucosa moist. THROAT: c lear. NECK/THYROID: n misty supple, full range of motion, no cervical lymphadenopathy, no bruits. SKIN: w arm and dry, no suspicious lesions. HEART: r egular rate and rhythm, S1, S2 normal, no murmurs.? LUNGS: c lear to auscultation bilaterally. ABDOMEN: a bnormal,with marked tenderness to palpation in mid abdomen and left lower nondistended, bowel sounds present, normal, no organomegaly , no masses palpable. RECTAL EXAM: n ormal tone, no external hemorrhoids, no masses palpable, prostate normal, stool guaiac negative. MALE GENITOURINARY: c ircumcised, no testicular mass, testes descended bilaterally. EXTREMITIES: n o clubbing, cyanosis, or edema. NEUROLOGIC: n onfocal, motor strength normal upper and lower extremities, sensory exam intact. Assessment: * Assessment: 1. A nnual physical exam - Z00.00 (Primary) 2 . H ypercholesterolemia - E78.00 3 . P ost herpetic neuralgia - B02.29 4 . E ssential hypertension - I10 5 . T ype 2 diabetes mellitus without complication, without long-term current use of insulin - E11.9 6 . A bdominal pain - R10.9 ?7. C olon cancer screening - Z12.11 8 . D epression screening - Z13.31? Plan: * Treatment: 2. H ypercholesterolemia Notes: referral to cardiology for cholesterol and intolernce to statins ? Referral To:[facility] Reason:HYPERCHOLESTEROLEMIA 3. P ost herpetic neuralgia Notes: stable 4. E ssential hypertension Continue amLODIPine Besylate Tablet, 5 MG, TAKE ONE TABLET BY MOUTH EVERY DAY; C ontinue Valsartan Tablet, 320 MG, TAKE ONE TABLET BY MOUTH EVERY DAY. Notes: stable, will continue current regiment 5. T ype 2 diabetes mellitus without complication, without long-term current use of insulin Notes: a1c is elevated, will continue current regiment and advised on diet, will contnue to monitor? 6. A bdominal pain I maging: CT ABD & PELVIS WITH CONTRAST Notes: pending diagnostic testing??7.?Colon cancer screening? Notes: guaiac negative??8.?Depression screening? Notes: negative screen??9.?Others? Referral To:[facility]??Gastroenterology ?Reason:SCREEN FOR COLON CANCER * Procedure Codes: * Preventive Medicine: Diabetes Care Plan: P atient Lifestyle Goals N eeds to maintain diet control.?Treatment Goals A 1C< 7. B arriers N eeds better diet control. S elf-Managment Plan I ncrease light exercise to 3 times a week for 30 minutes. E xpected Outcome m aintaining stable blood sugar levels within a target range. * Follow Up: a fter cat scan * * Sign off status: Completed true * Provider: Jessy Nieves MD Date: 0 02/24/2025 Generated for Ilia roberts/Samantha/eTransmitting on: 1 01/03/2025 11:08 PM EST History and Physical Notes * HPI (History of Present Illness) Category Sub-Category Detail Notes Category Not es Symptom(s) patient is a 59 yo male here for annual visit with review of recent labs and follow up of chronic issues.having pain in side from shigles/ worse with eating. doesn't hurt when he doesn't eat. Depression Screening PHQ-9 Little inte rest or pleasure in doing things: Not at all Feeling down, depressed, or hopeless: No t at all Trouble falling or staying asleep, or sl eeping too much: Not at all Feeling tired or having little energy: N ot at all Poor appetite or overeating: Not at all Feeling bad about yourself o r that you are a failure, or have let yourself or your family down: Not at all Trouble concentrating on thi ngs, such as reading the newspaper or watching television: Not at all Moving or speaking so slowly that other people could have noticed; or the opposite, being so fidgety or restless that you have been moving around a lot more than usual: Not at all Thoughts that you would be b ada off or of hurting yourself in some way: Not at all Total Score: 0 Interpretation and Intervention Depression Aliza leonard Findings: Negative Follow-Up for Depression: : review of PH Q-9 found negative result, no follow-up needed SDOH Questions SDOH Questions In the past year have you been worried about losing housing?: No In the past year have you or any family members you live with been unable to get any of the following when it was really needed? Check all that apply:: None Fall Risk History Have you had any falls with injury i n the past year?: No Have you had two or more falls in the year?: No Communication Needs Communication Needs Does the patient have a hearing impairment: No Does the patient have a vision impairmen t?: Yes If yes, what is the vision impairment?: Glasses Does the patient have a cognition impair ment?: No Examination Category Sub-Category Detail Notes Category Not es General Examination GENERAL APPEARANCE: well dev eloped, well nourished, in no acute distress HEAD: normocephalic, atrau matic EYES: pupils equal, round, reactive to light and accommodation, sclera non-icteric EARS: normal THROAT: clear NECK/THYROID: neck supple, full ra nge of motion, no cervical lymphadenopathy, no bruits HEART: regular rate and rhy thm, S1, S2 normal, no murmurs LUNGS: clear to auscultatio n bilaterally ABDOMEN: abnormal,with marked tenderness to palpation in mid abdomen and left lower nondistended, bowel sounds present, normal, no organomegaly , no masses palpable NEUROLOGIC: nonfocal, motor stre ngth normal upper and lower extremities, sensory exam intact SKIN: warm and dry, no espinoza picious lesions EXTREMITIES: no clubbing, cyanosi s, or edema MALE GENITOURINARY: circumcised, no test icular mass, testes descended bilaterally RECTAL EXAM: normal tone, no exte rnal hemorrhoids, no masses palpable, prostate normal, stool guaiac negative ORAL CAVITY: mucosa moist Consultation Request Notes Referral Date Referring Provider Referred Provider Not es 02/24/2025 Bernard Nieves Bernard SCREEN FOR COLON CANCER 02/24/2025 Bernard Nieevs HARIHARAN H YPERCHOLESTEROLEMIA
--- OUTSIDE RECORDS SUMMARY | 2025-03-17 09:15 | XMS_ITS ---
Author Organization Bernard Nieves MD Address [address] [place], [place] [phone] Care Team Providers Care Foreign Food Cook Specialty Name Role Phone Bernard Nieves Primary Care Provider [phone] Allergies Allergen (clinical drug ingredient) Drug/Non Drug Allergy documented on EMR Reaction Allergy Type Onset Date Status Medicinal product containing thiazide and acting as diuretic agent (product) Thiazide-Type Diuretics sun sensitivity Drug Allergy Active REASON FOR VISIT REVIEW CT SCAN Medications Medication SIG (Take, Route, Frequency, Duration) Notes Start Date End Date Status CeleBREX 200 MG 1 capsule with food Orally Once a day for 30 day(s) Not-Taking Gabapentin 300 MG 1 capsule Orally 3 times a day for 90 days 05/19/2023 Active Fluticasone Propionate 50 MCG/ACT 1 spray in each nostril Nasally Once a day for 30 day(s) 02/19/2024 Active Albuterol Sulfate HFA 108 (90 Base) MCG/ACT 1 puff as needed Inhalation every 4 hrs for 30 days 08/19/2024 Active amLODIPine Besylate 5 MG TAKE ONE TABLET BY MOUTH EVERY DAY Active Valsartan 320 MG TAKE ONE TABLET BY MOUTH EVERY DAY Active amLODIPine Besylate 10 MG 1 tablet Orall y Once a day for 90 days 03/17/2025 Active traMADol HCl 50 MG 1 or 2 tabs Orally 3 times a day for 10 days 01/14/2023 Not-Kenneth roberts Vital Signs Blood pressure systolic 148 mm Hg 03/17/20 25 Blood pressure diastolic 96 mm Hg 025 Height 68 in 03/17/2025 Weight 225 lbs 03/17/2025 BMI 34.21 kg/m2 03/17/2025 weight is up 5 pounds since 02-24-25 Encounters Encounter Location Date Provider Diagnosis Bernard Nieves MD [address] [place] [address] [place] [phone] 03/17/2025 Bernard Nieves Neuropathy G62.9 and Essential hypertension I10 Assessments Encounter Date Diagnosis (ICD Code) Assessment Notes Treatment Notes Treatment Clinical Notes Section Notes 03/17/2025 Neuropathy (ICD-10 - G62.9) will continue to monitor 03/17/2025 Essential hypertension (ICD-10 - I10) paient verbalized understanding of medication and directions for use Plan Of Treatment Medication Medication Name Sig Start Date Stop Date Notes Gabapentin 300 MG 1 capsule Orally 3 t imes a day for 90 days 05/19/2023 amLODIPine Besylate 10 MG 1 tablet Orall y Once a day for 90 days 03/17/2025 Treatment Notes Assessment Notes Neuropathy will continue to mon itor Essential hypertension paient verbalized understanding of medication and directions for use Next Appt Details Follow Up: 3 Months, Reason: Provider Name:Bernard miguel, 02/20/2026 07:15:00 AM, [address] [place] [address], [address] [place] [address], [phone], Provider Name:Bernard miguel, 02/27/2026 08:30:00 AM, [address] [place] [address], Suite [facility], [place], [place], [phone], Progress Notes * Wu ROMANDOB:1965 ([age] yo M)Acc No.[id number]:03/17/2025 Patient: Anurag HAN Wu Provider: Jessy Nieves MD :1965 A ge:60 Y S ex:Male Date:03/17/2025 Address:[address] [place] [address], [address] [id number] Subjective: * Chief Complaints: * R EVIEW CT SCAN * HPI: S ymptom(s): patient is a 60 yo male here to discuss recent CT/ still nhaving pains in area of the shingles. had problems with muscl cramps since stopping the statins. * ROS: G eneral/Constitutional: Denies C hills. D enies F atigue. D enies F ever. D enies H eadache. E NT: Denies S ore throat. R espiratory: Denies C ough. D enies S hortness of breath at rest. D enies S hortness of breath with exertion. G astrointestinal: Denies D iarrhea. D enies N ausea. * Medical History: * Surgical History: * [...] Objective: * Vitals: H t: 68, Wt: 225, BMI:34.21, BP:148/96, Repeat BP:146/104, Wt-k.06. weight is up 5 pounds since 02-24-25. * Examination: G eneral Examination: GENERAL APPEARANCE: a lert, well hydrated, in no distress.? HEAD: n ormocephalic. SKIN: g ood turgor. HEART: r egular rate and rhythm, no murmurs, rubs, gallops.? LUNGS: n o wheezes, rales, rhonchi, good air movement, clear to auscultation bilaterally. Assessment: * Assessment: 1. N europathy - G62.9 (Primary) 2 . E ssential hypertension - I10 ? Plan: * Treatment: 2. E ssential hypertension Start amLODIPine Besylate Tablet, 10 MG, 1 tablet, Orally, Once a day, 90 days, 90 Tablet, Refills 3. Notes: paient verbalized understanding of medication and directions for use * Procedure Codes: * Follow Up: 3 Months * * Sign off status: Completed true * Provider: Jessy Nieves MD Date: 0 03/17/2025 Generated for Ilia roberts/Samantha/Jasitting on: 1 01/03/2025 11:06 PM EST History and Physical Notes * HPI (History of Present Illness) Category Sub-Category Detail Notes Category Not es Symptom(s) patient is a 60 yo male here to discuss recent CT/ still nhaving pains in area of the shingles. had problems with muscl cramps since stopping the statins. Examination Category Sub-Category Detail Notes Category Not es General Examination GENERAL APPEARANCE: alert, w ell hydrated, in no distress HEAD: normocephalic HEART: regular rate and rhy thm, no murmurs, rubs, gallops LUNGS: no wheezes, rales, r honchi, good air movement, clear to auscultation bilaterally SKIN: good turgor
--- OUTSIDE RECORDS SUMMARY | 2025-06-02 05:36 | XMS_ITS ---
Author Organization Bernard Nieves MD Address [address] [place] [phone] Care Team Providers Care Top Tile Decorator Name Role Phone Bernard Nieves Primary Care Provider [phone] REASON FOR VISIT ins referral Encounters Encounter Location Date Provider Diagnosis Bernard Nieves MD [facility] [address] [place], [place] [phone] 06/02/2025 Bernard Nieves Plan Of Treatment Next Appt Details Provider Name:Bernard Parson ieliam, 02/20/2026 07:15:00 AM, [address] [place] [address], [address], [place], [place], [phone], Provider Name:Bernard miguel, 02/27/2026 08:30:00 AM, [address] [place] [address], [address], [place], [place], [phone], Progress Notes * Wu ROMANDOB:1965 ([age] yo M)Acc No.[id number]:06/02/2025 Patient: Wu WORLEY :1965 A ge:60 Y S ex:Male Address:[place], [address] * true * Date: Generated for Ilia roberts/Samantha/eTransmitting on: 01/03/2025 11:07 PM EST
--- OUTSIDE RECORDS SUMMARY | 2025-06-23 09:00 | XMS_ITS ---
Author Organization Bernard Nieves MD Address [address] [place], [place] [phone] Care Team Providers Care User Experience Manager Name Role Phone Bernard Nieves Primary Care Provider [phone] Allergies Allergen (clinical drug ingredient) Drug/Non Drug Allergy documented on EMR Reaction Allergy Type Onset Date Status Medicinal product containing thiazide and acting as diuretic agent (product) Thiazide-Type Diuretics sun sensitivity Drug Allergy Active Results Component Value Reference Range Notes Hemoglobin A1c Reviewed date:06/23/2025 02:01:36 PM Interpretation: Performing Lab: Notes/Report: Hemoglobin A1c 7.8 Glucose, finger stick Reviewed date:06/23/2025 01:55:04 PM Interpretation: Performing Lab: Notes/Report: Value 138 Reason For Referral Reason umbilical hernia Diagnosis 1 Umbilical hernia (K4 2.9) Referral Organization Bernard Nieves MD Referring Provider First Name Bernard Referring Provider Last Name Ezequiel Referring Provider Speciality Internal M edicine Referred Provider Dave Lieberman Referred Provider Specialty Surgery General Notes Elena Jacinto 0 06/27/2025 10:14:17 AM >info faxed, Elena Jacinto 06/27/2025 11:47:05 AM >called patient with referral info and mailed Referral Priority Routine Referral Appointment Date 08/03/2025 REASON FOR VISIT 3 month Medications Medication SIG (Take, Route, Frequency, Duration) Notes Start Date End Date Status Fluticasone Propionate 50 MCG/ACT 1 spray in each nostril Nasally Once a day for 30 day(s) 02/19/2024 Active amLODIPine Besylate 10 MG 1 tablet Orall y Once a day for 90 days 03/17/2025 Active traMADol HCl 50 MG 1 or 2 tabs Orally 3 times a day for 10 days 01/14/2023 Not-Taki ng CeleBREX 200 MG 1 capsule with food Orally Once a day for 30 day(s) Not-Taking Gabapentin 300 MG 1 capsule Orally 3 times a day for 90 days 06/23/2025 Active Albuterol Sulfate HFA 108 (90 Base) MCG/ACT 1 puff as needed Inhalation every 4 hrs for 30 days 08/19/2024 Active Valsartan 320 MG TAKE ONE TABLET BY MOUTH EVERY DAY Active Vital Signs Blood pressure systolic 112 mm Hg 06/23/20 25 Blood pressure diastolic 86 mm Hg 025 Height 68 in 06/23/2025 Weight 223 lbs 06/23/2025 BMI 33.9 kg/m2 06/23/2025 weight is down 2 pounds [facility] jessi 03-17-25 Encounters Encounter Location Date Provider Diagnosis Bernard Nieves MD [address] [place] [address] [place] [phone] 06/23/2025 Bernard Nieves Type 2 diabetes mellitus without complication, without long-term current use of insulin E11.9 ; Post herpetic neuralgia B02.29 and Umbilical hernia K42.9 Assessments Encounter Date Diagnosis (ICD Code) Assessment Notes Treatment Notes Treatment Clinical Notes Section Notes 06/23/2025 Type 2 diabetes mellitus without complication, without long-term current use of insulin (ICD-10 - E11.9) stable, no need for medication at this time 06/23/2025 Post herpetic neuralgia (ICD-10 - B02.29) patient verbalized understanding of medication and directions for use 06/23/2025 Umbilical hernia (ICD-10 - K42.9) referral to dr rebollar Plan Of Treatment Medication Medication Name Sig Start Date Stop Date Notes Fluticasone Propionate 50 MCG/ACT 1 spray in each nostril Nasally Once a day for 30 day(s) 02/19/2024 Gabapentin 300 MG 1 capsule Orally 3 t imes a day for 90 days 06/23/2025 Treatment Notes Assessment Notes Type 2 diabetes mellitus wit hout complication, without long-term current use of insulin stable, no need for medication at this t [place] Post herpetic neuralgia patient verbaliz ed understanding of medication and directions for use Umbilical hernia referral to dr mazzu account services associate Referrals Referral Date Details 06/23/2025 06/23/2025, umbilica l hernia, Dave Lieberman Next Appt Details Follow Up: 3 Months, Reason: Provider Name:Bernard Parson ier, 02/20/2026 07:15:00 AM, [address], [address], [place], [place], [phone], Provider Name:Bernard Parson ier, 02/27/2026 08:30:00 AM, [address], [address], [place], [place], [phone], Progress Notes * Wu ROMANDOB:1965 ([age] yo M)Acc No.[id number]:06/23/2025 Progress Notes Patient: Wu WORLEY Provider: Jessy Nieves MD :1965 A ge:60 Y S ex:Male Date:06/23/2025 Address:[address] [place], [place] [phone] Subjective: * Chief Complaints: * 3 month * HPI: S ymptom(s): patient is a 60 yo male here for 3 month follow whitney visit/ doing well. * ROS: G eneral/Constitutional: Denies C hills. D enies F atigue. D enies F ever. D enies H eadache. E NT: Denies S ore throat. E ndocrine: Denies D ifficulty sleeping. D enies D izziness.?Denies E xcessive sweating. D enies E xcessive thirst. D enies F requent urination. R espiratory: Denies C ough. D enies [...] puff as needed Inhalation every 4 hrs Valsartan 320 MG Tablet TAKE ONE TABLET BY MOUTH EVERY DAY amLODIPine Besylate 10 MG Tablet 1 tablet Orally Once a day Taking Fluticasone Propionate 50 MCG/ACT Suspension 1 spray in each nostril Nasally Once a day Taking Albuterol Sulfate HFA 108 (90 Base) MCG/ACT Aerosol Solution 1 puff as needed Inhalation every 4 hrs Taking Valsartan 320 MG Tablet TAKE ONE TABLET BY MOUTH EVERY DAY Taking amLODIPine Besylate 10 MG Tablet 1 tablet Orally Once a day Not-Taking/PRNtraMADol HCl 50 MG Tablet 1 or 2 tabs Orally 3 times a day CeleBREX 200 MG Capsule 1 capsule with food Orally Once a day Not-Taking/PRN traMADol HCl 50 MG Tablet 1 or 2 tabs Orally 3 times a day Not-Taking/PRN CeleBREX 200 MG Capsule 1 capsule with food Orally Once a day DiscontinuedamLODIPine Besylate 5 MG Tablet TAKE ONE TABLET BY MOUTH EVERY DAY Gabapentin 300 MG Capsule 1 capsule Orally 3 times a day Medication List reviewed and reconciled with the patientDiscontinued amLODIPine Besylate 5 MG Tablet TAKE ONE TABLET BY MOUTH EVERY DAY Discontinued Gabapentin 300 MG Capsule 1 capsule Orally 3 times a day Medication List reviewed and reconciled with the patient * Allergies: T hiazide-Type Diuretics: sun sensitivityyes[Allergies Verified] Objective: * Vitals: H t: 68, Wt: 223, BMI:33.9, BP:112/86, Wt-k.15. weight is down 2 pounds since 03-17-25. * Examination: G eneral Examination: GENERAL APPEARANCE: a lert, well hydrated, in no distress.? HEAD: n ormocephalic. SKIN: g ood turgor. HEART: n o murmurs, rubs, gallops. LUNGS: n o wheezes, rales, rhonchi, good air movement, clear to auscultation bilaterally. ABDOMEN: w ith small umbilical hernia. ? Assessment: * Assessment: 1. T ype 2 diabetes mellitus without complication, without long-term current use of insulin - E11.9 (Primary) 2 . P ost herpetic neuralgia - B02.29 3 . U mbilical hernia - K42.9 Plan: * Treatment: Value Reference Range H emoglobin A1c 7.8 ?LAB: Glucose, finger stick (Collection Date & Time - 06/23/2025)* Value Reference Range V alue 138 Notes: stable, no need for medication at this time??2.?Post herpetic neuralgia? Start Gabapentin Capsule, 300 MG, 1 capsule, Orally, 3 times a day, 90 days, 270 Capsule, Refills 5.?? Notes: patient verbalized understanding of medication and directions for use?? 3.?Umbilical hernia? Notes: referral to dr rebollar? Referral To:Dave Lieberman??Surgery ?Reason:umbilical hernia * Procedure Codes: 8 2947 ASSAY, GLUCOSE, BLOOD QUANT, Modifiers: QW 06475 GLYCATED HEMOGLOBIN TEST, Modifiers: QW * Follow Up: 3 Months * * Sign off status: Completed true * Provider: Jessy Nieves MD Date: 0 06/23/2025 Generated for Ilia roberts/Samantha/Kacismitting on: 1 01/03/2025 11:08 PM EST History and Physical Notes * HPI (History of Present Illness) Category Sub-Category Detail Notes Category Not es Symptom(s) patient is a 60 yo male here for 3 month follow whitney visit/ doing well. Examination Category Sub-Category Detail Notes Category Not es General Examination GENERAL APPEARANCE: alert, w ell hydrated, in no distress HEAD: normocephalic HEART: no murmurs, rubs, ga llops LUNGS: no wheezes, rales, r honchi, good air movement, clear to auscultation bilaterally ABDOMEN: with small umbilical hernia SKIN: good turgor Consultation Request Notes Referral Date Referring Provider Referred Provider Not es 06/23/2025 Bernard Nieves Francis umbili jyotsna hernia
--- OUTSIDE RECORDS SUMMARY | 2025-08-05 02:30 | XMS_ITS ---
Author Organization [facility] Address [address] [place] [address] Care Team Providers Care Shot Grinder Operator Name Role Phone Ezequiel MONACO, Bernard Primary Care Provider Cj Guajardo Jr [phone] REASON FOR VISIT screening Encounters Encounter Location Date Provider Diagnosis [facility] [address] [place] [id number] 08/05/2025 Cj Gross Jr Plan Of Treatment No Information Progress Notes * СЕРГЕЙ POSADA MDOB:1965 (60 yo M)Acc No.[id number]:08/05/2025 COLON WITH MAC Patient: Anurag SHELDONСЕРГЕЙ Goldman Provider: Abelardo Gross MD :1965 A ge:60 Y S ex:Male Date:08/05/2025 Address:[address] [place], [place] [phone] Pcp:Bernard Nieves MD Subjective: * Chief Complaints: * S creening Billing Information: * Procedure Codes: * The named appointment provid er may or may not be the originator of this progress note, and it is not deemed complete until electronically signed by the appointment provider. Sign off status: Pending * Provider: Abelardo Gross MD Date: 0 08/05/2025 Generated for Ilia roberts/Samantha/eTransmitting on: 1 01/03/2025 11:09 PM EST
--- OUTSIDE RECORDS SUMMARY | 2025-10-14 04:15 | XMS_ITS ---
Author Organization Bernard Nieves MD Address [address] [place], [place] [id number] Care Team Providers Care Journalism Professor Name Role Phone Bernard Nieves Primary Care Provider Allergies Allergen (clinical drug ingredient) Drug/Non Drug Allergy documented on EMR Reaction Allergy Type Onset Date Status Medicinal product containing thiazide and acting as diuretic agent (product) Thiazide-Type Diuretics sun sensitivity Drug Allergy Active Results Component Value Reference Range Notes Hemoglobin A1c Reviewed date:10/14/2025 09:06:32 AM Interpretation: Performing Lab: Notes/Report: Hemoglobin A1c 6.7 Glucose, finger stick Reviewed date:10/14/2025 08:59:59 AM Interpretation: Performing Lab: Notes/Report: Value 178 REASON FOR VISIT 4 week Medications Medication SIG (Take, Route, Frequency, Duration) Notes Start Date End Date Status CeleBREX 200 MG 1 capsule with food Orally Once a day for 30 day(s) Not-Taking Gabapentin 300 MG 1 capsule Orally 3 times a day for 90 days 06/23/2025 Not-Taki ng Valsartan 320 MG TAKE ONE TABLET BY MOUTH EVERY DAY Active amLODIPine Besylate 10 MG 1 tablet Orall y Once a day 03/17/2025 Active traMADol HCl 50 MG 1 or 2 tabs Orally 3 times a day for 10 days 01/14/2023 Not-Taki ng Fluticasone Propionate 50 MCG/ACT 1 spray in each nostril Nasally Once a day for 30 day(s) 02/19/2024 Active Albuterol Sulfate HFA 108 (90 Base) MCG/ACT 1 puff as needed Inhalation every 4 hrs for 30 days 08/19/2024 Active Vital Signs Blood pressure systolic 130 mm Hg 10/14/20 25 Blood pressure diastolic 88 mm Hg 025 Height 68 in 10/14/2025 Weight 206 lbs 10/14/2025 BMI 31.32 kg/m2 10/14/2025 weight is down 10 pounds sin 10-27-25 Encounters Encounter Location Date Provider Diagnosis Bernard Nieves MD [address] [place] [address] [place] [phone] 10/14/2025 Bernard Nieves Type 2 diabetes brooks itus without complication, without long-term current use of insulin E11.9 ; Hypercholesterolemia E78.00 and Essential hypertension I10 Assessments Encounter Date Diagnosis (ICD Code) Assessment Notes Treatment Notes Treatment Clinical Notes Section Notes 10/14/2025 Type 2 diabetes brooks itus without complication, without long-term current use of insulin (ICD-10 - E11.9) doing better with good a1c, will continue current regiment 10/14/2025 Hypercholesterolemia (ICD-10 - E78.00) 10/14/2025 Essential hypertensi on (ICD-10 - I10) running a little high today will recheck, will continue current regiment Plan Of Treatment Treatment Notes Assessment Notes Type 2 diabetes mellitus wit hout complication, without long-term current use of insulin doing better with good a1c, will continue current regiment Essential hypertension running a little high today will recheck, will continue current regiment Next Appt Details Provider Name:Bernard miguel, 02/20/2026 07:15:00 AM, [address] [place] [address], [address], [phone], Provider Name:Bernard miguel, 02/27/2026 08:30:00 AM, [address] [place] [address], Suite [facility], [place], [place], [phone], Progress Notes * Wu ROMANDOB:1965 ([age] yo M)Acc No.[id number]:10/14/2025 Progress Notes Patient: Wu WORLEY Provider: Jessy Nieves MD :1965 A ge:60 Y S ex:Male Date:10/14/2025 Address:[address] [place] [address] [place], [id number] Subjective: * Chief Complaints: * 4 week * HPI: S ymptom(s): patient is a 60 yo male here for 4 wek follow up visit. * ROS: G eneral/Constitutional: Denies C hills. [...] Hospitalization/Major Diagno stic Procedure: * Medications: T akingAlbuterol Sulfate HFA 108 (90 Base) MCG/ACT Aerosol Solution 1 puff as needed Inhalation every 4 hrs Fluticasone Propionate 50 MCG/ACT Suspension 1 spray in each nostril Nasally Once a day Valsartan 320 MG Tablet TAKE ONE TABLET BY MOUTH EVERY DAY amLODIPine Besylate 10 MG Tablet 1 tablet Orally Once a day Taking Albuterol Sulfate HFA 108 (90 Base) MCG/ACT Aerosol Solution 1 puff as needed Inhalation every 4 hrs Taking Fluticasone Propionate 50 MCG/ACT Suspension 1 spray in each nostril Nasally Once a day Taking Valsartan 320 MG Tablet TAKE ONE TABLET BY MOUTH EVERY DAY Taking amLODIPine Besylate 10 MG Tablet 1 tablet Orally Once a day Not- Taking/PRNGabapentin 300 MG Capsule 1 capsule Orally 3 times a day traMADol HCl 50 MG Tablet 1 or 2 tabs Orally 3 times a day CeleBREX 200 MG Capsule 1 capsule with food Orally Once a day Not-Taking/PRN Gabapentin 300 MG Capsule 1 capsule Orally 3 times a day Not-Taking/PRN traMADol HCl 50 MG Tablet 1 or 2 tabs Orally 3 times a day Not-Taking/PRN CeleBREX 200 MG Capsule 1 capsule with food Orally Once a day DiscontinuedRosuvastatin Calcium 20 MG Capsule Sprinkle 1 tablet Orally Once a day Ezetimibe 10 MG Tablet 1 tablet Orally Once a day Medication List reviewed and reconciled with the patientDiscontinued Rosuvastatin Calcium 20 MG Capsule Sprinkle 1 tablet Orally Once a day Discontinued Ezetimibe 10 MG Tablet 1 tablet Orally Once a day Medication List reviewed and reconciled with the patient * Allergies: T hiazide-Type Diuretics: sun sensitivityyes[Allergies Verified] Objective: * Vitals: H t: 68, Wt: 206, BMI:31.32, BP:130/88, Repeat BP:138/100, Wt-k.44. weight is down 10 pounds since 09-19-25. * Examination: G eneral Examination: GENERAL APPEARANCE: a lert, well hydrated, in no distress.? SKIN: g ood turgor. HEART: n o murmurs, rubs, gallops, regular rate and rhythm.? LUNGS: n o wheezes, rales, rhonchi, good air movement, clear to auscultation bilaterally. Assessment: * Assessment: 1. T ype 2 diabetes mellitus without complication, without long-term current use of insulin - E11.9 (Primary) 2 . H ypercholesterolemia - E78.00 3 . E ssential hypertension - I10 Plan: * Treatment: Value Reference Range H emoglobin A1c 6.7 ?LAB: Glucose, finger stick (Collection Date & Time - 10/14/2025)* Value Reference Range V alue 178 Notes: doing better with good a1c, will continue current regiment??2.?Essential hypertension? Notes: running a little high today will recheck, will continue current regiment?? * Procedure Codes: 8 2947 ASSAY, GLUCOSE, BLOOD QUANT, Modifiers: QW 89930 GLYCATED HEMOGLOBIN TEST, Modifiers: QW * * Sign off status: Completed true * Provider: Jessy Nieves MD Date: 12/14/2024 Generated for Ilia roberts/Samantha/Jasitting on: 01/03/2025 11:09 PM EST History and Physical Notes * HPI (History of Present Illness) Category Sub-Category Detail Notes Category Not es Symptom(s) patient is a 60 yo male here for 4 wek follow up visit Examination Category Sub-Category Detail Notes Category Not es General Examination GENERAL APPEARANCE: alert, w ell hydrated, in no distress HEART: no murmurs, rubs, ga llops, regular rate and rhythm LUNGS: no wheezes, rales, r honchi, good air movement, clear to auscultation bilaterally SKIN: good turgor
[2025-11-02 15:01] VITALS: BP 140/90; PULSE 99; BMI 31.1
--- NOTE | 2025-11-02 15:01 | A.OFFVIS_ITS ---
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 He recently had blood workup done which showed LDL cholesterol of 200. He does not have any family history of hyperlipidemia. He has known history of hypertension and is on amlodipine and valsartan. He also had herpes zoster involving the left side of the abdomen and has post herpetic neuralgia and is using gabapentin. He is complaining that off and on he gets lower extremity edema. He is saying that he has been holding his amlodipine for that purpose. It appears he was given statins but he had some issue with muscle aches and pains and it was discontinued. He is referred to us for management of high cholesterol. He has no chest discomfort shortness of breath with activities. He has never had any other medical issues. 11/02/2025: He is here for follow-up. He was sent for coronary calcium score in his coronary calcium score is 257 and is observed calcium score is at the 86 percentile for his age. Last cholesterol testing was in January of 2025 when total cholesterol was 294, triglycerides 241, LDL 201 and HDL 45. He is under lot of stress from work and because his father is admitted to the hospital. He is unable to tolerate the rosuvastatin at 10 mg once a week and had significant muscle aches and pains and he has stopped the rosuvastatin. We have tried even once a week dosing any can not tolerate it. He has familiar hyperlipidemia with LDL of 201 and significant coronary calcification which means coronary atherosclerosis. [facility], [facility] Medical History (Updated 11/02/25 @ 15:26 by Venkat Wilcox MD) Sleep apnea Postherpetic neuralgia Diabetes HTN (hypertension) Hyperlipidemia Tingling of upper extremity Surgical History Hx of umbilical hernia repair (09/29/25) Hx of colonoscopy (08/05/25) History of foot surgery History of bilateral knee arthroplasty History of surgical removal of ganglion cyst Hx of shoulder surgery Family History Father Heart attack Stented coronary artery Social History Are you a primary career technical supervisor to a significant other at home: No Do you presently have visiting nurse or other home services: No Alcohol intake: current Alcohol intake frequency: holidays/special occasions only Alcohol type: beer, wine, hard liquor and other Patient Tobacco Use Status: Current someday Tobacco user Tobacco use type: Cigar Review of Systems Const Denies chills, Denies fatigue, Denies fever(s), Denies frequent falls, Denies weakness, Denies weight gain and Denies weight loss ENT Denies dizziness Card Denies chest pain, Denies leg edema, Denies lightheadedness, Denies palpitations, Denies dyspnea and Denies dyspnea on exertion Resp Denies cough, Denies dyspnea and Denies dyspnea on exertion GI Denies hematochezia Musc Denies abnormal gait, Denies muscle weakness, Denies numbness, Denies radiating pain into limb and Denies tingling Neuro Denies abnormal gait, Denies dizziness, Denies frequent falls, Denies numbness, Denies tingling and Denies weakness Endo Denies fatigue and Denies palpitations Physical Exam Vital Signs: Last Vital Signs Pulse 99 11/02/25 15:01 BP 140/90 H 11/02/25 15:01 BMI result Body Mass Index 31.1 GENERAL APPEARANCE: in no acute distress, pleasant. NECK: no carotid bruit, no jugular venous distention. SKIN: no suspicious lesions, warm and dry. HEART: no murmurs, regular rate and rhythm. LUNGS: clear to auscultation bilaterally. ABDOMEN: soft, nontender. EXTREMITIES: no edema. PERIPHERAL PULSES: equal. NEUROLOGIC: No gross deficits, AAO X 3 Office Procedures EKG Details: Sinus rhythm 99 beats per minute, normal axis, can not rule out anterior infarct, QTC 454 milliseconds. [id number], Complete Assessment & Plan Assessment & Plan (1) Hyperlipidemia: Code(s): E78.5 - Hyperlipidemia, unspecified Category: Medical (2) HTN (hypertension): Code(s): I10 - Essential (primary) hypertension Category: Medical (3) Coronary artery calcification: Code(s): I25.10 - Atherosclerotic heart disease of [place] coronary artery without angina pectoris Category: Medical Plan Pleasant 60 year gentleman who is here for follow-up. He was seen for familiar hyperlipidemia with LDL cholesterol of 201. He has statin intolerance unfortunately and can not take statins even once a week. He is on ezetimibe 10 mg daily. His LDL target is less than 55 given coronary artery calcifications with a coronary calcium score of 257. We will start him on PCSK9 inhibitors. Adding baby aspirin 81 mg daily. Changing amlodipine to 5 mg twice a day. He was taking it once a day due to edema but he has stopped gabapentin in his edema has improved significantly and I think we can try twice a day dosing which will probably improve his blood pressure and may not lead to significant edema. Echocardiogram to assess LV function. He has poor R-wave progression on the EKG and we will assess wall motion abnormality. He will follow up with us in few months. Thank you for allowing me to participate in the care of your patient. Please feel free to contact me if you have any questions. Orders: Orders CA echo transthorac w con Today I10 - Essential (primary) hypertension Medications: New aspirin (Adult Aspirin Regimen) 81 mg PO DAILY 120 tabs 4RF I10 - Essential (primary) hypertension amlodipine 5 mg PO BID 120 tabs 3RF I10 - Essential (primary) hypertension evolocumab 140 mg subcut Q2W 2 mL 6RF I10 - Essential (primary) hypertension Coding Level of Care Code Est Pt Level 5 (79494) Diagnoses Hyperlipidemia E78.5 HTN (hypertension) I10 Coronary artery calcification I25.10 CPT Codes EKG - CPT: 70444-[id number], Complete ([id number])
--- OUTSIDE RECORDS SUMMARY | 2025-11-02 23:06 | XMS_ITS | Patient Health Record ---
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 Role Phone Bernard Nieves Primary Care Provider Allergies Allergen (clinical drug ingredient) Drug/Non Drug Allergy documented on EMR Reaction Allergy Type Onset Date Status Medicinal product containing thiazide and acting as diuretic agent (product) Thiazide-Type Diuretics sun sensitivity Drug Allergy Active Results Component Value Reference Range Notes Hemoglobin A1c Reviewed date:06/23/2025 02:01:36 PM Interpretation: Performing Lab: Notes/Report: Hemoglobin A1c 7.8 Hemoglobin A1c Reviewed date:10/14/2025 09:06:32 AM Interpretation: Performing Lab: Notes/Report: Hemoglobin A1c 6.7 Complete Blood Count Auto Di ff Reviewed date:02/17/2025 04:30:47 PM Interpretation: Performing Lab:[facility], [address] [place] [phone] Notes/Report: White Blood Count 8.7 4.8-10.8 X10*3/uL [...] NRBC Abs Auto 0.000 0.0-0.012 X10*3/uL Comprehensive Terry. Panel Fa st Reviewed date:02/17/2025 04:28:05 PM Interpretation: Performing Lab:[facility], [address] [place] [phone] Notes/Report: Sodium 136 135-145 mmol/L Potassium 4.6 [...] U/L Lipid Panel Reviewed date:02/24/2025 08:37:26 AM Interpretation:[facility] LIPIDS 02/24 Performing Lab:[facility], [address] [place] [phone] Notes/Report: Triglycerides 241 <150 mg/dL Desirable Triglyceride: [...] (Free>4and<10) Reviewed date:02/17/2025 04:28:29 PM Interpretation: Performing Lab:[address] [phone] Notes/Report: PSA,Total (Free>4and<10) 0.14 0.00-4.00 ng/mL A [...] Random Reviewed date:02/17/2025 04:30:18 PM Interpretation: Performing Lab:[facility], [address] [place] [phone] Notes/Report: Creatinine Urine 105.51 Microalbumin Urine 7.0 Microalbum/Creatinine Ratio Ur 6.6 <30 ug/mg cr Albumin/Creatinine Ratio Reference Ranges: Normal: < 30 ug/mg creatinine Microalbuminuria: 30 - 300 ug/mg creatinine Clinical Albuminuria: > 300 ug/mg creatinine Hemoglobin A1c Reviewed date:02/17/2025 04:28:19 PM Interpretation: Performing Lab:[facility], [address] [place] [phone] Notes/Report: Hemoglobin A1c % 7.4 <6.0 % [...] average glucose, using the formula of the W2C-Ouicxob Average Glucose study (ADAG), Diabetes Care, Vol.31,#8, Jun. 2007 UA ClnCatch+Micro w/rflx Cul t Reviewed date:02/17/2025 04:37:22 PM Interpretation: Performing Lab:[facility], [address] [place] [phone] Notes/Report: Urine, Clean Catch Color Urine Yellow Appearance Urine Clear PH 5.5 5.0-9.0 Glucose Urine UA Negative Negative mg/dL Urine Blood Negative Negative Specific [place] - Urine 1.020 1.005-1.025 Urine Protein Negative [...] PM Interpretation: Performing Lab: Notes/Report: Value 138 Glucose, finger stick Reviewed date:10/14/2025 08:59:59 AM Interpretation: Performing Lab: Notes/Report: Value 178 Reason For Referral Reason SCREEN FOR COLON CAN CER Diagnosis 1 Screen for colon can cer (Z12.11) Referral Organization Bernard Nieves MD Referring Provider First Name Bernard Referring Provider Last Name Ezequiel Referring Provider Speciality Internal M edicine Referred Provider Cj Mg Referred Provider Specialty Gastroentero logy General Notes Flakita Valle 02/24/2025 08:43:15 AM >REFERRAL FAXED TO Leonard LUCIANO Patti A 03/03/2025 10:33:44 AM >APPT SCHEDULED [...] 01:47:48 PM > 3 MESSAGES LEFT BY [facility], I CALLED LEELA TO INFORM HIM [...] Referring Provider Speciality Internal edicine Referred Provider Dave Lieberman Referred Provider [...] Once a day for 30 day(s) Not-Taking Fluticasone Propionate 50 MCG/ACT 1 spray in each nostril Nasally Once a day for 30 day(s) 02/19/2024 Active Gabapentin 300 MG 1 capsule Orally 3 times a day for 90 days 06/23/2025 Not-Joshi ng Albuterol Sulfate HFA 108 (90 Base) [...] day for 10 days 01/14/2023 Not-Kenneth roberts Immunizations Vaccine Route Administration Date Status Comme nts SARS-COV-2 Pfizer Unknown 05/11/2021 Administered SARS-COV-2 Pfizer Unknown 05/29/2021 Administered Fluarix Quadrivalent Unknown 08/07/2021 Refused Fluarix Quadrivalent Unknown 08/19/2023 Refused Fluarix Quadrivalent Unknown 08/22/2023 Refused Fluarix Quadrivalent - 150 Unknown 09/19/2025 Refused Social History Tobacco Use: Social History [...] Problem Status W/U Status Risk Notes Problem 043754271 Neuropathy (G62.9) Active confirmed Problem 53498461 Essential hypert ension (I10) Active confirmed Problem Prediabetes (115490704) Prediabetes (R73.09) Active confirmed Problem Postherpetic neuralgia (6755546) Post herpetic neuralgia (B02.29) Active confirmed Problem 24507632 Hypercholesterol emia (E78.00) Active confirmed Problem 52197314 FERNANDO (obstructive sleep apnea) (G47.33) Active confirmed Problem 223544679 Type 2 diabetes mellitus without complication, without long-term current use of insulin (E11.9) Active confirmed Vital Signs Blood pressure diastolic 88 mm Hg 10/14/2025 jennyfer ght is down 10 pounds since 09-19-25 Height 68 in 10/14/2025 weight is down 10 pounds since 09-19-25 Blood pressure systolic 130 mm Hg 10/14/2025 weig ht is down 10 pounds since 09-19-25 Weight 206 lbs 10/14/2025 weight is down 10 pounds since 09-19-25 BMI 31.32 kg/m2 10/14/2025 weight is down 10 pounds since 09-19-25 Encounters Encounter Location Date Provider Diagnosis Bernard Nieves MD [address] [place] [id number] 02/17/2025 Bernard Nieves Blood tests for rout ine general physical examination Z00.00 ; Hypercholesterolemia E78.00 ; Essential hypertension I10 ; Prediabetes R73.09 and Type 2 diabetes mellitus without complication, without long-term current use of insulin E11.9 Bernard Nieves MD [address] [id number] 02/24/2025 Bernard Nieves Annual physical exam Z00.00 ; Hypercholesterolemia E78.00 ; Post herpetic neuralgia B02.29 ; Essential hypertension I10 ; Type 2 diabetes mellitus without complication, without long-term current use of insulin E11.9 ; Abdominal pain R10.9 ; Colon cancer screening Z12.11 and Depression screening Z13.31 Bernard Nieves MD [address] [place] [id number] 03/17/2025 Bernard Nieves Neuropathy G62.9 and Essential hypertension I10 Bernard Nieves MD [address] [place] [id number] 06/23/2025 Bernard Nieves Type 2 diabetes brooks itus without complication, without long-term current use of insulin E11.9 ; Post herpetic neuralgia B02.29 and Umbilical hernia K42.9 Bernard Nieves MD [address] [facility] [address] [place] [id number] 09/19/2025 Bernard Nieves Cramp and spasm R25. 2 ; Hypercholesterolemia E78.00 and Essential hypertension I10 Bernard Nieves MD [address] [place] [id number] 10/14/2025 Bernard Nieves Type 2 diabetes brooks itus without complication, without long-term current use of insulin E11.9 ; Hypercholesterolemia E78.00 and Essential hypertension I10 Bernard Nieves MD [address] [place] [id number] 06/02/2025 Bernard Nieves Assessments Encounter Date Diagnosis (ICD Code) Assessment Notes Treatment Notes Treatment Clinical Notes Section Notes 02/17/2025 Blood tests for rout ine general physical examination (ICD-10 - Z00.00) 02/24/2025 Annual physical exam (ICD-10 - Z00.00) [...] understanding of medication and directions for use 09/19/2025 Cramp and spasm (ICD -10 - R25.2) stop the rosovastatin 10/14/2025 Type 2 diabetes mellitus without complication, without long-term current use of insulin (ICD-10 - E11.9) doing better with good a1c, will continue current regiment 02/17/2025 Hypercholesterolemia (ICD-10 - E78.00) 02/24/2025 Post herpetic neural mikie (ICD-10 - B02.29) stable 03/17/2025 Essential hypertensi on (ICD-10 - I10) paient verbalized understanding of medication and directions for use 06/23/2025 Umbilical hernia (ICD-10 - K42.9) referral to dr rebollar 09/19/2025 Hypercholesterolemia (ICD-10 - E78.00) need results of calcium score. done by dr hernandez/ Was done on 08-31-2025 will request copy of results 10/14/2025 Hypercholesterolemia (ICD-10 - E78.00) 02/17/2025 Essential hypertensi on (ICD-10 - I10) 02/24/2025 Essential hypertensi on (ICD-10 - I10) stable, will continue current regiment 09/19/2025 Essential hypertensi on (ICD-10 - I10) stable, willcontinue current regiment 10/14/2025 Essential hypertensi on (ICD-10 - I10) running a little high today will recheck, will continue current regiment 02/17/2025 Prediabetes (ICD-10 - R73.09) 02/24/2025 Type 2 diabetes mellitus without complication, without long-term current use of insulin (ICD-10 - E11.9) a1c is elevated, will continue current regiment and advised on diet, will contnue to monitor 02/17/2025 Type 2 diabetes mellitus without complication, without long-term current use of insulin (ICD-10 - E11.9) 02/24/2025 Abdominal pain (ICD- 10 - R10.9) pending diagnostic testing 02/24/2025 Colon cancer screeni ng (ICD-10 - Z12.11) guaiac negative 02/24/2025 Depression screening (ICD-10 - Z13.31) negative screen Plan Of Treatment Pending Test Test Name Order Date CT ABD & PELVIS WITH CONTRAST 02/24/2025 Next Appt Details Provider Name:Bernard miguel, 02/20/2026 07:15:00 AM, [address] [place] [address], [address] [facility], [place], [place], [phone], Provider Name:Bernard miguel, 02/27/2026 08:30:00 AM, [address] [place] [address], [address], [place], [place], [phone], Insurance Providers Payer Name Payer Address Payer Phone Subscriber Number Group Number Insured Name Patient Relationship to Insured Coverage Start Date Coverage End Date [employer] [address] [place], [place] [id number] Wu Roman Self - patient is the insured Medical (General) History Medical History History ICD Code sunsensitivity to thiazides cologuard 2021 colonoscopy 08/05/25 repeat 10y
--- OUTSIDE RECORDS SUMMARY | 2025-11-02 23:11 | XMS_ITS | Patient Health Record ---
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 Nieves's office to request an [facility] referral for visit with Dr. Gross on 06-20-25 for screening colon, Nadia Felder 06/02/2025 10:33:58 AM >requested referral from Dr. Nieves's office Referral Priority Routine Medications Medication SIG (Take, Route, Frequency, Duration) Notes Start Date End Date Status Valsartan-hydroCHLOROthiaz maged 320-12.5 MG Tablet 1 tablet Orally Once a day; Duration: 30 day(s) 06/20/2025 Active amLODIPine Besylate 10 MG Tablet 1 tablet Orally Once a day; Duration: 30 day(s) 06/20/2025 Active Immunizations Vaccine Route Administration Date Status Comme nts Influenza Unknown 06/20/2025 Refused Social History Tobacco Use: Social History Observation Description Date Details (start date - stop date) Never Smoker NA - NA Social History Drug/Alcohol: Social Info Question Answer Notes AUDIT-C (Standard) Did you have a drink containing alcohol in the past year? Yes How often did you have a drink containing alcohol in the past year? 2 to 3 times a week (3 points) How many drinks did you have on a typical day when you were drinking in the past year? 3 or 4 drinks (1 point) How often did you have six or more drinks on one occasion in the past year? Never (0 point) Points 4 Interpretation Positive Tobacco Use: Social Info Question Answer Notes Tobacco Control (Standard) Tobacco use: Nonsmoker Additional Details Category Social Info Options Details Miscellaneous: Marital status: Occupation: works full-time Problems Problem Type SNOMED Code ICD Code Onset Dates Problem Status W/U Status Risk Notes Problem Screening for malignant neoplasm of colon (928283769) Encounter for screening for malignant neoplasm of colon (Z12.11) Active confirmed Problem Pre-procedure evaluation check (584710063) Preoperative examination (Z01.818) Active confirmed Vital Signs Temperature 98.2 degrees Fahrenheit 06/20/2025 Blood pressure diastolic 01 mm Hg 06/20/2025 Height 69 in 06/20/2025 Blood pressure systolic 001 mm Hg 06/20/2025 Weight 223 lbs 06/20/2025 BMI 32.93 kg/m2 06/20/2025 Encounters Encounter Location Date Provider Diagnosis [facility] [address] [place] [id number] 08/05/2025 Cj Gross Jr [facility] [address] [place] [phone] 06/20/2025 Cj Gross Jr Encounter for screening for malignant neoplasm of colon Z12.11 and Preoperative examination Z01.818 [facility] [address] [place] [phone] 06/20/2025 Cj Gross Jr [facility] [address] [place] [phone] 06/20/2025 Cj Gross Jr [facility] [address] [place] [phone] 06/20/2025 Cj Gross Jr Assessments Encounter Date Diagnosis (ICD Code) Assessment [...] Insured Coverage Start Date Coverage End Date [facility] [employer] [facility] [address] [place] [address] [id number] СЕРГЕЙ POSADA Self - patient is the insured Medical (General) History Medical History History ICD Code Hypertension Diabetes type 2, borderline Postherpetic neuralgia FERNANDO/CPAP
== END 2025-11-02 15:28 | disposition home or self-care (01) ==
LOC: HO.HCS 14:45
PROVIDERS: PCP Internal Medicine; Visit Provider Internal Medicine Cardiovascular Disease
DX: E78.5 Hyperlipidemia, unspecified (principal); I11.9 Hypertensive heart disease without heart failure; I25.10 Atherosclerotic heart disease of native coronary artery without angina pectoris; R94.31 Abnormal electrocardiogram [ECG] [EKG]
CPT/HCPCS: 93010; 99214

== ENCOUNTER → 2025-11-02 14:45 | Outpatient (BNVA) | payer BC, SELFPAY | PROVIDERS: PCP Internal Medicine; Visit Provider Internal Medicine Cardiovascular Disease | DX: E78.5 Hyperlipidemia, unspecified (principal); I10 Essential (primary) hypertension; I25.10 Atherosclerotic heart disease of native coronary artery without angina pectoris; Z79.899 Other long term (current) drug therapy | CPT/HCPCS: 93005 ==